=== PATIENT | female | born 1960 | race African-American/Black ===

== ENCOUNTER → 2016-09-20 | Outpatient (CLI) | payer MEDICARE, MEDICAID | LOC: RAD 08:56 | PROVIDERS: ATTEND Internal Medicine Gastroenterology | DX: Q44.6 Cystic disease of liver (principal); R94.5 Abnormal results of liver function studies | CPT/HCPCS: 76705 ==

== ENCOUNTER → 2016-09-29 | Outpatient (CLI) | payer MEDICARE, MEDICAID ==
[2016-09-29 09:15] LABS: ALANINE AMINOTRANSFERASE 23 U/L (9-52); ALBUMIN 4.1 g/dL (3.5-5.0); ALKALINE PHOSPHATASE 104 U/L (38-126); ANION GAP 11 (5-19); ASPARTATE AMINO TRANSFERASE 24 U/L (14-36); BLOOD UREA NITROGEN 15 mg/dL (7-20); CALCIUM 9.6 mg/dL (8.4-10.2); CARBON DIOXIDE 24 mmol/L (22-30); CHLORIDE 108 mmol/L (98-107); CREATININE RESULT 0.99 mg/dL (0.52-1.25); GLUCOSE 89 mg/dL (75-110); POTASSIUM 4.6 mmol/L (3.6-5.0); SODIUM 142.9 mmol/L (137-145); TOTAL PROTEIN 7.9 g/dL (6.3-8.2)
== END ==
LOC: OD 08:26
PROVIDERS: ATTEND Physician Assistant Surgical
DX: R94.5 Abnormal results of liver function studies (principal)
CPT/HCPCS: 36415; 80053

== ENCOUNTER → 2016-10-07 | Outpatient (CLI) | payer MEDICARE, MEDICAID ==
[2016-10-08 15:34] LABS: ABSOLUTE EOSINOPHILS # (AUTO) 0.2 10^3/uL (0.0-0.6); ABSOLUTE LYMPHOCYTES (AUTO) 1.2 10^3/uL (0.5-4.7); ABSOLUTE MONOCYTES (AUTO) 0.3 10^3/uL (0.1-1.4); ABSOLUTE NEUT (AUTO) 1.1 10^3/uL (1.7-8.2); BASOPHILS % (AUTO) 0.9 % (0-2); EOSINOPHILS % (AUTO) 5.4 % (0-6); HEMATOCRIT 32.9 % (36.0-47.0); HEMOGLOBIN 10.7 g/dL (12.0-15.5); HGB HCT DIFFERENCE -0.8; LYMPHOCYTES % (AUTO) 43.8 % (13-45); MEAN CORPUSCULAR HEMOGLOBIN 26.6 pg (27.0-33.4); MEAN CORPUSCULAR HGB CONC 32.5 g/dL (32.0-36.0); MEAN CORPUSCULAR VOLUME 82 fl (80-97); MONOCYTES % (AUTO) 9.9 % (3-13); RED BLOOD COUNT 4.01 10^6/uL (3.72-5.28); RED CELL DISTRIBUTION WIDTH 15.2 % (11.5-14.0); WHITE BLOOD COUNT 2.8 10^3/uL (4.0-10.5)
== END ==
LOC: OD 15:13
PROVIDERS: ATTEND Physician Assistant Surgical
DX: R94.5 Abnormal results of liver function studies (principal)
CPT/HCPCS: 36415; 85025

== ENCOUNTER 2016-10-16 00:16 | Emergency (ER) | payer MEDICARE, MEDICAID ==
[2016-10-16] MEDS ORDERED: ASPIRIN 81 MG TABLET, CHEWABLE PO ONE (00:29)
--- NOTE | 2016-10-16 01:26 | ER Document Report ---
ED General - General Chief Complaint: Shortness Of Breath Stated Complaint: SHORT OF BREATH,CHEST PAIN Notes: Patient is 56-year-old female presents with complaint of difficulty breathing and some chest tightness. She has been intermittent chest pain for last week and then today she had constant chest tightness. She does have a history of CHF. No history of cardiac stenting. She doesn't history of defibrillator. She's had no fevers. She has had some coughing but no more than usual. She's had increased edema in her lower extremities. No fevers. No vomiting. No diarrhea. She has felt weak over last 24 hours. No other complaints at this time. TRAVEL OUTSIDE OF THE [place] IN LAST 30 DAYS: No - Related Data Allergies/Adverse Reactions: Penicillins Allergy (Verified 06/24/16 18:01) headaches/dizziness Past Medical History - Social History Smoking Status: Never Smoker Frequency of alcohol use: None Drug Abuse: None Family History: Reviewed & Not Pertinent - Past Medical History Cardiac Medical History: Reports: Hx Congestive Heart Failure, Hx Heart Attack, Hx Hypercholesterolemia, Hx Hypertension Denies: Hx Atrial Fibrillation, Hx Coronary Artery Disease - cath 2011, Hx Peripheral Vascular Disease, Hx Pulmonary Embolism, Hx Heart Murmur Pulmonary Medical History: Reports: Hx Pneumonia Denies: Hx Asthma, Hx Bronchitis, Hx COPD, Hx Respiratory Failure, Hx Sleep Apnea, Hx Tuberculosis Neurological Medical History: Denies: Hx Cerebrovascular Accident, Hx Seizures Endocrine Medical History: Reports: Hx Hyperthyroidism. Denies: Hx Graves' Disease, Hx Hypothyroidism Renal/ Medical History: Denies: Hx End Stage Renal Disease, Hx Kidney Stones, Hx Ovarian Cysts, Hx Peritoneal Dialysis, Hx Pelvic Inflammatory Disease Malignancy Medical History: Denies: Hx Breast Cancer, Hx Cervical Cancer, Hx Leukemia, Hx Lung Cancer, Hx Ovarian Cancer GI Medical History: Reports: Hx Gastroesophageal Reflux Disease. Denies: Hx Crohn's Disease, Hx Hiatal Hernia, Hx Irritable Bowel, Hx Liver Failure, Hx Ulcer Musculoskeltal Medical History: Reports Hx Arthritis - osteoporosis ,RLS, Denies Hx Fibromyalgia, Denies Hx Multiple Sclerosis, Denies Hx Muscular Dystrophy Psychiatric Medical History: Denies: Hx Bipolar Disorder, Hx Dementia, Hx Depression, Hx Post Traumatic Stress Disorder, Hx Schizophrenia Traumatic Medical History: Denies: Hx Fractures Infectious Medical History: Denies: Hx HIV Past Surgical History: Reports: Hx Cardiac Surgery - defibrilator, Hx Cholecystectomy, Hx Pacemaker. Denies: Hx Appendectomy, Hx Bowel Surgery, Hx Section, Hx Colostomy, Hx Coronary Artery Bypass Graft, Hx Gastric Bypass Surgery, Hx Herniorrhaphy, Hx Hysterectomy, Hx Mastectomy, Hx Tonsillectomy, Hx Tubal Ligation - Immunizations Immunizations up to date: Yes Hx Diphtheria, Pertussis, Tetanus Vaccination: No Hx Pneumococcal Vaccination: 08/22/12 Review of Systems - Review of Systems Notes: My Normal Review Basic REVIEW OF SYSTEMS: CONSTITUTIONAL : Denies fever, chills, or sweats. Denies recent illness. EENT: Denies eye, ear, throat, or mouth pain or symptoms. Denies nasal or sinus congestion. CARDIOVASCULAR: Complains of chest tightness RESPIRATORY: Shortness of breath is worse when she lays flat GASTROINTESTINAL: Denies abdominal pain. Denies nausea, vomiting, or diarrhea. Denies constipation. Last BM: GENITOURINARY: Denies difficulty urinating, painful urination, burning, frequency, or blood in urine. MUSCULOSKELETAL: Lower extremity edema SKIN: Denies rash or skin lesions. NEUROLOGICAL: Denies altered mental status or loss of consciousness. Denies headache. Denies weakness or paralysis or loss of use of either side. Denies problems with gait or speech. Denies sensory or motor loss. ALL OTHER SYSTEMS REVIEWED AND NEGATIVE. Physical Exam - Vital signs Vitals: Temp Pulse Resp BP Pulse Ox 98.8 F 100 20 146/78 H 98 10/16/16 00:25 10/16/16 00:25 10/16/16 00:25 10/16/16 00:25 10/16/16 00:25 - Notes Notes: General Appearance: Well nourished, alert, cooperative, no acute distress, no obvious discomfort. Well-appearing Vitals: reviewed, See vital signs table. Head: no swelling or tenderness to the head Eyes: PERRL, EOMI, Conjuctiva clear Mouth: No decreasd moisture Neck: Supple, no neck tenderness, No thyromegaly Lungs: No wheezing, few basilar rales, No rhonci, No accessory muscle use, good air exchange bilaterally. Heart: Normal rate, Regular rythm, No murmur, no rub Chest wall: Mild pain to palpation of anterior chest; however, patient says his pain is different than the tightness type pain she's been having. Abdomen: Normal BS, soft, No rigidity, No abdominal tenderness, No guarding, no rebound, no abdominal masses, no organomegaly Extremities: strength 5/5 in all extremities, good pulses in all extremities, 2 + edema in bilateral lower extremities no edema. Skin: warm, dry, appropriate color, no rash Neuro: speech clear, oriented x 3, normal affect, responds appropriately to questions. Course - Re-evaluation Re-evalutation: 10/16/16 04:13 I did reevaluate the patient. She is feeling much better after Lasix. She refused the nitroglycerin as it makes her feel unwell in the past. She also refuses the aspirin because "nobody in my family can take aspirin". I did talk to her about the chest pain. Chest pain is atypical. I'm not convinced is cardiac in nature however she does have risk factors and therefore did talk to her about admission. Patient at this time does not really feel like she wants to be admitted. She says she at this time prefers to go home but I did convince her to at least let me call Dr. Arcos, her primary care physician to discuss the case with him. Unfortunately when I went to call Dr. Arcos the operating informed me that the hospitalist recovering him this weekend. I therefore cannot get in touch with Dr. Arcos. I will back and informed patient of this. She does agree to allow me to at least recheck her troponin to make sure that this is staying at 0. If this is staying at 0 then we will discharge her home as she requests on Lasix to help with little bit of extra edema that she has. If the troponin is not staying stable then we will of course admit. Patient is agreeable to this plan. 10/16/16 05:46 Patient's repeat cardiac enzyme is negative. I did talk to her at length again. Patient says that since receiving the Lasix she's been coughing more and feels like she is clear lung since feeling much better. Her chest pain is resolved. She thinks it is more cold. I suspect is more that she had little bit of fluid overload is causing her symptoms based on the extra fluid she had a lower extremities and the fact that she is more short of breath with lying flat. At this time patient wants to be discharged home. I strongly encouraged her to return to ER immediately if she has current chest pain, difficulty breathing, or feels unwell. I informed her that she must follow-up with Dr. Arcos on Tuesday for close reevaluation. She has an upcoming appointment with her gutter installer, Dr. Reyes, on October 20. She may need an outpatient stress test. She's currently on 40 mg of Lasix in the morning. I will add extra 20 mg at night for the next couple of days just to help rid of the extra fluid she has. Dictation of this chart was performed using voice recognition software; therefore, there may be some unintended grammatical errors. 10/16/16 05:52 - Vital Signs Vital signs: Temp Pulse Resp BP Pulse Ox 98.8 F 100 20 146/78 H 96 10/16/16 00:25 10/16/16 00:25 10/16/16 00:25 10/16/16 00:25 10/16/16 02:29 - Laboratory Result Diagrams: 10/16/16 03:17 10/16/16 02:34 Laboratory results interpreted by me: 10/16/16 10/16/16 10/16/16 02:34 02:34 03:17 Hgb 11.1 L Hct 34.1 L MCH 26.6 L RDW 15.2 H Plt Count 74 L Est GFR (Non-Af Amer) 59 L Total Bilirubin 2.0 H NT-Pro-B Natriuret Pep 1360 H - EKG Interpretation by Me Additional EKG results interpreted by me: 10/16/16 01:26 EKG is reviewed and interpreted by me. EKG shows fibrillation with a rate of [address] segment elevation or depression. Mild T-wave inversions in the lateral precordial leads. Also some T-wave inversions in inferior leads. Occasional PVC. QRS duration QTC intervals are within normal range. 2015 is old EKG for comparison. She has the same T-wave inversions and also was in A. fib at that time. 10/16/16 01:27 10/16/16 05:52 Discharge - Discharge Clinical Impression: Cough Chest pain Qualifiers: Chest pain type: unspecified Qualified Code(s): R07.9 - Chest pain, unspecified Condition: Good Disposition: HOME, SELF-CARE Additional Instructions: CHEST PAIN OF UNCLEAR CAUSE: The exact cause of your chest pain isn't clear. Fortunately, there is no evidence of a dangerous medical condition. Further testing may be required to find the source of the pain. Most often, we find that this pain is coming from the chest wall -- the muscles or rib joints in the chest. But chest pain can come from the lung and lung lining, the esophagus, the heart valves or heart lining, and even the stomach or gallbladder. Rest. Eat lightly until the pain is gone. We may prescribe medicine for pain and inflammation. You should call the physician immediately if the pain radiates to the shoulder, jaw or arms; if you start to run a fever or develop a cough; or if you develop shortness of breath, or other new or alarming symptoms. NORMAL EXAM AND WORKUP: At this time, your examination and workup show no significant abnormality. No significant abnormal physical findings were noted. All laboratory, EKG, and imaging (x-ray) studies that were ordered show no significant abnormality. Although your examination and all studies that were ordered showed no significant abnormal finding, there are no examinations and no studies that are 100% accurate. There is always the possibility that some abnormality could exist and not be detected with physical examination or within the limits and capabilities of laboratory and other studies. You should return or follow up as you were instructed on your visit today for further evaluation if your symptoms do not resolve. FOLLOW-UP CARE: If you have been referred to a physician for follow-up care, call the physician s office for an appointment as you were instructed or within the next two days. If you experience worsening or a significant change in your symptoms, notify the physician immediately or return to the Emergency Department at any time for re-evaluation. Please return to ER immediately if you have recurrent chest pain, any increasing difficulty breathing, fevers, or feel that your symptoms are worsening at all. Is called Dr. Arcos office on Tuesday for very close follow- up appointment. Please talked to him about the option of a possible outpatient stress test. Please inform him that we added a extra small dose of Lasix in the evening to regimen for the next couple of days. Please follow-up with Dr. Reyes, your gutter installer, closely. Dictation of this chart was performed using voice recognition software; therefore, there may be some unintended grammatical errors. Prescriptions: Furosemide [Lasix] 20 mg PO QPM #7 tablet Referrals: GLENYS ARCOS MD [Primary Care Provider] - Follow up as needed JOSE ENRIQUE PEREZ MD [ACTIVE STAFF] - 10/18/16
[2016-10-16] MEDS ORDERED: FUROSEMIDE INJ/PF 40 MG/4 ML SDV IV ONE (01:35)
[2016-10-16] MEDS ORDERED: NITROGLYCERIN 2% OINTMENT 1 GM PACKET TP ONE (03:08)
[2016-10-16 03:14] LABS: ALANINE AMINOTRANSFERASE 23 U/L (9-52); ALKALINE PHOSPHATASE 98 U/L (38-126); ANION GAP 11 (5-19); ASPARTATE AMINO TRANSFERASE 27 U/L (14-36); BLOOD UREA NITROGEN 18 mg/dL (7-20); CALCIUM 9.2 mg/dL (8.4-10.2); CARBON DIOXIDE 24 mmol/L (22-30); CHLORIDE 107 mmol/L (98-107); CREATINE KINASE 81 U/L (30-135); CREATININE RESULT 0.97 mg/dL (0.52-1.25); GLUCOSE 89 mg/dL (75-110); POTASSIUM 4.2 mmol/L (3.6-5.0); SODIUM 141.6 mmol/L (137-145); TOTAL PROTEIN 7.9 g/dL (6.3-8.2)
[2016-10-16 03:27] LABS: CREATINE KINASE MB < 0.22 ng/mL (<4.55); TROPONIN I < 0.012 ng/mL
[2016-10-16 03:29] LABS: ABSOLUTE EOSINOPHILS # (AUTO) 0.1 10^3/uL (0.0-0.6); ABSOLUTE LYMPHOCYTES (AUTO) 1.4 10^3/uL (0.5-4.7); ABSOLUTE MONOCYTES (AUTO) 0.4 10^3/uL (0.1-1.4); ABSOLUTE NEUT (AUTO) 2.3 10^3/uL (1.7-8.2); BASOPHILS % (AUTO) 0.6 % (0-2); EOSINOPHILS % (AUTO) 3.2 % (0-6); HEMATOCRIT 34.1 % (36.0-47.0); HEMOGLOBIN 11.1 g/dL (12.0-15.5); HGB HCT DIFFERENCE -0.8; LYMPHOCYTES % (AUTO) 33.2 % (13-45); MEAN CORPUSCULAR HEMOGLOBIN 26.6 pg (27.0-33.4); MEAN CORPUSCULAR HGB CONC 32.6 g/dL (32.0-36.0); MEAN CORPUSCULAR VOLUME 82 fl (80-97); MONOCYTES % (AUTO) 8.9 % (3-13); RED BLOOD COUNT 4.18 10^6/uL (3.72-5.28); RED CELL DISTRIBUTION WIDTH 15.2 % (11.5-14.0); SEGMENTED NEUTROPHILS % (AUTO) 54.1 % (42-78); WHITE BLOOD COUNT 4.2 10^3/uL (4.0-10.5)
[2016-10-16 05:55] VITALS: BP 130/57
== END 2016-10-16 06:51 | disposition home or self-care (01) ==
LOC: ER 00:16
DX: R05 Cough (principal); R07.9 Chest pain, unspecified; R06.02 Shortness of breath; I50.9 Heart failure, unspecified
CPT/HCPCS: 99285; 36415; 82553; 82550; 85025; 80053; 84484; 83880; 71010; J1940

== ENCOUNTER → 2016-12-22 | Outpatient (CLI) | payer MEDICARE, MEDICAID ==
[2016-12-22 08:58] LABS: ALANINE AMINOTRANSFERASE 17 U/L (9-52); ALKALINE PHOSPHATASE 106 U/L (38-126); ANION GAP 15 (5-19); ASPARTATE AMINO TRANSFERASE 22 U/L (14-36); BILIRUBIN,DIRECT 0.6 mg/dL (0.0-0.4); BILIRUBIN,TOTAL 1.9 mg/dL (0.2-1.3); BLOOD UREA NITROGEN 17 mg/dL (7-20); CALCIUM 9.3 mg/dL (8.4-10.2); CARBON DIOXIDE 24 mmol/L (22-30); CHLORIDE 107 mmol/L (98-107); CHOLESTEROL 129.25 mg/dL (0-200); Direct HDL 44 mg/dL (>40); GLUCOSE 91 mg/dL (75-110); POTASSIUM 4.3 mmol/L (3.6-5.0); SODIUM 145.6 mmol/L (137-145); TOTAL PROTEIN 7.9 g/dL (6.3-8.2); TRIGLYCERIDES 50 mg/dL (<150)
[2016-12-22 09:09] LABS: DIRECT LDL 56 mg/dL (<100)
== END ==
LOC: OD 07:26
PROVIDERS: ATTEND Internal Medicine
DX: E78.2 Mixed hyperlipidemia (principal); Z13.1 Encounter for screening for diabetes mellitus; E55.9 Vitamin D deficiency, unspecified; E66.9 Obesity, unspecified; Z79.899 Other long term (current) drug therapy
CPT/HCPCS: 36415; 80053; 80061; 82306; 84443

== ENCOUNTER → 2017-08-04 | Outpatient (CLI) | payer MEDICARE, MEDICAID ==
--- NOTE | 2017-08-04 10:09 | RADIOLOGY REPORT (SQ) ---
EXAM DESCRIPTION: CHEST PA/LATERAL COMPLETED DATE/TIME: 08/04/2017 8:36 am REASON FOR STUDY: ACUTE BRONCHITIS, UNSPECIFIED COMPARISON: Chest film 10/16/2016, 07/21/2016 EXAM PARAMETERS: NUMBER OF VIEWS: two views TECHNIQUE: Digital Frontal and Lateral radiographic views of the chest acquired. RADIATION DOSE: NA LIMITATIONS: none FINDINGS: LUNGS AND PLEURA: No opacities, masses or pneumothorax. No pleural effusion. MEDIASTINUM AND HILAR STRUCTURES: No masses or contour abnormalities. HEART AND VASCULAR STRUCTURES: Stable marked cardiomegaly BONES: No acute findings. HARDWARE: Left-sided dual lead pacemaker OTHER: No other significant finding. IMPRESSION: Stable marked cardiomegaly. No acute findings TECHNICAL DOCUMENTATION: JOB ID: [id number] [employer]- All Rights Reserved
== END ==
LOC: OD 08:20
PROVIDERS: ATTEND Internal Medicine
DX: J20.9 Acute bronchitis, unspecified (principal)
CPT/HCPCS: 71020

== ENCOUNTER → 2017-08-12 | Outpatient (CLI) | payer MEDICARE, MEDICAID ==
--- NOTE | 2017-08-12 10:48 | WOMENS IMAGING REPORT ---
EXAM DESCRIPTION: BILAT SCREENING MAMMO W/CAD COMPLETED DATE/TIME: 08/12/2017 10:29 am REASON FOR STUDY: ROUTINE SCREENING; Z12.31 Z12.31 ENCNTR SCREEN MAMMOGRAM FOR MALIGNANT NEOPLASM O F MATTIE COMPARISON: 2009 to 2015 TECHNIQUE: Standard craniocaudal and mediolateral oblique views of each breast recorded using [employer] l acquisition. LIMITATIONS: None. FINDINGS: No masses, calcifications or architectural distortion. No areas of suspicion. Read with the assistance of CAD. .[facility] - R2 Cenova Version 1.3 .[facility] - R2 Cenova Version 1.3 .[facility] - R2 Cenova Version 2.4 .[facility] - R2 Cenova Version 2.4 .[facility] - R2 Door To [employer] Selling Agent Version 9.2 IMPRESSION: NORMAL MAMMOGRAM. BIRADS 1. BREAST DENSITY: b. There are scattered areas of fibroglandular density. BIRAD: 1 NEGATIVE RECOMMENDATION: ROUTINE SCREENING COMMENT: The patient has been notified of the results by letter per SA requirements. Additional no tification policies are in place for contacting patient with suspicious or incomplete findings. Quality ID #[id number]: The [employer] recommends an annual screening mammogram for women aged 40 years or over. This facility utilizes a reminder system to ensure that all patients receive reminder letters, and/or direct phone calls for appointments. This includes reminders for routine scr eening mammograms, diagnostic mammograms, or other Breast Imaging Interventions when appropriate. Th is patient will be placed in the appropriate reminder system. The [employer] (ACR) has developed recommendations for screening MRI of the breast s in certain patient populations, to be used in conjunction with mammography. Breast MRI surveillanc e may be appropriate for women with more than 20% lifetime risk of developing breast cancer as deter mined by genetic testing, significant family history of the disease, or history of mantle radiation f or Hodgkins Disease. ACR Practice Guidelines 2008. TECHNICAL DOCUMENTATION: FINDING NUMBER: (1) ASSESSMENT: (1) JOB ID: [id number] [employer]- All Rights Reserved
== END ==
LOC: WI 10:11
PROVIDERS: ATTEND Internal Medicine
DX: Z12.31 Encounter for screening mammogram for malignant neoplasm of breast (principal)
CPT/HCPCS: 77067; G0202

== ENCOUNTER 2017-08-16 03:16 | Emergency (ER) | payer MEDICARE, MEDICAID ==
--- NOTE | 2017-08-16 03:45 | ER Document Report ---
ED Cardiac - General TRAVEL OUTSIDE OF THE [place] IN LAST 30 DAYS: No <CHRISTA VYAS - Last Filed: 08/16/17 07:25> <SHELBY WATSON - Last Filed: 08/16/17 15:27> - General Chief Complaint: Irregular Pulse Stated Complaint: SHORTNESS OF BREATH Time Seen by Provider: 08/16/17 03:30 Notes: Patient is a 56-year-old female with a history of atrial fibrillation and AICD that comes emergency department for chief complaint of her pacemaker firing multiple times today. She states it feels like it is firing weekly, it is painful but not nearly as strong as usual, far more than 10 times tonight. She states it has not fired since she came in by EMS. She denies any current symptoms. She has a [employer] A pacemaker placed in [place] in 2009. She follows with local cardiology Dr. Martino. She takes Xarelto, metoprolol, she states she is compliant with her medications. She also just recently finished prednisone and azithromycin for a upper respiratory infection. (CHRISTA VYAS) - Related Data Allergies/Adverse Reactions: Penicillins Allergy (Verified 06/26/17 07:10) headaches/dizziness Past Medical History - General Information source: Patient - Social History Smoking Status: Never Smoker Frequency of alcohol use: None Drug Abuse: None Lives with: Family Family History: Reviewed & Not Pertinent - Past Medical History Cardiac Medical History: Reports: Hx Congestive Heart Failure, Hx Heart Attack, Hx Hypercholesterolemia, Hx Hypertension Denies: Hx Atrial Fibrillation, Hx Coronary Artery Disease - cath 2011, Hx Peripheral Vascular Disease, Hx Pulmonary Embolism, Hx Heart Murmur Pulmonary Medical History: Reports: Hx Pneumonia Denies: Hx Asthma, Hx Bronchitis, Hx COPD, Hx Respiratory Failure, Hx Sleep Apnea, Hx Tuberculosis Neurological Medical History: Denies: Hx Cerebrovascular Accident, Hx Seizures Endocrine Medical History: Reports: Hx Hyperthyroidism. Denies: Hx Graves' Disease, Hx Hypothyroidism Renal/ Medical History: Denies: Hx End Stage Renal Disease, Hx Kidney Stones, Hx Ovarian Cysts, Hx Peritoneal Dialysis, Hx Pelvic Inflammatory Disease Malignancy Medical History: Denies: Hx Breast Cancer, Hx Cervical Cancer, Hx Leukemia, Hx Lung Cancer, Hx Ovarian Cancer GI Medical History: Reports: Hx Gastroesophageal Reflux Disease. Denies: Hx Crohn's Disease, Hx Hiatal Hernia, Hx Irritable Bowel, Hx Liver Failure, Hx Pancreatitis, Hx Ulcer Musculoskeltal Medical History: Reports Hx Arthritis - osteoporosis ,RLS, Denies Hx Fibromyalgia, Denies Hx Multiple Sclerosis, Denies Hx Muscular Dystrophy Psychiatric Medical History: Denies: Hx Bipolar Disorder, Hx Dementia, Hx Depression, Hx Post Traumatic Stress Disorder, Hx Schizophrenia Traumatic Medical History: Denies: Hx Fractures Infectious Medical History: Denies: Hx HIV Past Surgical History: Reports: Hx Cardiac Surgery - defibrilator 2009, Hx Cholecystectomy, Hx Pacemaker. Denies: Hx Appendectomy, Hx Bowel Surgery, Hx Section, Hx Colostomy, Hx Coronary Artery Bypass Graft, Hx Gastric Bypass Surgery, Hx Herniorrhaphy, Hx Hysterectomy, Hx Mastectomy, Hx Tonsillectomy, Hx Tubal Ligation - Immunizations Immunizations up to date: Yes Hx Diphtheria, Pertussis, Tetanus Vaccination: No Hx Pneumococcal Vaccination: 08/22/12 <CHRISTA VYAS - Last Filed: 08/16/17 07:25> Review of Systems - Review of Systems Constitutional: No symptoms reported EENT: No symptoms reported Cardiovascular: See HPI Respiratory: No symptoms reported Gastrointestinal: No symptoms reported Genitourinary: No symptoms reported Female Genitourinary: No symptoms reported Musculoskeletal: No symptoms reported Skin: No symptoms reported Hematologic/Lymphatic: No symptoms reported Neurological/Psychological: No symptoms reported <CHRISTA VYAS - Last Filed: 08/16/17 07:25> Physical Exam - Vital signs Interpretation: Normal - General General appearance: Appears well, Alert - HEENT Head: Normocephalic, Atraumatic Eyes: Normal Pupils: PERRL - Respiratory Respiratory status: No respiratory distress Chest status: Tender - Mild anterior chest wall tenderness, generally, nonspecific Breath sounds: Normal. No: Decreased air movement, Wheezing Chest palpation: Normal - Cardiovascular Rhythm: Irregularly irregular. No: Tachycardia Heart sounds: S1 appreciated, S2 appreciated Normal capillary refill: Yes - Abdominal Inspection: Normal Distension: No distension Bowel sounds: Normal Tenderness: Nontender Organomegaly: No organomegaly - Back Back: Normal, Nontender - Extremities General upper extremity: Normal inspection, Nontender, Normal color, Normal ROM , Normal temperature General lower extremity: Normal inspection, Nontender, Normal color, Normal ROM , Normal temperature, Normal weight bearing. No: Della's sign - Neurological Neuro grossly intact: Yes Cognition: Normal Orientation: AAOx4 [place] Coma Scale Eye Opening: Spontaneous [place] Coma Scale Verbal: Oriented [place] Coma Scale Motor: Obeys Commands [place] Coma Scale Total: 15 Speech: Normal Motor strength normal: LUE, RUE, LLE, RLE Sensory: Normal - Psychological Associated symptoms: Normal affect, Normal mood - Skin Skin Temperature: Warm Skin Moisture: Dry Skin Color: Normal <CHRISTA VYAS - Last Filed: 08/16/17 07:25> - Vital signs Vitals: Pulse Ox 99 08/16/17 03:25 Course - Laboratory Result Diagrams: 08/16/17 06:28 08/16/17 04:43 <CHRISTA VYAS - Last Filed: 08/16/17 07:25> - Laboratory Result Diagrams: 08/16/17 06:28 08/16/17 04:43 <SHELBY WATSON - Last Filed: 08/16/17 15:27> - Re-evaluation Re-evalutation: EKG shows atrial fibrillation at a rate of 83, right bundle branch block, inverted T waves anteriorly in leads V2, V3, V4, consistent with prior EKG, no significant changes compared to prior. Patient currently asymptomatic. Patient is telling me that her pacemaker has been "recalled", states that she was told that when her battery is dying that they will replace it. Interrogation and workup pending. CBC, chemistry, magnesium, troponin unremarkable. Chest x-ray stable. 08/16/17 07:24 Interrogation report is pending. Based on this patient will likely need transfer to [place] where she sees boiler control room operator Dr. Anderson in the event that she is having multiple AICD shocks/inappropriate shocks. Introduced to Shelby VALLE at bedside. (CHRISTA VYAS) 08/16/17 08:45 to make a long story short, I am now calling [facility] to speak wtih the boiler control room operator covering Dr Wu- the fellow. Mark figueroa the [employer] interrogator in [place] at [phone] says the original interrogator was 3 hours away and having car trouble and is waiting for AAA so were trying to work out the patient going to [place]. 08/16/17 14:27 pt is doing well, room assignment 607, pending [facility] to come and take her to [facility]. No defibs while I have been taking care of her. She has taken her mediations and eaten. (cardiac connection said no pacer replacement today,) 08/16/17 15:27 dr ward confirmed at bedside that pt was stable for transport to [facility]. ( SHELBY WATSON) - Vital Signs Vital signs: Temp Pulse Resp BP Pulse Ox 98.2 F 19 116/67 98 08/16/17 15:01 08/16/17 15:01 08/16/17 15:01 08/16/17 15:01 - Laboratory Laboratory results interpreted by me: 08/16/17 08/16/17 04:43 06:28 Hgb 8.5 L Hct 27.0 L MCV 72 L MCH 22.7 L MCHC 31.6 L RDW 17.2 H Plt Count 119 L BUN 24 H Est GFR (Non-Af Amer) 53 L Total Bilirubin 1.4 H Direct Bilirubin 0.6 H Discharge <CHRISTA VYAS - Last Filed: 08/16/17 07:25> <SHELBY WATSON - Last Filed: 08/16/17 15:27> - Discharge Referrals: GLENYS ARCOS MD [Primary Care Provider] - Follow up as needed
--- NOTE | 2017-08-16 05:41 | RADIOLOGY REPORT (SQ) ---
EXAM DESCRIPTION: CHEST SINGLE VIEW CLINICAL HISTORY: chest pain, pacemaker firing COMPARISON: 08/04/2017 FINDINGS: Single frontal view of the chest. Cardiomegaly. Left-sided dual-lead pacemaker. Leads overlie the chest. No consolidation, pneumothorax, or pleural effusion. No displaced rib fractures identified. Upper abdominal soft tissues are unremarkable. IMPRESSION: 1. No acute pulmonary process identified. Cardiomegaly.
[2017-08-16 05:42] LABS: ALANINE AMINOTRANSFERASE 21 U/L (9-52); ALBUMIN 4.1 g/dL (3.5-5.0); ALKALINE PHOSPHATASE 90 U/L (38-126); ANION GAP 11 (5-19); ASPARTATE AMINO TRANSFERASE 31 U/L (14-36); BILIRUBIN,DIRECT 0.6 mg/dL (0.0-0.4); BILIRUBIN,TOTAL 1.4 mg/dL (0.2-1.3); BLOOD UREA NITROGEN 24 mg/dL (7-20); CALCIUM 9.7 mg/dL (8.4-10.2); CARBON DIOXIDE 26 mmol/L (22-30); CHLORIDE 107 mmol/L (98-107); GLUCOSE 102 mg/dL (75-110); MAGNESIUM 2.1 mg/dL (1.6-2.3); POTASSIUM 4.1 mmol/L (3.6-5.0); SODIUM 144.1 mmol/L (137-145)
[2017-08-16 06:45] LABS: ABSOLUTE BASOPHILS # (AUTO) 0.1 10^3/uL (0.0-0.2); ABSOLUTE EOSINOPHILS # (AUTO) 0.2 10^3/uL (0.0-0.6); ABSOLUTE LYMPHOCYTES (AUTO) 1.5 10^3/uL (0.5-4.7); ABSOLUTE MONOCYTES (AUTO) 0.5 10^3/uL (0.1-1.4); ABSOLUTE NEUT (AUTO) 2.1 10^3/uL (1.7-8.2); BASOPHILS % (AUTO) 1.4 % (0-2); EOSINOPHILS % (AUTO) 3.9 % (0-6); HEMOGLOBIN 8.5 g/dL (12.0-15.5); MEAN CORPUSCULAR HEMOGLOBIN 22.7 pg (27.0-33.4); MEAN CORPUSCULAR HGB CONC 31.6 g/dL (32.0-36.0); MEAN CORPUSCULAR VOLUME 72 fl (80-97); MONOCYTES % (AUTO) 10.9 % (3-13); PLATELET COUNT 119 10^3/uL (150-450); RED BLOOD COUNT 3.76 10^6/uL (3.72-5.28); RED CELL DISTRIBUTION WIDTH 17.2 % (11.5-14.0); SEGMENTED NEUTROPHILS % (AUTO) 48.8 % (42-78); TOTAL CELLS COUNTED % (AUTO) 100 %; WHITE BLOOD COUNT 4.3 10^3/uL (4.0-10.5)
--- NOTE | 2017-08-16 10:59 | EKG REPORT ---
SEVERITY:- ABNORMAL ECG - ATRIAL FIBRILLATION INCOMPLETE RIGHT BUNDLE BRANCH BLOCK : Confirmed by: Kayla Martino MD 16-Aug-2017 10:57:51
--- NOTE | 2017-08-16 15:13 | ER Document Report ---
Doctor's Note Notes: 08/16/17 15:12 Pre-transfer evaluation: Transport team is here to transfer patient to [facility]. Patient is alert, conversant, and in no distress whatsoever. Vital signs are satisfactory. Patient is stable for transport.
[2017-08-16 15:23] VITALS: BP 116/67
== END 2017-08-16 15:25 | disposition short-term general hospital (02) ==
LOC: ER 03:16
DX: Z45.018 Encounter for adjustment and management of other part of cardiac pacemaker (principal); I48.91 Unspecified atrial fibrillation; I45.10 Unspecified right bundle-branch block; I10 Essential (primary) hypertension; I25.2 Old myocardial infarction; Z95.810 Presence of automatic (implantable) cardiac defibrillator; Z79.01 Long term (current) use of anticoagulants; Z79.899 Other long term (current) drug therapy; Z88.0 Allergy status to penicillin
CPT/HCPCS: 36415; 71010; 80053; 83735; 84484; 85025; 93005; 93010; 99285

== ENCOUNTER 2017-09-15 18:36 | Emergency (ER) | payer MEDICARE, MEDICAID ==
[2017-09-15] MEDS ORDERED: ASPIRIN 81 MG TABLET, CHEWABLE PO ONE (20:19)
--- NOTE | 2017-09-15 20:21 | ER Document Report ---
ED Medical Screen (RME) - General Chief Complaint: Shortness Of Breath Stated Complaint: SHORTNESS OF BREATHING Time Seen by Provider: 09/15/17 20:19 Mode of Arrival: Ambulatory Information source: Patient Notes: Patient presents complaining of 3 day history of chest pain, dyspnea, feeling weak and dizzy. Patient denies any nausea, vomiting or diarrhea. Patient states that cough has been nonproductive. Patient states that she has a known leaky heart valve and that her defibrillator has been recalled and only has about 1 year left on the battery. hx: CHF, A. fib, leaky heart valve, defibrillator I have greeted and performed a rapid initial assessment of this patient. A comprehensive ED assessment and evaluation of the patient, analysis of test results and completion of the medical decision making process will be conducted by additional ED providers. TRAVEL OUTSIDE OF THE [place] IN LAST 30 DAYS: No - Related Data Allergies/Adverse Reactions: Penicillins Allergy (Verified 06/26/17 07:10) headaches/dizziness Past Medical History - Social History Frequency of alcohol use: None Drug Abuse: None Family history: Reviewed & Not Pertinent - Past Medical History Cardiac Medical History: Reports: Hx Congestive Heart Failure, Hx Heart Attack, Hx Hypercholesterolemia, Hx Hypertension Denies: Hx Atrial Fibrillation, Hx Coronary Artery Disease - cath 2011, Hx Peripheral Vascular Disease, Hx Pulmonary Embolism, Hx Heart Murmur Pulmonary Medical History: Reports: Hx Pneumonia Denies: Hx Asthma, Hx Bronchitis, Hx COPD, Hx Respiratory Failure, Hx Sleep Apnea, Hx Tuberculosis Neurological Medical History: Denies: Hx Cerebrovascular Accident, Hx Seizures Endocrine Medical History: Reports: Hx Hyperthyroidism. Denies: Hx Graves' Disease, Hx Hypothyroidism Renal/ Medical History: Denies: Hx End Stage Renal Disease, Hx Kidney Stones, Hx Ovarian Cysts, Hx Peritoneal Dialysis, Hx Pelvic Inflammatory Disease Malignancy Medical History: Denies: Hx Breast Cancer, Hx Cervical Cancer, Hx Leukemia, Hx Lung Cancer, Hx Ovarian Cancer GI Medical History: Reports: Hx Gastroesophageal Reflux Disease. Denies: Hx Crohn's Disease, Hx Hiatal Hernia, Hx Irritable Bowel, Hx Liver Failure, Hx Pancreatitis, Hx Ulcer Musculoskeltal Medical History: Reports Hx Arthritis - osteoporosis ,RLS, Denies Hx Fibromyalgia, Denies Hx Multiple Sclerosis, Denies Hx Muscular Dystrophy Psychiatric Medical History: Denies: Hx Bipolar Disorder, Hx Dementia, Hx Depression, Hx Post Traumatic Stress Disorder, Hx Schizophrenia Traumatic Medical History: Denies: Hx Fractures Infectious Medical History: Denies: Hx HIV Past Surgical History: Reports: Hx Cardiac Surgery - defibrilator 2009, Hx Cholecystectomy, Hx Pacemaker. Denies: Hx Appendectomy, Hx Bowel Surgery, Hx Section, Hx Colostomy, Hx Coronary Artery Bypass Graft, Hx Gastric Bypass Surgery, Hx Herniorrhaphy, Hx Hysterectomy, Hx Mastectomy, Hx Tonsillectomy, Hx Tubal Ligation - Immunizations Immunizations up to date: Yes Hx Diphtheria, Pertussis, Tetanus Vaccination: No History of Influenza Vaccine for 05/2017 - 10/2017 Season: No Physical Exam - Vital signs Vitals: Temp Pulse BP Pulse Ox 98.5 F 79 130/69 H 90 L 09/15/17 19:51 09/15/17 19:51 09/15/17 19:51 09/15/17 19:51 - Cardiovascular Rhythm: Irregularly irregular Heart sounds: S1 appreciated, S2 appreciated Course - Vital Signs Vital signs: Temp Pulse Resp BP Pulse Ox 98.5 F 79 130/69 H 90 L 09/15/17 19:51 09/15/17 19:51 09/15/17 19:51 09/15/17 19:51
--- NOTE | 2017-09-15 21:42 | RADIOLOGY REPORT (SQ) ---
EXAM DESCRIPTION: CHEST PA/LAT COMPLETED DATE/TIME: 09/15/2017 8:55 pm REASON FOR STUDY: cp, sob COMPARISON: None. EXAM PARAMETERS: NUMBER OF VIEWS: two views TECHNIQUE: Digital Frontal and Lateral radiographic views of the chest acquired. RADIATION DOSE: NA LIMITATIONS: none FINDINGS: LUNGS AND PLEURA: No acute opacities, masses or pneumothorax. No pleural effusion. MEDIASTINUM AND HILAR STRUCTURES: Stable. HEART AND VASCULAR STRUCTURES: Stable cardiac enlargement. BONES: No acute findings. HARDWARE: Stable cardiac defibrillator. OTHER: No other significant finding. IMPRESSION: No acute findings. TECHNICAL DOCUMENTATION: JOB ID: [id number] [place]-72 2010 [employer]- All Rights Reserved
--- NOTE | 2017-09-16 00:56 | ER Document Report ---
ED Respiratory Problem - General Mode of Arrival: Ambulatory TRAVEL OUTSIDE OF THE [place] IN LAST 30 DAYS: No <CHRISTA VYAS - Last Filed: 09/16/17 08:05> <AJAY DYSON - Last Filed: 09/16/17 16:12> - General Chief Complaint: Shortness Of Breath Stated Complaint: SHORTNESS OF BREATHING Time Seen by Provider: 09/15/17 20:19 Notes: Patient is a 57-year-old female with a history of atrial fibrillation, AICD, congestive heart failure, and multiple valve regurgitation pending double valve replacement next month that comes emergency department for chief complaint of increased dyspnea on exertion over the past 3 days. She reports intermittent sharp pains in her chest which she states is normal for her. She denies fever or chills. Minimal cough. Denies any significant lower extremity swelling. She reports a normal bowel movement this morning. She is on Xarelto. She admits she cannot stop eating ice. She is not on iron. Normal colonoscopy in the past year. Follows with local cardiology Dr. Reyes and also in [place]. (CHRISTA VYAS) - Related Data Allergies/Adverse Reactions: Penicillins Allergy (Verified 06/26/17 07:10) headaches/dizziness Past Medical History - General Information source: Patient - Social History Smoking Status: Never Smoker Frequency of alcohol use: None Drug Abuse: None Lives with: Family Family History: Reviewed & Not Pertinent Patient has suicidal ideation: No Patient has homicidal ideation: No - Past Medical History Cardiac Medical History: Reports: Hx Congestive Heart Failure, Hx Heart Attack, Hx Hypercholesterolemia, Hx Hypertension Denies: Hx Atrial Fibrillation, Hx Coronary Artery Disease - cath 2011, Hx Peripheral Vascular Disease, Hx Pulmonary Embolism, Hx Heart Murmur Pulmonary Medical History: Reports: Hx Pneumonia Denies: Hx Asthma, Hx Bronchitis, Hx COPD, Hx Respiratory Failure, Hx Sleep Apnea, Hx Tuberculosis Neurological Medical History: Denies: Hx Cerebrovascular Accident, Hx Seizures Endocrine Medical History: Reports: Hx Hyperthyroidism. Denies: Hx Graves' Disease, Hx Hypothyroidism Renal/ Medical History: Denies: Hx End Stage Renal Disease, Hx Kidney Stones, Hx Ovarian Cysts, Hx Peritoneal Dialysis, Hx Pelvic Inflammatory Disease Malignancy Medical History: Denies: Hx Breast Cancer, Hx Cervical Cancer, Hx Leukemia, Hx Lung Cancer, Hx Ovarian Cancer GI Medical History: Reports: Hx Gastroesophageal Reflux Disease. Denies: Hx Crohn's Disease, Hx Hiatal Hernia, Hx Irritable Bowel, Hx Liver Failure, Hx Pancreatitis, Hx Ulcer Musculoskeltal Medical History: Reports Hx Arthritis - osteoporosis ,RLS, Denies Hx Fibromyalgia, Denies Hx Multiple Sclerosis, Denies Hx Muscular Dystrophy Psychiatric Medical History: Denies: Hx Bipolar Disorder, Hx Dementia, Hx Depression, Hx Post Traumatic Stress Disorder, Hx Schizophrenia Traumatic Medical History: Denies: Hx Fractures Infectious Medical History: Denies: Hx HIV Past Surgical History: Reports: Hx Cardiac Surgery - defibrilator 2009, Hx Cholecystectomy, Hx Pacemaker. Denies: Hx Appendectomy, Hx Bowel Surgery, Hx Section, Hx Colostomy, Hx Coronary Artery Bypass Graft, Hx Gastric Bypass Surgery, Hx Herniorrhaphy, Hx Hysterectomy, Hx Mastectomy, Hx Tonsillectomy, Hx Tubal Ligation - Immunizations Immunizations up to date: Yes Hx Diphtheria, Pertussis, Tetanus Vaccination: No Hx Pneumococcal Vaccination: 08/22/12 <CHRISTA VYAS - Last Filed: 09/16/17 08:05> Review of Systems - Review of Systems Constitutional: See HPI EENT: No symptoms reported Cardiovascular: See HPI Respiratory: No symptoms reported Gastrointestinal: No symptoms reported Genitourinary: No symptoms reported Female Genitourinary: No symptoms reported Musculoskeletal: No symptoms reported Skin: No symptoms reported Hematologic/Lymphatic: No symptoms reported Neurological/Psychological: No symptoms reported <CHRISTA VYAS Last Filed: 09/16/17 08:05> Physical Exam - Vital signs Interpretation: Normal - General General appearance: Appears well, Alert In distress: None - HEENT Head: Normocephalic, Atraumatic Eyes: Normal Conjunctiva: Normal Extraocular movements intact: Yes Eyelashes: Normal Pupils: PERRL Sinus: Normal Nasal: Normal Mucous membranes: Normal Pharynx: Normal Neck: Normal - Respiratory Respiratory status: No respiratory distress Chest status: Nontender Breath sounds: Normal Chest palpation: Normal - Cardiovascular Rhythm: Irregularly irregular. No: Tachycardia Heart sounds: S1 appreciated, S2 appreciated Murmur: Yes - Abdominal Inspection: Normal Distension: No distension Bowel sounds: Normal Tenderness: Nontender. No: Tender, Guarding - Rectal Stool: Heme positive, See lab result. No: Heme negative, Black, Bloody Hemorrhoids: None - Back Back: Normal, Nontender. No: Tender - Extremities General upper extremity: Normal inspection, Nontender, Normal ROM, Normal strength General lower extremity: Normal inspection, Nontender, Normal ROM, Normal strength - Neurological Neuro grossly intact: Yes Cognition: Normal Orientation: AAOx4 [place] Coma Scale Eye Opening: Spontaneous [place] Coma Scale Verbal: Oriented [place] Coma Scale Motor: Obeys Commands [place] Coma Scale Total: 15 Speech: Normal Motor strength normal: LUE, RUE, LLE, RLE Sensory: Normal - Psychological Associated symptoms: Normal affect, Normal mood - Skin Skin Temperature: Warm Skin Moisture: Dry Skin Color: Normal <CHRISTA VYAS - Last Filed: 09/16/17 08:05> - Vital signs Vitals: Temp Pulse BP Pulse Ox 98.5 F 79 130/69 H 90 L 09/15/17 19:51 09/15/17 19:51 09/15/17 19:51 09/15/17 19:51 Course - Laboratory Result Diagrams: 09/16/17 01:00 09/16/17 01:00 <CHRISTA VYAS - Last Filed: 09/16/17 08:05> - Laboratory Result Diagrams: 09/16/17 01:00 09/16/17 01:00 <AJAY DYSON - Last Filed: 09/16/17 16:12> - Re-evaluation Re-evalutation: EKG shows chronic atrial fibrillation at a rate of 80. Chest x-ray with no pulmonary vascular congestion. Patient has clear lungs on auscultation. No significant lower extremity edema. Troponin is not elevated. CBC demonstrates worsening microcytic anemia. Patient unsure if she is having bloody stools on reevaluation. I performed a digital rectal exam, no obvious or heavy bleeding, however Hemoccult is positive. I suspect patient's worsening dyspnea on exertion is from a gastrointestinal bleed. She is on anticoagulation with Xarelto. She has no upper or lower abdominal pain. Benign abdomen on exam. No hypotension or tachycardia. Type and screen performed. Called dedicated owner operator, we do not have gastroenterology for the rest of the month. Hospitals nearby on diversion. Patient will likely need serial CBCs, possible transfusion, possible endoscopy/colonoscopy. 09/16/[address] Stratton, surgery will be consulting on the patient (consult to be placed) to potentially perform endoscopy/colonoscopy. 09/16/17 07:[address] Arcos. (CHRISTA VYAS) 09/16/17 08:30 Dr. Arcos returned the phone call. I thoroughly reviewed the case with Dr. Arcos and reiterated that she will need admitted for serial CBC monitoring as she does have a down trend in her hemoglobin and hematocrit as well as being on Xarelto with a guaiac positive stool and appears to be symptomatic anemia. The surgeon has already agreed to perform the colonoscopy and endoscopy. Dr. Arcos states that she just needs 1 unit of blood and discharge for an outpatient endoscopy and colonoscopy to review be performed as he is not worried about the hemoglobin decreased from 8.5 to 8.0 over the last month even with a guaiac positive stool and patient being on Xarelto. I called the surgeon back who stated that if that is what Dr. Arcos wants to do then he is okay with it. Reviewed with patient who will call her PCM today to schedule an appointment for a recheck, but knows to return with any worsening symptoms. 09/16/17 10:06 Patient states that she is feeling good and would like a lunch tray. She has no new concerns or complaints. Pt appears well and is sitting comfortably watching tv and speaking clearly in complete sentences. 09/16/17 14:19 Pt states that she is starting to feel anxious. I will give her ativan 0.5mg IV. Pt was given lunch as well. 09/16/17 16:09 Pt reportedly dropped to 89% on RA with ambulation after walking care home around the ED, but came back to >95% on RA thereafter. Pt did show signs of sob, but resolved after taking a break. I called Dr. Arcos and again reiterated that she does have [facility] and her O2 results. Dr. Arcos states that she can f/u as an outpatient for outpatient scopes and recheck. Pt has otherwise done well within the ED during her stay aside from becoming anxious a couple hours ago which has since resolved with the ativan. No other concerns or complaints at this time. Patient to call Dr. Arcos's office today to schedule an appointment for further evaluation and management. Patient to return to the ED with any worsening/concerning symptoms otherwise as reviewed in discharge. Patient is in agreement. (AJAY DYSON) - Vital Signs Vital signs: Temp Pulse Resp BP Pulse Ox 97.5 F 85 16 110/77 99 09/16/17 15:29 09/16/17 15:30 09/16/17 15:30 09/16/17 15:29 09/16/17 15:30 - Laboratory Laboratory results interpreted by me: 09/16/17 09/16/17 09/16/17 01:00 01:00 01:00 WBC 3.3 L RBC 3.69 L Hgb 8.0 L Hct 25.6 L MCV 69 L MCH 21.6 L MCHC 31.2 L RDW 17.6 H Plt Count 106 L Seg Neutrophils % 37.9 L Lymphocytes % 45.8 H Absolute Neutrophils 1.3 L Chloride 109 H Est GFR (Non-Af Amer) 58 L Total Bilirubin 1.8 H Direct Bilirubin 0.5 H NT-Pro-B Natriuret Pep 985 H Crossmatch 09/16/17 04:30 WBC RBC Hgb Hct MCV MCH MCHC RDW Plt Count Seg Neutrophils % Lymphocytes % Absolute Neutrophils Chloride Est GFR (Non-Af Amer) Total Bilirubin Direct Bilirubin NT-Pro-B Natriuret Pep Crossmatch See Detail Discharge <CHRISTA VYAS - Last Filed: 09/16/17 08:05> <AJAY DYSON - Last Filed: 09/16/17 16:12> - Discharge Clinical Impression: Symptomatic anemia, Bloody stools, Dyspnea on exertion Condition: Stable Disposition: HOME, SELF-CARE Instructions: Anemia ([facility]), Positive Test for Blood in Stool ([facility]) Additional Instructions: Maintain adequate fluid and food intake tylenol if needed Take home medications Take iron daily with stool softener Monitor for any worsening symptoms Make sure you are staying hydrated enough to urinate and have normal BM's Recheck with your PCM in 2-3 days You will need an outpatient endoscopy/colonoscopy performed Return to the ED with any worsening symptoms and/or development of fever, headache, chest pain, palpitations, syncope, shortness of breath, trouble breathing, abdominal pain, n/v/d, worsening blood in stool or blood in urine, weakness, or other worsening symptoms that are concerning to you. Referrals: GLENYS ARCOS MD [Primary Care Provider] - 09/19/17 VISHNU VILLANUEVA MD [ACTIVE STAFF] - Follow up as needed ALANNAH CARL MD [ACTIVE STAFF] - Follow up as needed
[2017-09-16 01:11] LABS: ABSOLUTE BASOPHILS # (AUTO) 0.1 10^3/uL (0.0-0.2); ABSOLUTE EOSINOPHILS # (AUTO) 0.1 10^3/uL (0.0-0.6); ABSOLUTE LYMPHOCYTES (AUTO) 1.5 10^3/uL (0.5-4.7); ABSOLUTE MONOCYTES (AUTO) 0.4 10^3/uL (0.1-1.4); ABSOLUTE NEUT (AUTO) 1.3 10^3/uL (1.7-8.2); BASOPHILS % (AUTO) 1.6 % (0-2); EOSINOPHILS % (AUTO) 3.5 % (0-6); HEMATOCRIT 25.6 % (36.0-47.0); LYMPHOCYTES % (AUTO) 45.8 % (13-45); MEAN CORPUSCULAR HEMOGLOBIN 21.6 pg (27.0-33.4); MEAN CORPUSCULAR HGB CONC 31.2 g/dL (32.0-36.0); MEAN CORPUSCULAR VOLUME 69 fl (80-97); MONOCYTES % (AUTO) 11.2 % (3-13); PLATELET COUNT 106 10^3/uL (150-450); RED BLOOD COUNT 3.69 10^6/uL (3.72-5.28); RED CELL DISTRIBUTION WIDTH 17.6 % (11.5-14.0); SEGMENTED NEUTROPHILS % (AUTO) 37.9 % (42-78); TOTAL CELLS COUNTED % (AUTO) 100 %; WHITE BLOOD COUNT 3.3 10^3/uL (4.0-10.5)
[2017-09-16 02:06] LABS: GLUCOSE 87 mg/dL (75-110); POTASSIUM 4.1 mmol/L (3.6-5.0); TOTAL PROTEIN 7.6 g/dL (6.3-8.2)
[2017-09-16 02:08] LABS: ALANINE AMINOTRANSFERASE 23 U/L (9-52); ALKALINE PHOSPHATASE 89 U/L (38-126); ANION GAP 8 (5-19); ASPARTATE AMINO TRANSFERASE 24 U/L (14-36); BILIRUBIN,DIRECT 0.5 mg/dL (0.0-0.4); BILIRUBIN,TOTAL 1.8 mg/dL (0.2-1.3); BLOOD UREA NITROGEN 15 mg/dL (7-20); CALCIUM 9.6 mg/dL (8.4-10.2); CARBON DIOXIDE 25 mmol/L (22-30); CHLORIDE 109 mmol/L (98-107); CREATINE KINASE 66 U/L (30-135); SODIUM 142.4 mmol/L (137-145)
[2017-09-16 02:10] LABS: CREATINE KINASE MB < 0.22 ng/mL (<4.55); NT PRO BNP 985 pg/mL (5-900); TROPONIN I < 0.012 ng/mL
--- NOTE | 2017-09-16 07:40 | EKG REPORT ---
SEVERITY:- ABNORMAL ECG - ATRIAL FIBRILLATION INCOMPLETE RIGHT BUNDLE BRANCH BLOCK : Confirmed by: Kayla Martino MD 16-Sep-2017 07:40:16
[2017-09-16] MEDS ORDERED: NORMAL SALINE 250 ML IV PRN (08:33)
[2017-09-16] MEDS ORDERED: LORAZEPAM INJ 2 MG/1 ML VIAL IV ONE (14:19)
[2017-09-16 15:33] VITALS: BP 110/77
== END 2017-09-16 16:55 | disposition home or self-care (01) ==
LOC: ER 18:36
DX: R06.02 Shortness of breath (principal); K92.1 Melena; D64.9 Anemia, unspecified; I50.9 Heart failure, unspecified; I48.91 Unspecified atrial fibrillation; Z95.810 Presence of automatic (implantable) cardiac defibrillator; Z88.0 Allergy status to penicillin
CPT/HCPCS: 93005; 99285; 96374; 86900; 86901; 36415; 82553; 36430; 86850; 82550; 83735; 85025; 82272; 80053; 84484; 86920; 83880; 71046; 93010; P9016; J2060

== ENCOUNTER → 2017-09-19 | Outpatient (CLI) | payer MEDICARE, MEDICAID ==
[2017-09-19 17:54] LABS: IRON(TIBC) 21.8 ug/dL (37-170)
[2017-09-19 18:30] LABS: FERRITIN 9.22 ng/mL (11.1-264.0)
== END ==
LOC: OD 16:27
PROVIDERS: ATTEND Internal Medicine Gastroenterology
DX: D50.0 Iron deficiency anemia secondary to blood loss (chronic) (principal)
CPT/HCPCS: 36415; 82728; 83540; 83550

== ENCOUNTER 2017-10-11 07:24 | Emergency (ER) | payer MEDICARE, MEDICAID ==
--- NOTE | 2017-10-11 08:12 | ER Document Report ---
ED General - General Chief Complaint: General Weakness Stated Complaint: SHORTNESS OF BREATH Time Seen by Provider: 10/11/17 07:58 Mode of Arrival: Ambulatory Information source: Patient, Parent TRAVEL OUTSIDE OF THE [place] IN LAST 30 DAYS: No - HPI Notes: 49-year-old female with a history of stage IV CHF, hypertension, leaky valve, anemia within a cardiac arrest in 2011 presents today with complaints of lightheadedness, hemoptysis with some shortness of breath that started this morning. Does not take her medications this morning. Patient does take Xarelto. Patient had a recent colonoscopy and endoscopy that was negative by Dr. Baker. Patient sees Dr. Anderson in [place] putting her defibrillator and Dr. Klaudia live who is going to be repairing a leaky valve in 3-4 weeks. Patient reports she has been having a slight year her eye over the last week. Eating and drinking without issues. Denies any recent trauma. Patient did not take her Lasix this morning. Denies fevers, chills, chest pain, shortness of breath, nausea, vomiting, diarrhea, abdominal pain, hematuria,blurred vision, double vision, loss of vision, syncope, headaches, neck pain, weakness, bowel or bladder dysfunction, saddle anesthesia, numbness/tingling/muscle paralysis/ weakness or rash. - Related Data Allergies/Adverse Reactions: Penicillins Allergy (Verified 10/11/17 07:27) headaches/dizziness Past Medical History - General Information source: Patient, Relative - Social History Smoking Status: Never Smoker Family History: Reviewed & Not Pertinent - Past Medical History Cardiac Medical History: Reports: Hx Congestive Heart Failure, Hx Heart Attack, Hx Hypercholesterolemia, Hx Hypertension Denies: Hx Atrial Fibrillation, Hx Coronary Artery Disease - cath 2011, Hx Peripheral Vascular Disease, Hx Pulmonary Embolism, Hx Heart Murmur Pulmonary Medical History: Reports: Hx Pneumonia Denies: Hx Asthma, Hx Bronchitis, Hx COPD, Hx Respiratory Failure, Hx Sleep Apnea, Hx Tuberculosis Neurological Medical History: Denies: Hx Cerebrovascular Accident, Hx Seizures Endocrine Medical History: Reports: Hx Hyperthyroidism. Denies: Hx Graves' Disease, Hx Hypothyroidism Renal/ Medical History: Denies: Hx End Stage Renal Disease, Hx Kidney Stones, Hx Ovarian Cysts, Hx Peritoneal Dialysis, Hx Pelvic Inflammatory Disease Malignancy Medical History: Denies: Hx Breast Cancer, Hx Cervical Cancer, Hx Leukemia, Hx Lung Cancer, Hx Ovarian Cancer GI Medical History: Reports: Hx Gastroesophageal Reflux Disease. Denies: Hx Crohn's Disease, Hx Hiatal Hernia, Hx Irritable Bowel, Hx Liver Failure, Hx Pancreatitis, Hx Ulcer Musculoskeltal Medical History: Reports Hx Arthritis - osteoporosis ,RLS, Denies Hx Fibromyalgia, Denies Hx Multiple Sclerosis, Denies Hx Muscular Dystrophy Psychiatric Medical History: Denies: Hx Bipolar Disorder, Hx Dementia, Hx Depression, Hx Post Traumatic Stress Disorder, Hx Schizophrenia Traumatic Medical History: Denies: Hx Fractures Infectious Medical History: Denies: Hx HIV Past Surgical History: Reports: Hx Cardiac Surgery - defibrilator 2009, Hx Cholecystectomy, Hx Pacemaker. Denies: Hx Appendectomy, Hx Bowel Surgery, Hx Section, Hx Colostomy, Hx Coronary Artery Bypass Graft, Hx Gastric Bypass Surgery, Hx Herniorrhaphy, Hx Hysterectomy, Hx Mastectomy, Hx Tonsillectomy, Hx Tubal Ligation - Immunizations Immunizations up to date: Yes Hx Diphtheria, Pertussis, Tetanus Vaccination: No Hx Pneumococcal Vaccination: 08/22/12 Review of Systems - Review of Systems Constitutional: No symptoms reported EENT: No symptoms reported Cardiovascular: See HPI Respiratory: See HPI Gastrointestinal: No symptoms reported Genitourinary: No symptoms reported Female Genitourinary: No symptoms reported Musculoskeletal: No symptoms reported Skin: No symptoms reported Hematologic/Lymphatic: No symptoms reported Neurological/Psychological: No symptoms reported Physical Exam - Vital signs Vitals: Temp Pulse Resp BP Pulse Ox 98.0 F 53 L 16 130/80 H 100 10/11/17 07:32 10/11/17 07:32 10/11/17 07:32 10/11/17 07:32 10/11/17 07:32 - Notes Notes: PHYSICAL EXAMINATION: GENERAL: Well-appearing, well-nourished and in no acute distress. HEAD: Atraumatic, normocephalic. EYES: Pupils equal round and reactive to light, extraocular movements intact, conjunctiva are normal. ENT: Nares patent, oropharynx clear without exudates. Moist mucous membranes. NECK: Normal range of motion, supple without lymphadenopathy LUNGS: Breath sounds clear to auscultation bilaterally and equal. No wheezes rales or rhonchi. HEART: Regular rate and rhythm without murmurs ABDOMEN: Soft, nontender, nondistended abdomen. No guarding, no rebound. No masses appreciated. Female : deferred Musculoskeletal: Normal range of motion, no pitting or edema. No cyanosis. NEUROLOGICAL: Cranial nerves grossly intact. Normal speech, normal gait. Normal sensory, motor exams PSYCH: Normal mood, normal affect. SKIN: Warm, Dry, normal turgor, no rashes or lesions noted. Course - Re-evaluation Re-evalutation: Laboratory findings unremarkable, cardiac enzymes unremarkable. Patient has a white blood cell count of 3.1 which trends with majority of her visits to the ER. Chest x-ray negative for any acute findings. Renal and liver functions unremarkable. Electrolytes within normal limits. atient's BNP 825, unremarkable liver enzymes. Cardiac enzymes negative. White blood cell stable at 3.1. She is stable, vitals are stable CT abdomen pelvis and CTA show the patient had cardiomegaly with enlarged right heart and prominent azygous veins and inferior vena cava worrisome for right heart failure. Small amount of free fluid intra-abdominal pelvic right side, nonspecific. CT showed no evidence of bowel obstruction urinary outflow obstruction. No acute pulmonary infiltrates. Patient does show to have a UTI on her urinalysis. Discussed these findings with patient, daughter and patient stated that she has had issues with her liver in the past with some "fluid" but does not know exactly what exactly she had wrong with her, follows with her GI doctor. consulted case with Dr. Hima Tena, ER attending, at 1300 regarding pertinent radiological, laboratory and diagnostic findings. He felt that it be appropriate to discharge patient home. consulted case with Dr. Zheng, line crew supervisor, at 1330 regarding pertinent radiological, laboratory and diagnostic findings. Dr. Tena felt that it would be agreeable to have patient be seen outpatient at Dr. Reyes's office and be discharged home. An appointment made for [address] Langford. Patient informed of this appointment, agreed with plan of care. Patient advised to stay home and rest. Patient feels that she is ready to go home and does not want to stay in the ER. Patient is advised to take medications as prescribed. Patient daughter stated they would go to the appointments and agree with plan of care. Patient is discharged home. After performing a Medical Screening Examination, I estimate there is LOW risk for INTRACRANIAL HEMORRHAGE, ISCHEMIC CVA, MALIGNANT DYSRHYTHMIA, ACUTE CORONARY SYNDROME, MENINGITIS, PULMONARY EMBOLISM, or SEPSIS thus I consider the discharge disposition reasonable. I have reevaluated this patient multiple times and no significant life threatening changes are noted. The patient and I have discussed the diagnosis and risks, and we agree with discharging home with close follow-up with the understanding that symptoms and presentations can change. We also discussed returning to the Emergency Department immediately if new or worsening symptoms occur. We have discussed the symptoms which are most concerning (e.g., changing or worsening pain, weakness, vomiting, fever) that necessitate immediate return. After performing a Medical Screening Examination, I estimate there is LOW risk for RUPTURED ESOPHAGUS, PNEUMOTHORAX, PULMONARY EMBOLISM, ACUTE CORONARY SYNDROME, OR THORACIC AORTIC DISSECTION, thus I consider the discharge disposition reasonable. I have reevaluated this patient multiple times and no significant life threatening changes are noted. The patient and I have discussed the diagnosis and risks, and we agree with discharging home with close follow-up. We also discussed returning to the Emergency Department immediately if new or worsening symptoms occur. We have discussed the symptoms which are most concerning (e.g., bloody sputum, worsening pain or shortness of breath) that necessitate immediate return. - Vital Signs Vital signs: Temp Pulse Resp BP Pulse Ox 98.0 F 53 L 20 134/74 H 100 10/11/17 07:32 10/11/17 07:32 10/11/17 11:01 10/11/17 11:01 10/11/17 11:01 - Laboratory Result Diagrams: 10/11/17 09:32 10/11/17 08:14 Laboratory results interpreted by me: 10/11/17 10/11/17 10/11/17 08:14 08:14 09:32 WBC 3.1 L Hgb 9.5 L Hct 30.2 L MCV 75 L D MCH 23.6 L MCHC 31.7 L RDW 27.5 H Plt Count 129 L Abs Neuts (Manual) 1.4 L PT 30.3 H APTT 53.0 H Chloride 108 H Total Bilirubin 1.8 H ALT < 6 L Urine Protein Urine Urobilinogen Ur Leukocyte Esterase 10/11/17 09:41 WBC Hgb Hct MCV MCH MCHC RDW Plt Count Abs Neuts (Manual) PT APTT Chloride Total Bilirubin ALT Urine Protein 30 H Urine Urobilinogen 4.0 H Ur Leukocyte Esterase MODERATE H Discharge - Discharge Clinical Impression: UTI (urinary tract infection) Qualifiers: Urinary tract infection type: acute cystitis Hematuria presence: without hematuria Qualified Code(s): N30.00 - Acute cystitis without hematuria Instructions: Nitrofurantoin ([facility]), Urinary Tract Infection ([facility]) Additional Instructions: URINARY TRACT INFECTION: Your evaluation indicates that you have a urinary tract infection. This is due to germs growing in the bladder. This is a common problem. This infection usually responds quickly to antibiotics. Your antibiotic should be taken exactly as prescribed. Drink plenty of fluids -- three to four quarts a day. Occasionally, a bladder anesthetic will be prescribed to help stop the feeling of urgency until the antibiotic has a chance to clear the infection. This may cause your urine to be dark orange. Certain urine infections require a culture. If the doctor obtained a culture, the results will be back in two days. You should call to see if a change in treatment is needed. A repeat urinalysis after you finish treatment is often recommended. The physician will let you know if further testing is required. Call the doctor if you develop fever, chills, flank pain, inability to urinate, or blood in the urine. ANTIBIOTIC THERAPY: You have been given an antibiotic prescription. It's important that you take all the medication, unless instructed otherwise by your physician. Failure to complete the entire course can result in relapse of your condition. Common side effects of antibiotics include nausea, intestinal cramping, or diarrhea. Women may develop vaginal yeast infections, and babies can get yeast (thrush) in the mouth following the use of antibiotics. Contact your physician if you develop significant side effects from this medication. Allergy to this antibiotic can result in hives, wheezing, faintness, or itching. If symptoms of allergy occur, stop the medication and call the doctor. NITROFURANTOIN (MACRODANTIN, MACROBID): You have received a prescription for nitrofurantoin (Macrodantin). This antibiotic is used for urinary tract infections. Women who are or nursing should notify the physician before taking this medicine. If you have ever had a problem caused by this medication in the past, be sure the physician is aware of it. Common side effects of this medicine include nausea, vomiting, or decreased appetite. Notify your physician if these side effects become severe. Immediately stop this medicine and call the physician if you develop cough , shortness of breath, chest pain, weakness, jaundice (yellow color of the skin and whites of the eyes), or a skin rash. FOLLOW-UP CARE: If you have been referred to a physician for follow-up care, call the physician s office for an appointment as you were instructed or within the next two days. If you experience worsening or a significant change in your symptoms, notify the physician immediately or return to the Emergency Department at any time for re-evaluation. Follow-up with Dr. Langford tomorrow at 9:15 in the morning. This appointment was made for you for follow-up for the ER. Return to the emergency room or call 911 as soon as possible if symptoms become worse. Stay with your daughter nikko. Take antibiotic as directed, increase oral hydration. Take your prescribed medications as directed. Return immediately for any new or worsening symptoms. Follow up with primary care provider, call tomorrow to make followup appointment. Prescriptions: Nitrofurantoin Monohyd/M-Cryst [Macrobid 100 mg Capsule] 100 mg PO BID #14 capsule Referrals: GLENYS ARCOS MD [Primary Care Provider] - Follow up as needed ANDREW WETZEL MD [ACTIVE STAFF] - Follow up tomorrow (09:15 am appt made for you)
[2017-10-11 08:34] LABS: INTERNATIONAL RATION (INR) 2.73; PROTHROMBIN TIME 30.3 SEC (11.4-15.4)
[2017-10-11 08:46] LABS: ALANINE AMINOTRANSFERASE < 6 U/L (9-52); ALBUMIN 4.2 g/dL (3.5-5.0); ALKALINE PHOSPHATASE 83 U/L (38-126); ANION GAP 10 (5-19); ASPARTATE AMINO TRANSFERASE 30 U/L (14-36); BILIRUBIN,DIRECT 0.4 mg/dL (0.0-0.4); BILIRUBIN,TOTAL 1.8 mg/dL (0.2-1.3); BLOOD UREA NITROGEN 13 mg/dL (7-20); CALCIUM 9.4 mg/dL (8.4-10.2); CARBON DIOXIDE 24 mmol/L (22-30); CHLORIDE 108 mmol/L (98-107); CREATINE KINASE 67 U/L (30-135); GLUCOSE 89 mg/dL (75-110); POTASSIUM 4.4 mmol/L (3.6-5.0); SODIUM 141.9 mmol/L (137-145); TOTAL PROTEIN 7.4 g/dL (6.3-8.2)
--- NOTE | 2017-10-11 08:56 | RADIOLOGY REPORT (SQ) ---
EXAM DESCRIPTION: CHEST SINGLE VIEW COMPLETED DATE/TIME: 10/11/2017 8:46 am REASON FOR STUDY: SOB with hemoptysis COMPARISON: Chest films 07/21/2016, 08/04/2017, 08/16/2017, 09/15/2017 EXAM PARAMETERS: NUMBER OF VIEWS: One view. TECHNIQUE: Single frontal radiographic view of the chest acquired. RADIATION DOSE: NA LIMITATIONS: None. FINDINGS: LUNGS AND PLEURA: No opacities, masses or pneumothorax. No pleural effusion. MEDIASTINUM AND HILAR STRUCTURES: No masses. Contour normal. HEART AND VASCULAR STRUCTURES: Stable moderate cardiomegaly BONES: No acute findings. HARDWARE: Unchanged left-sided pacemaker OTHER: No other significant finding. IMPRESSION: NO ACUTE RADIOGRAPHIC FINDING IN THE CHEST. TECHNICAL DOCUMENTATION: JOB ID: [id number] [employer]- All Rights Reserved
[2017-10-11 08:58] LABS: TROPONIN I 0.018 ng/mL
[2017-10-11 10:00] LABS: APPEARANCE,URINE SLIGHTLY-CLOUDY; BILIRUBIN,URINE NEGATIVE (NEGATIVE); COLOR,URINE YELLOW; GLUCOSE, URINE NEGATIVE (NEGATIVE); KETONES,URINE NEGATIVE (NEGATIVE); LEUKOCYTE ESTERASE,URINE MODERATE (NEGATIVE); NITRITE,URINE NEGATIVE (NEGATIVE); PROTEIN,URINE 30 mg/dL (NEGATIVE)
[2017-10-11 10:09] LABS: HEMATOCRIT 30.2 % (36.0-47.0); HEMOGLOBIN 9.5 g/dL (12.0-15.5); MEAN CORPUSCULAR HEMOGLOBIN 23.6 pg (27.0-33.4); MEAN CORPUSCULAR HGB CONC 31.7 g/dL (32.0-36.0); RED BLOOD COUNT 4.05 10^6/uL (3.72-5.28); RED CELL DISTRIBUTION WIDTH 27.5 % (11.5-14.0); WHITE BLOOD COUNT 3.1 10^3/uL (4.0-10.5)
[2017-10-11 10:10] LABS: MEAN CORPUSCULAR VOLUME 75 fl (80-97); PLATELET COUNT 129 10^3/uL (150-450)
[2017-10-11 10:13] LABS: ABSOLUTE LYMPHOCYTES# (MANUAL) 1.3 10^3/uL (0.5-4.7); ABSOLUTE MONOCYTES # (MANUAL) 0.2 10^3/uL (0.1-1.4); ABSOLUTE NEUTROPHILS# (MANUAL) 1.4 10^3/uL (1.7-8.2); BASOPHILS % (MANUAL) 2 % (0-2); EOSINOPHILS % (MANUAL) 4 % (0-6); LYMPHOCYTES % (MANUAL) 42 % (13-45); MONOCYTES % (MANUAL) 7 % (3-13); SEGMENTED NEUTROPHILS % (MAN) 44 % (42-78); TOTAL CELLS COUNTED 100
[2017-10-11 10:14] LABS: ANISOCYTOSIS 3+; HYPOCHROMASIA 2+; POIKILOCYTOSIS 3+
[2017-10-11 10:15] LABS: ACANTHOCYTES SLIGHT; BURR CELLS SLIGHT; OVALOCYTES 2+; PLATELET CLUMPS PRESENT; PLATELET COMMENT DECREASED; PLATELET LARGE PRESENT; SCHISTOCYTES SLIGHT; TEAR DROP CELLS SLIGHT; TOXIC GRANULATION SLIGHT
--- NOTE | 2017-10-11 12:06 | RADIOLOGY REPORT (SQ) ---
EXAM DESCRIPTION: CT CHEST WITH; CT ABD/PELVIS WITH IV ORAL COMPLETED DATE/TIME: 10/11/2017 11:37 am REASON FOR STUDY: SOB with hemoptysis ; LUQ and RUQ abd pain, hemoptysis COMPARISON: CT angio chest 04/21/2015, 08/07/2011 CONTRAST TYPE AND DOSE: contrast/concentration: Isovue 370.00 mg/ml; Total Contrast Delivered: 100.0 ml; Total Saline Delivered: 55.6 ml RENAL FUNCTION: Creatinine 0.98 TECHNIQUE: CT scan of the chest performed using helical scanning technique with dynamic intravenous contrast injection. Images reviewed with lung, soft tissue and bone windows. Reconstructed coronal a nd sagittal MPR images reviewed. All images stored on PACS. CT scan of the abdomen and pelvis performed with intravenous and with oral contrastusing helical scan bharathi technique with dynamic intravenous contrast injection. Images reviewed with lung, soft tissue a nd bone windows. Reconstructed coronal and sagittal MPR images reviewed. Delayed images for evaluat ion of the urinary system also acquired and evaluated. All images stored on PACS. All CT scanners at this facility use dose modulation, iterative reconstruction, and/or weight based d osing when appropriate to reduce radiation dose to as low as reasonably achievable (ALARA). [facility]: Dose Right [facility]: CareDose [facility]: Dose Right [facility]: Teradose 4D [facility]: [employer] RADIATION DOSE: CT Rad equipment meets quality standard of care and radiation dose reduction techniq ues were employed. CTDIvol: 20.6 - 21.1 mGy. DLP: 2644 mGy-cm. . LIMITATIONS: None. FINDINGS: CHEST: LUNGS AND PLEURA: No opacities, nodules, masses. No pneumothorax. No effusions. HILAR AND MEDIASTINAL STRUCTURES: No identified masses or abnormal nodes. HEART AND VASCULAR STRUCTURES: No aneurysm or dissection. No central pulmonary emboli. No pericardi al effusion. There is moderate to marked cardiomegaly and dilatation of the right atrium and right v entricle. Dilated azygos vein and IVC worrisome for right heart failure. Pacemaker present. HARDWARE: None. THYROID AND OTHER SOFT TISSUES: 1 cm nodule left lower pole thyroid gland BONES: No significant finding. OTHER: No other significant finding. ABDOMEN AND PELVIS: LIVER: Normal size. Stable cyst along the falciform ligament as compared to 2010, 3 cm in greatest d iameter. SPLEEN: 13 cm in length. No focal lesions. PANCREAS: No masses. No significant calcifications. No adjacent inflammation or peripancreatic fluid collections. Pancreatic duct not dilated. GALLBLADDER: Surgically absent ADRENAL GLANDS: No significant masses or asymmetry. RIGHT KIDNEY AND URETER: No solid masses. No significant calcification. No hydronephrosis or hydroure ter. LEFT KIDNEY AND URETER: No solid masses. No significant calcification. No hydronephrosis or hydrouret er. AORTA AND VESSELS: No aneurysm. No dissection. Renal arteries, SMA, celiac without stenosis. RETROPERITONEUM: No retroperitoneal adenopathy, hemorrhage or masses. BOWEL AND PERITONEAL CAVITY: Oral contrast throughout the gastrointestinal tract without evidence of bowel obstruction. There is a small amount of free intraperitoneal fluid in the right subphrenic spa ce, right pericolic gutters, right lower quadrant, and pelvic cul-de-sac, nonspecific. APPENDIX: Normal. ABDOMINAL WALL: Tiny fat containing umbilical hernia PELVIS: Small amount of cul-de-sac free fluid. Bladder, rectum unremarkable. Normal size female pel sabiha organs. BONES: No significant or acute findings. OTHER: No other significant finding. IMPRESSION: Cardiomegaly with enlarged right heart and prominent azygous veins and inferior vena cav a worrisome for right heart failure. Small amount of free fluid intra-abdominal and pelvic right side. Nonspecific. No CT evidence of bowel obstruction or urinary outflow obstruction. No acute pulmonary infiltrates. NORMAL CT OF THE ABDOMEN AND PELVIS WITH ORAL AND INTRAVENOUS CONTRAST. TECHNICAL DOCUMENTATION: JOB ID: [id number] Quality ID # [id number]: Final reports with documentation of one or more dose reduction techniques (e.g., Au tomated exposure control, adjustment of the mA and/or kV according to patient size, use of iterative reconstruction technique) 2010 [employer]- All Rights Reserved
--- NOTE | 2017-10-11 12:29 | EKG REPORT ---
SEVERITY:- ABNORMAL ECG - BASELINE A FIB WITH VENTRICULAR-PACED COMPLEXES ON DEMAND INCOMPLETE RIGHT BUNDLE BRANCH BLOCK NONSPECIFIC ST-T CHANGES- INFERIOR LEADS : Confirmed by: Alexandro Qureshi MD 11-Oct-2017 12:28:50
[2017-10-11 21:07] VITALS: BP 137/69
== END 2017-10-11 14:03 | disposition home or self-care (01) ==
LOC: ER 07:24
DX: N30.00 Acute cystitis without hematuria (principal); R53.1 Weakness; R06.02 Shortness of breath; I50.9 Heart failure, unspecified; I10 Essential (primary) hypertension; R42 Dizziness and giddiness; R04.2 Hemoptysis; Z79.01 Long term (current) use of anticoagulants
CPT/HCPCS: 36415; 71045; 71260; 74177; 80053; 81001; 82272; 82550; 83880; 84484; 85025; 85610; 85730; 87086; 93005; 93010; 99285

== ENCOUNTER → 2017-11-07 | Outpatient (CLI) | payer MEDICARE, MEDICAID ==
[2017-11-07 17:02] LABS: HEMATOCRIT 32.6 % (36.0-47.0); HEMOGLOBIN 10.4 g/dL (12.0-15.5); MEAN CORPUSCULAR HEMOGLOBIN 25.4 pg (27.0-33.4); MEAN CORPUSCULAR HGB CONC 31.8 g/dL (32.0-36.0); PLATELET COUNT 116 10^3/uL (150-450); RED BLOOD COUNT 4.07 10^6/uL (3.72-5.28); WHITE BLOOD COUNT 2.9 10^3/uL (4.0-10.5)
[2017-11-07 17:06] LABS: MEAN CORPUSCULAR VOLUME 80 fl (80-97)
[2017-11-07 17:38] LABS: ABSOLUTE LYMPHOCYTES# (MANUAL) 1.3 10^3/uL (0.5-4.7); ABSOLUTE MONOCYTES # (MANUAL) 0.4 10^3/uL (0.1-1.4); ANISOCYTOSIS 3+; BASOPHILS % (MANUAL) 1 % (0-2); EOSINOPHILS % (MANUAL) 6 % (0-6); HYPOCHROMASIA SLIGHT; LYMPHOCYTES % (MANUAL) 43 % (13-45); MONOCYTES % (MANUAL) 13 % (3-13); OVALOCYTES 2+; PLATELET COMMENT DECREASED; PLATELET LARGE PRESENT; POIKILOCYTOSIS 2+; ROULEAUX SLIGHT; SCHISTOCYTES SLIGHT; SEGMENTED NEUTROPHILS % (MAN) 36 % (42-78); TOTAL CELLS COUNTED 100
== END ==
LOC: OD 08:29
PROVIDERS: ATTEND Internal Medicine
DX: R07.2 Precordial pain (principal); I48.1 Persistent atrial fibrillation; I47.2 Ventricular tachycardia; E78.4 Other hyperlipidemia; I10 Essential (primary) hypertension; I34.1 Nonrheumatic mitral (valve) prolapse; I36.1 Nonrheumatic tricuspid (valve) insufficiency; I42.8 Other cardiomyopathies; I50.22 Chronic systolic (congestive) heart failure; I49.01 Ventricular fibrillation; M94.0 Chondrocostal junction syndrome [Tietze]; Z95.810 Presence of automatic (implantable) cardiac defibrillator; Z79.899 Other long term (current) drug therapy
CPT/HCPCS: 36415; 85025

== ENCOUNTER → 2017-12-08 | Outpatient (CLI) | payer MEDICARE, MEDICAID ==
[2017-12-08 10:38] LABS: ABSOLUTE EOSINOPHILS # (AUTO) 0.1 10^3/uL (0.0-0.6); ABSOLUTE LYMPHOCYTES (AUTO) 1.2 10^3/uL (0.5-4.7); ABSOLUTE MONOCYTES (AUTO) 0.2 10^3/uL (0.1-1.4); BASOPHILS % (AUTO) 1.1 % (0-2); EOSINOPHILS % (AUTO) 3.8 % (0-6); HEMATOCRIT 33.1 % (36.0-47.0); HEMOGLOBIN 10.6 g/dL (12.0-15.5); MEAN CORPUSCULAR HEMOGLOBIN 26.9 pg (27.0-33.4); MEAN CORPUSCULAR HGB CONC 32.1 g/dL (32.0-36.0); MEAN CORPUSCULAR VOLUME 84 fl (80-97); MONOCYTES % (AUTO) 9.5 % (3-13); PLATELET COUNT 110 10^3/uL (150-450); RED BLOOD COUNT 3.94 10^6/uL (3.72-5.28); RED CELL DISTRIBUTION WIDTH 20.7 % (11.5-14.0); SEGMENTED NEUTROPHILS % (AUTO) 39.6 % (42-78); TOTAL CELLS COUNTED % (AUTO) 100 %; WHITE BLOOD COUNT 2.6 10^3/uL (4.0-10.5)
[2017-12-08 10:51] LABS: ALANINE AMINOTRANSFERASE 20 U/L (9-52); ALBUMIN 3.9 g/dL (3.5-5.0); ALKALINE PHOSPHATASE 97 U/L (38-126); ANION GAP 9 (5-19); ASPARTATE AMINO TRANSFERASE 22 U/L (14-36); BILIRUBIN,DIRECT 0.5 mg/dL (0.0-0.4); BILIRUBIN,TOTAL 1.6 mg/dL (0.2-1.3); BLOOD UREA NITROGEN 13 mg/dL (7-20); CALCIUM 9.7 mg/dL (8.4-10.2); CARBON DIOXIDE 28 mmol/L (22-30); CHLORIDE 109 mmol/L (98-107); GLUCOSE 87 mg/dL (75-110); POTASSIUM 4.5 mmol/L (3.6-5.0); SODIUM 145.8 mmol/L (137-145); TOTAL PROTEIN 7.4 g/dL (6.3-8.2)
[2017-12-08 11:18] LABS: ANISOCYTOSIS 2+; OVALOCYTES 2+; PLATELET COMMENT DECREASED; POIKILOCYTOSIS 2+; SCHISTOCYTES SLIGHT; TEAR DROP CELLS SLIGHT
== END ==
LOC: OD 09:45
PROVIDERS: ATTEND Internal Medicine
DX: I48.1 Persistent atrial fibrillation (principal); I27.20 Pulmonary hypertension, unspecified; E78.4 Other hyperlipidemia; I10 Essential (primary) hypertension; I34.1 Nonrheumatic mitral (valve) prolapse; I36.1 Nonrheumatic tricuspid (valve) insufficiency; I42.8 Other cardiomyopathies; I49.01 Ventricular fibrillation; I50.22 Chronic systolic (congestive) heart failure; M94.0 Chondrocostal junction syndrome [Tietze]; R00.0 Tachycardia, unspecified; Z95.810 Presence of automatic (implantable) cardiac defibrillator; Z79.899 Other long term (current) drug therapy
CPT/HCPCS: 36415; 80053; 85025

== ENCOUNTER 2017-12-31 22:41 | Emergency (ER) | payer MEDICARE, MEDICAID ==
--- NOTE | 2017-12-31 22:58 | ER Document Report ---
ED General - General Chief Complaint: Chest Pain Stated Complaint: CHEST PAIN Time Seen by Provider: 12/31/17 22:55 Notes: Patient is a 57-year-old female presents with complaint of chest pain. She says it is a very sharp intermittent pain that comes quickly and then goes away. This on the left side. It is worse with movement. She denies any fevers. She does have a history of valvular abnormality for which she is supposed to see a storage battery inspector and tester this coming week to schedule surgery. She says next week she is supposed to have a heart catheter just to clear her for surgery. Last heart cath was between 1-2 years ago and was normal. No history of stents. She denies any recent traumas or injuries. She denies any difficulty breathing. She has no vomiting. No recent fevers or infections. No other complaints at this time. She does have an AICD due to history of cardiomyopathy. TRAVEL OUTSIDE OF THE [place] IN LAST 30 DAYS: No - Related Data Allergies/Adverse Reactions: Penicillins Allergy (Verified 12/31/17 22:41) headaches/dizziness Past Medical History - Social History Smoking Status: Unknown if Ever Smoked Frequency of alcohol use: None Drug Abuse: None Family History: Reviewed & Not Pertinent - Past Medical History Cardiac Medical History: Reports: Hx Congestive Heart Failure, Hx Heart Attack, Hx Hypercholesterolemia, Hx Hypertension Denies: Hx Atrial Fibrillation, Hx Coronary Artery Disease - cath 2011, Hx Peripheral Vascular Disease, Hx Pulmonary Embolism, Hx Heart Murmur Pulmonary Medical History: Reports: Hx Pneumonia Denies: Hx Asthma, Hx Bronchitis, Hx COPD, Hx Respiratory Failure, Hx Sleep Apnea, Hx Tuberculosis Neurological Medical History: Denies: Hx Cerebrovascular Accident, Hx Seizures Endocrine Medical History: Reports: Hx Hyperthyroidism. Denies: Hx Graves' Disease, Hx Hypothyroidism Renal/ Medical History: Denies: Hx End Stage Renal Disease, Hx Kidney Stones, Hx Ovarian Cysts, Hx Peritoneal Dialysis, Hx Pelvic Inflammatory Disease Malignancy Medical History: Denies: Hx Breast Cancer, Hx Cervical Cancer, Hx Leukemia, Hx Lung Cancer, Hx Ovarian Cancer GI Medical History: Reports: Hx Gastroesophageal Reflux Disease. Denies: Hx Crohn's Disease, Hx Hiatal Hernia, Hx Irritable Bowel, Hx Liver Failure, Hx Pancreatitis, Hx Ulcer Musculoskeltal Medical History: Reports Hx Arthritis - osteoporosis ,RLS, Denies Hx Fibromyalgia, Denies Hx Multiple Sclerosis, Denies Hx Muscular Dystrophy Psychiatric Medical History: Denies: Hx Bipolar Disorder, Hx Dementia, Hx Depression, Hx Post Traumatic Stress Disorder, Hx Schizophrenia Traumatic Medical History: Denies: Hx Fractures Infectious Medical History: Denies: Hx HIV Past Surgical History: Reports: Hx Cardiac Surgery - defibrilator 2009, Hx Cholecystectomy, Hx Pacemaker. Denies: Hx Appendectomy, Hx Bowel Surgery, Hx Section, Hx Colostomy, Hx Coronary Artery Bypass Graft, Hx Gastric Bypass Surgery, Hx Herniorrhaphy, Hx Hysterectomy, Hx Mastectomy, Hx Tonsillectomy, Hx Tubal Ligation - Immunizations Immunizations up to date: Yes Hx Diphtheria, Pertussis, Tetanus Vaccination: No Hx Pneumococcal Vaccination: 08/22/12 Review of Systems - Review of Systems Notes: My Normal Review Basic REVIEW OF SYSTEMS: CONSTITUTIONAL : Denies fever, chills, or sweats. Denies recent illness. EENT: Denies eye, ear, throat, or mouth pain or symptoms. Denies nasal or sinus congestion. CARDIOVASCULAR: Intermittent sharp chest pain RESPIRATORY: Denies cough, cold, or chest congestion. Denies shortness of breath, difficulty breathing, or wheezing. GASTROINTESTINAL: Denies abdominal pain. Denies nausea, vomiting, or diarrhea MUSCULOSKELETAL: Denies neck or back pain or joint pain or swelling. SKIN: Denies rash or skin lesions. NEUROLOGICAL: Denies altered mental status or loss of consciousness. Denies headache. Denies weakness or paralysis or loss of use of either side. Denies problems with gait or speech. Denies sensory or motor loss. ALL OTHER SYSTEMS REVIEWED AND NEGATIVE. Physical Exam - Vital signs Vitals: Resp BP Pulse Ox 21 H 129/84 H 100 12/31/17 23:02 12/31/17 23:02 12/31/17 23:02 - Notes Notes: General Appearance: Well nourished, alert, cooperative, no acute distress, mild obvious discomfort. Vitals: reviewed, See vital signs table. Head: no swelling or tenderness to the head Eyes: PERRL, EOMI, Conjuctiva clear Mouth: No decreasd moisture Swallow: Patient's left anterior chest wall is very tender to palpation. She has pinpoint tenderness just left of the sternal border that with any pushing or pressure over this area causes severe sharp pain that she says is the same pain that she has been having. Neck: Supple, no neck tenderness, No thyromegaly Lungs: No wheezing, No rales, No rhonci, No accessory muscle use, good air exchange bilaterally. Heart: Normal rate, Regular rythm, No murmur, no rub Abdomen: Normal BS, soft, No rigidity, No abdominal tenderness, No guarding, no rebound, no abdominal masses, no organomegaly Extremities: strength 5/5 in all extremities, good pulses in all extremities, no swelling or tenderness in the extremities, 1+ bilateral lower extremity edema. Skin: warm, dry, appropriate color, no rash Neuro: speech clear, oriented x 3, normal affect, responds appropriately to questions. Course - Re-evaluation Re-evalutation: 01/01/18 05:55 Patient is feeling much improved and looks well. I feel the patient is safe to be discharged home. His have risk factors for coronary disease. She is next scheduled for heart cath next week. She had a previous heart cath 1-2 years ago which was normal. Her troponin delta troponin negative. EKG is unchanged comparison to her previous EKG. I do not suspect her chest pain today is related to coronary disease and that it is quick and sharp and intermittent and is reproducible with palpation and movement. I informed her that even though her testing today is negative that she should still have a low threshold to return to the ER if she has recurrent worsening pain, change in location of pain , difficulty breathing, or if she feels that she is worsening in any way. Patient agrees with plan and will be discharged home. Dictation of this chart was performed using voice recognition software; therefore, there may be some unintended grammatical errors. - Vital Signs Vital signs: Temp Pulse Resp BP Pulse Ox 28 H 117/84 97 01/01/18 02:01 01/01/18 02:01 01/01/18 02:01 - Laboratory Result Diagrams: 12/31/17 23:00 12/31/17 23:00 Laboratory results interpreted by me: 12/31/17 12/31/17 23:00 23:00 WBC 3.5 L Hgb 11.8 L RDW 14.7 H Plt Count 102 L Seg Neutrophils % 38.7 L Lymphocytes % 45.4 H Absolute Neutrophils 1.3 L Est GFR (Non-Af Amer) 49 L Total Bilirubin 1.6 H Direct Bilirubin 0.7 H Total Protein 8.3 H - EKG Interpretation by Me Additional EKG results interpreted by me: 12/31/17 22:56 EKG is reviewed and interpreted by me. The hand after holding an older EKG shows atrial fibrillation with a rate of [address] segment elevation. Patient has chronic mild ST segment depression in anterior septal leads with T- wave inversions which are unchanged comparison to October 11, 2017. Patient does have small T-wave inversions in leads V4 and V5. Patient has T-wave inversions in leads V4 and V5 on her EKG today. It appears that she has a same changes on her old EKG from September however there is a QRS change causing the T waves to go up right in these leads as well. I therefore looked for another previous EKG and found that the T-wave inversions are indeed old and unchanged in comparison to her previous EKG from August 16, 2017. 12/31/17 22:59 Discharge - Discharge Clinical Impression: Chest pain Qualifiers: Chest pain type: unspecified Qualified Code(s): R07.9 - Chest pain, unspecified Condition: Good Disposition: HOME, SELF-CARE Additional Instructions: The blood tests and EKG looking at your heart did not show any signs of an impending heart attack. Despite this you should still have a low threshold to return to ER if you have worsening chest pain, change in location of your chest pain, difficulty breathing, or if you feel that you are worsening in any way. Please call your heart doctor on Tuesday morning informed them that you were having some chest pain and had to come to the ER. Please follow-up closely with them this coming week. Referrals: RADHA CUEVAS MD [Primary Care Provider] - 01/02/18
[2017-12-31] MEDS ORDERED: MORPHINE SULFATE 10 MG/ML INJ IV ONE (23:12)
[2017-12-31] MEDS ORDERED: ASPIRIN 325 MG TABLET PO ONE (23:12)
[2017-12-31 23:20] LABS: ABSOLUTE EOSINOPHILS # (AUTO) 0.2 10^3/uL (0.0-0.6); ABSOLUTE LYMPHOCYTES (AUTO) 1.6 10^3/uL (0.5-4.7); ABSOLUTE MONOCYTES (AUTO) 0.3 10^3/uL (0.1-1.4); ABSOLUTE NEUT (AUTO) 1.3 10^3/uL (1.7-8.2); BASOPHILS % (AUTO) 1.1 % (0-2); HEMATOCRIT 36.6 % (36.0-47.0); HEMOGLOBIN 11.8 g/dL (12.0-15.5); LYMPHOCYTES % (AUTO) 45.4 % (13-45); MEAN CORPUSCULAR HEMOGLOBIN 27.6 pg (27.0-33.4); MEAN CORPUSCULAR HGB CONC 32.4 g/dL (32.0-36.0); MEAN CORPUSCULAR VOLUME 85 fl (80-97); MONOCYTES % (AUTO) 9.8 % (3-13); PLATELET COUNT 102 10^3/uL (150-450); RED BLOOD COUNT 4.29 10^6/uL (3.72-5.28); RED CELL DISTRIBUTION WIDTH 14.7 % (11.5-14.0); SEGMENTED NEUTROPHILS % (AUTO) 38.7 % (42-78); TOTAL CELLS COUNTED % (AUTO) 100 %; WHITE BLOOD COUNT 3.5 10^3/uL (4.0-10.5)
[2017-12-31 23:38] LABS: ALANINE AMINOTRANSFERASE 21 U/L (9-52); ALBUMIN 4.3 g/dL (3.5-5.0); ALKALINE PHOSPHATASE 93 U/L (38-126); ANION GAP 12 (5-19); ASPARTATE AMINO TRANSFERASE 24 U/L (14-36); BILIRUBIN,DIRECT 0.7 mg/dL (0.0-0.4); BILIRUBIN,TOTAL 1.6 mg/dL (0.2-1.3); BLOOD UREA NITROGEN 15 mg/dL (7-20); CALCIUM 9.6 mg/dL (8.4-10.2); CARBON DIOXIDE 26 mmol/L (22-30); CHLORIDE 106 mmol/L (98-107); GLUCOSE 92 mg/dL (75-110); SODIUM 144.3 mmol/L (137-145); TOTAL PROTEIN 8.3 g/dL (6.3-8.2)
[2017-12-31 23:43] LABS: ANISOCYTOSIS SLIGHT; OVALOCYTES 1+; PLATELET COMMENT DECREASED; POIKILOCYTOSIS 1+; SCHISTOCYTES SLIGHT; TEAR DROP CELLS SLIGHT
--- NOTE | 2018-01-01 00:05 | RADIOLOGY REPORT (SQ) ---
EXAM DESCRIPTION: XR CHEST 1 VIEW CLINICAL HISTORY: 57 years Female, chest pain COMPARISON: 2.20.18. NUMBER OF VIEWS/TECHNIQUE: 1/AP FINDINGS: Adequate lung volume, clear parenchyma, moderately enlarged cardiac silhouette, left cardiac stimulator with leads, and intact bony thorax. IMPRESSION: No acute cardiopulmonary findings.
[2018-01-01] MEDS ORDERED: ONDANSETRON HCL INJ/PF 4 MG/2 ML SDV IV ONE (01:42)
[2018-01-01 03:15] VITALS: BP 117/84
--- NOTE | 2018-01-01 07:45 | EKG REPORT ---
SEVERITY:- ABNORMAL ECG - ATRIAL FIBRILLATION AND VENTRICULAR PACING INCOMPLETE RIGHT BUNDLE BRANCH BLOCK : Confirmed by: Alexandro Qureshi MD 01-Jan-2018 07:44:37
== END 2018-01-01 02:15 | disposition home or self-care (01) ==
LOC: ER 22:41
DX: R07.9 Chest pain, unspecified (principal); I42.9 Cardiomyopathy, unspecified; I10 Essential (primary) hypertension; I25.2 Old myocardial infarction; Z87.01 Personal history of pneumonia (recurrent); Z95.810 Presence of automatic (implantable) cardiac defibrillator; Z88.0 Allergy status to penicillin
CPT/HCPCS: 93005; 99285; 96374; 96375; 36415; 83540; 85025; 80053; 84484; 71045; 93010; A9270; J2270; J2405

== ENCOUNTER 2018-05-15 22:39 | Emergency (ER) | payer MEDICARE, MEDICAID ==
--- NOTE | 2018-05-15 23:15 | ER Document Report ---
ED General - General Chief Complaint: General Weakness Stated Complaint: DEFIBRILATOR ISSUES Time Seen by Provider: 05/15/18 23:00 TRAVEL OUTSIDE OF THE [place] IN LAST 30 DAYS: No - HPI Notes: Patient is a 57-year-old female with a history of CHF, status post AICD placement, A. ananda (on Xarelto), recent catheterization and battery replacement last week who presents to the ED complaining of feeling generally weak, occasional "short windedness," and occasional left-sided chest pain. Patient states that it is primarily pain described as a vibration that has been draining on and off since last evening. Patient is not aware of anything that worsens or improves her symptoms. Patient states that it is primarily to the left lower chest area. Pain does not radiate. She is otherwise eating and drinking without any difficulties. Patient states that she is still able to ambulate with the aid of her walker without any difficulties. Patient's raise drill operator is in [facility]. She was evaluated about 2 weeks ago due to her AICD shocking her 15 times. She was admitted at that time and then transferred. Denies any headache, fever, URI, sore throat, palpitations, syncope, cough, wheeze, abdominal pain, nausea/vomiting/diarrhea, urinary retention, dysuria, hematuria, back pain, loss of control of bowel or bladder, numbness/tingling, muscle paralysis/weakness, or rash. - Related Data Allergies/Adverse Reactions: Penicillins Allergy (Verified 12/31/17 22:41) headaches/dizziness Past Medical History - Social History Smoking Status: Unknown if Ever Smoked Family History: Hypertension Patient has suicidal ideation: No Patient has homicidal ideation: No - Past Medical History Cardiac Medical History: Reports: Hx Congestive Heart Failure, Hx Heart Attack, Hx Hypercholesterolemia, Hx Hypertension Denies: Hx Atrial Fibrillation, Hx Coronary Artery Disease - cath 2011, Hx Peripheral Vascular Disease, Hx Pulmonary Embolism, Hx Heart Murmur Pulmonary Medical History: Reports: Hx Pneumonia Denies: Hx Asthma, Hx Bronchitis, Hx COPD, Hx Respiratory Failure, Hx Sleep Apnea, Hx Tuberculosis Neurological Medical History: Denies: Hx Cerebrovascular Accident, Hx Seizures Endocrine Medical History: Reports: Hx Hyperthyroidism. Denies: Hx Graves' Disease, Hx Hypothyroidism Renal/ Medical History: Denies: Hx End Stage Renal Disease, Hx Kidney Stones, Hx Ovarian Cysts, Hx Peritoneal Dialysis, Hx Pelvic Inflammatory Disease Malignancy Medical History: Denies: Hx Breast Cancer, Hx Cervical Cancer, Hx Leukemia, Hx Lung Cancer, Hx Ovarian Cancer GI Medical History: Reports: Hx Gastroesophageal Reflux Disease. Denies: Hx Crohn's Disease, Hx Hiatal Hernia, Hx Irritable Bowel, Hx Liver Failure, Hx Pancreatitis, Hx Ulcer Musculoskeletal Medical History: Reports Hx Arthritis - osteoporosis ,RLS, Denies Hx Fibromyalgia, Denies Hx Multiple Sclerosis, Denies Hx Muscular Dystrophy Psychiatric Medical History: Denies: Hx Bipolar Disorder, Hx Dementia, Hx Depression, Hx Post Traumatic Stress Disorder, Hx Schizophrenia Traumatic Medical History: Denies: Hx Fractures Infectious Medical History: Denies: Hx HIV Past Surgical History: Reports: Hx Cardiac Surgery - defibrilator 2009, Hx Cholecystectomy, Hx Internal Defibrillator, Hx Pacemaker. Denies: Hx Appendectomy, Hx Bowel Surgery, Hx Section, Hx Colostomy, Hx Coronary Artery Bypass Graft, Hx Gastric Bypass Surgery, Hx Herniorrhaphy, Hx Hysterectomy, Hx Mastectomy, Hx Tonsillectomy, Hx Tubal Ligation - Immunizations Immunizations up to date: Yes Hx Diphtheria, Pertussis, Tetanus Vaccination: No Hx Pneumococcal Vaccination: 08/22/12 Review of Systems - Review of Systems -: Yes All other systems reviewed and negative Physical Exam - Vital signs Vitals: Resp 17 05/15/18 22:58 - Notes Notes: PHYSICAL EXAMINATION: GENERAL: Well-appearing, well-nourished and in no acute distress. HEAD: Atraumatic, normocephalic. EYES: Pupils equal round and reactive to light, extraocular movements intact, sclera anicteric, conjunctiva are normal. ENT: Nares patent and without discharge. oropharynx clear without exudates. No tonsilar hypertrophy or erythema. Moist mucous membranes. NECK: Normal range of motion, supple without lymphadenopathy Chest: + tenderness to palpation of the lt pectoral area. LUNGS: Breath sounds clear to auscultation bilaterally and equal. No wheezes rales or rhonchi. HEART: Regular rate and rhythm without murmurs, rubs, gallops. ABDOMEN: Soft, nontender, nondistended abdomen. No guarding, no rebound. No masses appreciated. Normal bowel sounds present. No CVA tenderness bilaterally. Musculoskeletal: FROM to passive/active. Strength 5+/5. Della neg. No asymmetry to LE's. Extremities: No cyanosis, clubbing, or edema b/l. Peripheral pulses 2+. Capillary refill less than 3 seconds. NEUROLOGICAL: Normal speech. PSYCH: Normal mood, normal affect. SKIN: Warm, Dry, normal turgor, no rashes or lesions noted. Course - Re-evaluation Re-evalutation: 05/15/18 23:17 Patient had a recent battery exchange and catheterization performed about a week ago at [facility] per patient. Patient states that she currently does not feel the vibration in the left side of her chest, but does continue to have mild weakness per patient. We will obtain labs and request interrogation by [facility]. 05/15/18 23:43 Spoke with the life assurance representative: he states that their machines will only vibrate once then wait for 12 hours and do it again to signal something going on. He believe that what she is describing, their machines do not do. Pt may be having fluttering or muscle spasming. He recommends f/u with her raise drill operator as well. We will continue with labs and imaging and re-evaluate. 05/16/18 03:17 Patient is an afebrile, well-hydrated 57-year-old female who presents to the ED with chest wall pain/atypical chest pain. Vitals are acceptable without any significant tachycardia, tachypnea, or hypoxia. PE is otherwise unremarkable aside from the reproducible chest wall tenderness. Patient is nontoxic- appearing and is tolerating p.o. without any difficulties. Pt is currently asymptomatic. CBC, CMP, EKG/cardiac enzymes 2, chest x-ray are all unremarkable for any acute pathology. BNP acceptable and near baseline. Pt does not want to stay for chest pain obs. Risk/benefit reviewed. Patient does not have any chest pain, dyspnea, or shortness of breath currently. Patient's presentation and symptomatology creates low suspicion for ACS, PE, pneumothorax , pericarditis, dissection, respiratory compromise, severe dehydration, sepsis, meningitis, or other systemic emergent condition at this time. Patient is aware that this condition can change from initial presentation and she needs to monitor symptoms closely and seek medical attention for any acute changes. Pt is feeling better and would like to go home. Recommend conservative measures for symptoms. Recheck with your PCM in 1-2 days. Consider consult with Cardiology. Return to the ED with any worsening/concerning symptoms otherwise as reviewed in discharge. Patient is in agreement. - Vital Signs Vital signs: Temp Pulse Resp BP Pulse Ox 20 101/61 100 05/16/18 01:31 05/16/18 01:31 05/16/18 01:31 - Laboratory Result Diagrams: 05/15/18 23:50 05/15/18 23:50 Laboratory results interpreted by me: 05/15/18 05/15/18 05/15/18 23:50 23:50 23:50 WBC 3.5 L Hgb 10.5 L Hct 32.5 L RDW 15.7 H PT 27.6 H NT-Pro-B Natriuret Pep 1310 H Discharge - Discharge Clinical Impression: Chest wall pain Chest pain Qualifiers: Chest pain type: unspecified Qualified Code(s): R07.9 - Chest pain, unspecified Condition: Stable Disposition: HOME, SELF-CARE Instructions: Chest Wall Pain ([facility]), Chest Pain of Unclear Cause ([facility]) Additional Instructions: Maintain adequate fluid and food intake Take home medications as directed Low sodium/fat diet Exercise as tolerated Monitor blood pressure daily and keep a log Monitor symptoms for any acute changes Recheck with your PCM in 1-2 days Consider a follow-up with cardiology Return to the ED with any worsening symptoms and/or development of fever, headache, chest pain, palpitations, syncope, shortness of breath, trouble breathing, abdominal pain, n/v/d, blood in stool/urine, loss of control of bowel /bladder, urinary retention, muscle weakness/paralysis, numbness/tingling, or other worsening symptoms that are concerning to you. Referrals: RADHA CUEVAS MD [Primary Care Provider] - 05/16/18
--- NOTE | 2018-05-15 23:38 | RADIOLOGY REPORT (SQ) ---
EXAM DESCRIPTION: XR CHEST 1 VIEW COMPLETED DATE/TME: 05/15/2018 23:12 CLINICAL HISTORY: 57 years Female, CP COMPARISON: 9.9.18 NUMBER OF VIEWS/TECHNIQUE: 1/AP FINDINGS: Adequate lung volume, clear parenchyma, mildly enlarged cardiac silhouette, left cardiac stimulator with leads, and sternotomy. IMPRESSION: No acute cardiopulmonary findings.
[2018-05-16 00:12] LABS: INTERNATIONAL RATION (INR) 2.43; PROTHROMBIN TIME 27.6 SEC (11.4-15.4)
[2018-05-16 00:15] LABS: ABSOLUTE EOSINOPHILS # (AUTO) 0.1 10^3/uL (0.0-0.6); ABSOLUTE LYMPHOCYTES (AUTO) 1.2 10^3/uL (0.5-4.7); ABSOLUTE MONOCYTES (AUTO) 0.4 10^3/uL (0.1-1.4); ABSOLUTE NEUT (AUTO) 1.8 10^3/uL (1.7-8.2); BASOPHILS % (AUTO) 0.8 % (0-2); EOSINOPHILS % (AUTO) 2.7 % (0-6); HEMATOCRIT 32.5 % (36.0-47.0); HEMOGLOBIN 10.5 g/dL (12.0-15.5); MEAN CORPUSCULAR HEMOGLOBIN 28.1 pg (27.0-33.4); MEAN CORPUSCULAR HGB CONC 32.5 g/dL (32.0-36.0); MEAN CORPUSCULAR VOLUME 87 fl (80-97); MONOCYTES % (AUTO) 10.9 % (3-13); PLATELET COUNT 186 10^3/uL (150-450); RED BLOOD COUNT 3.75 10^6/uL (3.72-5.28); RED CELL DISTRIBUTION WIDTH 15.7 % (11.5-14.0); SEGMENTED NEUTROPHILS % (AUTO) 52.6 % (42-78); TOTAL CELLS COUNTED % (AUTO) 100 %; WHITE BLOOD COUNT 3.5 10^3/uL (4.0-10.5)
[2018-05-16 01:26] LABS: CALCIUM 9.2 mg/dL (8.4-10.2); GLUCOSE 101 mg/dL (75-110)
[2018-05-16 01:28] LABS: BLOOD UREA NITROGEN 11 mg/dL (7-20); POTASSIUM 3.7 mmol/L (3.6-5.0)
[2018-05-16 01:29] LABS: ANION GAP 10 (5-19); CARBON DIOXIDE 24 mmol/L (22-30); CHLORIDE 106 mmol/L (98-107); SODIUM 139.8 mmol/L (137-145)
[2018-05-16 01:30] LABS: ALANINE AMINOTRANSFERASE 14 U/L (9-52); ALBUMIN 3.7 g/dL (3.5-5.0); ALKALINE PHOSPHATASE 79 U/L (38-126); ASPARTATE AMINO TRANSFERASE 32 U/L (14-36); BILIRUBIN,DIRECT 0.4 mg/dL (0.0-0.4); BILIRUBIN,TOTAL 0.8 mg/dL (0.2-1.3)
[2018-05-16 01:31] LABS: CREATINE KINASE 44 U/L (30-135); NT PRO BNP 1310 pg/mL (5-900); TOTAL PROTEIN 7.6 g/dL (6.3-8.2)
[2018-05-16 01:34] LABS: CREATINE KINASE MB < 0.22 ng/mL (<4.55); TROPONIN I < 0.012 ng/mL
[2018-05-16 03:54] VITALS: BP 111/53
--- NOTE | 2018-05-16 17:02 | EKG REPORT ---
SEVERITY:- ABNORMAL ECG - VENTRICULAR-PACED COMPLEXES NONSPECIFIC IVCD WITH LAD LEFT VENTRICULAR HYPERTROPHY : Confirmed by: Kayla Martino MD 16-May-2018 17:01:45
== END 2018-05-16 03:52 | disposition home or self-care (01) ==
LOC: ER 22:39
DX: R53.1 Weakness (principal); R07.9 Chest pain, unspecified; I50.9 Heart failure, unspecified; I48.91 Unspecified atrial fibrillation; Z95.810 Presence of automatic (implantable) cardiac defibrillator; Z79.02 Long term (current) use of antithrombotics/antiplatelets; Z88.0 Allergy status to penicillin; I25.2 Old myocardial infarction
CPT/HCPCS: 36415; 71045; 80053; 82550; 82553; 83880; 84484; 85025; 85610; 93005; 93010; 99284

== ENCOUNTER 2018-07-19 00:59 | Emergency (ER) | payer MEDICARE, MEDICAID ==
[2018-07-19 01:39] LABS: ABSOLUTE EOSINOPHILS # (AUTO) 0.1 10^3/uL (0.0-0.6); ABSOLUTE LYMPHOCYTES (AUTO) 0.9 10^3/uL (0.5-4.7); ABSOLUTE MONOCYTES (AUTO) 0.4 10^3/uL (0.1-1.4); ABSOLUTE NEUT (AUTO) 1.8 10^3/uL (1.7-8.2); BASOPHILS % (AUTO) 1.3 % (0-2); EOSINOPHILS % (AUTO) 1.9 % (0-6); HEMATOCRIT 32.9 % (36.0-47.0); HEMOGLOBIN 10.8 g/dL (12.0-15.5); LYMPHOCYTES % (AUTO) 27.3 % (13-45); MEAN CORPUSCULAR HEMOGLOBIN 28.6 pg (27.0-33.4); MEAN CORPUSCULAR HGB CONC 32.9 g/dL (32.0-36.0); MEAN CORPUSCULAR VOLUME 87 fl (80-97); MONOCYTES % (AUTO) 11.9 % (3-13); PLATELET COUNT 150 10^3/uL (150-450); RED BLOOD COUNT 3.78 10^6/uL (3.72-5.28); RED CELL DISTRIBUTION WIDTH 14.4 % (11.5-14.0); SEGMENTED NEUTROPHILS % (AUTO) 57.6 % (42-78); TOTAL CELLS COUNTED % (AUTO) 100 %; WHITE BLOOD COUNT 3.2 10^3/uL (4.0-10.5)
[2018-07-19 01:45] LABS: PROTHROMBIN TIME 27.3 SEC (11.4-15.4)
[2018-07-19 01:58] LABS: ALANINE AMINOTRANSFERASE 16 U/L (9-52); ALBUMIN 3.9 g/dL (3.5-5.0); ALKALINE PHOSPHATASE 102 U/L (38-126); ANION GAP 10 (5-19); ASPARTATE AMINO TRANSFERASE 33 U/L (14-36); BILIRUBIN,DIRECT 0.4 mg/dL (0.0-0.4); BILIRUBIN,TOTAL 0.7 mg/dL (0.2-1.3); BLOOD UREA NITROGEN 21 mg/dL (7-20); CALCIUM 9.3 mg/dL (8.4-10.2); CARBON DIOXIDE 29 mmol/L (22-30); CHLORIDE 105 mmol/L (98-107); CREATINE KINASE 55 U/L (30-135); GLUCOSE 111 mg/dL (75-110); POTASSIUM 4.2 mmol/L (3.6-5.0); SODIUM 143.5 mmol/L (137-145); TOTAL PROTEIN 7.8 g/dL (6.3-8.2)
--- NOTE | 2018-07-19 02:12 | RADIOLOGY REPORT (SQ) ---
EXAM DESCRIPTION: XR CHEST 1 VIEW COMPLETED DATE/TME: 07/19/2018 01:33 CLINICAL HISTORY: cp COMPARISON: 05/15/2018 FINDINGS: Single frontal view of the chest. Prior median sternotomy. Left-sided pacemaker. Cardiomegaly. No consolidation, pneumothorax, or pleural effusion. No displaced rib fractures identified. Upper abdominal soft tissues are unremarkable. IMPRESSION: 1. No acute pulmonary process identified. Cardiomegaly.
--- NOTE | 2018-07-19 02:21 | ER Document Report ---
ED General - General Chief Complaint: Chest Pain Stated Complaint: CARDIAC PROBLEMS Time Seen by Provider: 07/19/18 01:32 TRAVEL OUTSIDE OF THE [place] IN LAST 30 DAYS: No - HPI Patient complains to provider of: shaking and chest wall pain Notes: This is a pleasant 57-year-old female with past medical history of A. fib on Xarelto, HFrEF, AICD placement, recent coronary catheterization presents to the emergency department for shaking in the suspicion that her AICD shocked her twice in the last 2 days. Her methods time analyst is out of I did not. She states tonight that she was sitting on the toilet and she felt "real funny", and could not move or get up from the toilet. She denied a syncopal episode. She called for her daughter who helped her and found that she had soiled herself. She denies falling or hitting her head. She endorses dyspnea, orthopnea, and chest wall pain over her pacemaker site. She denies fever, dizziness, lightheadedness , weakness, confusion, loss of consciousness, cough, palpitations, nausea, vomiting, urinary symptoms, extremity edema. - Related Data Allergies/Adverse Reactions: Penicillins Allergy (Verified 12/31/17 22:41) headaches/dizziness Past Medical History - General Information source: Patient, Relative - Social History Smoking Status: Unknown if Ever Smoked Frequency of alcohol use: None Drug Abuse: None Family History: CAD, Hypertension Patient has suicidal ideation: No Patient has homicidal ideation: No - Past Medical History Cardiac Medical History: Reports: Hx Congestive Heart Failure, Hx Heart Attack, Hx Hypercholesterolemia, Hx Hypertension Denies: Hx Atrial Fibrillation, Hx Coronary Artery Disease - cath 2011, Hx Peripheral Vascular Disease, Hx Pulmonary Embolism, Hx Heart Murmur Pulmonary Medical History: Reports: Hx Pneumonia Denies: Hx Asthma, Hx Bronchitis, Hx COPD, Hx Respiratory Failure, Hx Sleep Apnea, Hx Tuberculosis Neurological Medical History: Denies: Hx Cerebrovascular Accident, Hx Seizures Endocrine Medical History: Reports: Hx Hyperthyroidism. Denies: Hx Graves' Disease, Hx Hypothyroidism Renal/ Medical History: Denies: Hx End Stage Renal Disease, Hx Kidney Stones, Hx Ovarian Cysts, Hx Peritoneal Dialysis, Hx Pelvic Inflammatory Disease Malignancy Medical History: Denies: Hx Breast Cancer, Hx Cervical Cancer, Hx Leukemia, Hx Lung Cancer, Hx Ovarian Cancer GI Medical History: Reports: Hx Gastroesophageal Reflux Disease. Denies: Hx Crohn's Disease, Hx Hiatal Hernia, Hx Irritable Bowel, Hx Liver Failure, Hx Pancreatitis, Hx Ulcer Musculoskeletal Medical History: Reports Hx Arthritis - osteoporosis ,RLS, Denies Hx Fibromyalgia, Denies Hx Multiple Sclerosis, Denies Hx Muscular Dystrophy Psychiatric Medical History: Denies: Hx Bipolar Disorder, Hx Dementia, Hx Depression, Hx Post Traumatic Stress Disorder, Hx Schizophrenia Traumatic Medical History: Denies: Hx Fractures Infectious Medical History: Denies: Hx HIV Past Surgical History: Reports: Hx Cardiac Surgery - defibrilator 2009, Hx Cholecystectomy, Hx Internal Defibrillator, Hx Pacemaker. Denies: Hx Appendectomy, Hx Bowel Surgery, Hx Section, Hx Colostomy, Hx Coronary Artery Bypass Graft, Hx Gastric Bypass Surgery, Hx Herniorrhaphy, Hx Hysterectomy, Hx Mastectomy, Hx Tonsillectomy, Hx Tubal Ligation - Immunizations Immunizations up to date: Yes Hx Diphtheria, Pertussis, Tetanus Vaccination: No Hx Pneumococcal Vaccination: 08/22/12 Review of Systems - Review of Systems Constitutional: See HPI EENT: See HPI Cardiovascular: See HPI Respiratory: See HPI Gastrointestinal: See HPI Genitourinary: No symptoms reported Female Genitourinary: No symptoms reported Musculoskeletal: No symptoms reported Skin: No symptoms reported Hematologic/Lymphatic: No symptoms reported Neurological/Psychological: See HPI Physical Exam - Vital signs Vitals: Resp 12 07/19/18 01:08 - Notes Notes: Reviewed vital signs and nursing note as charted by RN. CONSTITUTIONAL: Well-appearing, well-nourished; acting appropriately for age HEAD: Normocephalic; atraumatic; No swelling EYES: PERRL; Conjunctivae clear, no drainage; EOMI ENT: External ears without lesions; External auditory canal is patent; TMs without erythema, landmarks clear and well visualized; no rhinorrhea; Pharynx without erythema or lesions, no tonsillar hypertrophy, airway patent, mucous membranes pink and moist, trace thrush NECK: Supple, no cervical lymphadenopathy, no masses CHEST: Palpation of the chest wall shows no significant chest wall tenderness. Sternal split incision noted. Tenderness noted at pacemaker defibrillator site. HEART: Regular rate and rhythm, 1/6 CHRIS aortic area, 1/6 kohli systolic murmur mitral area, no rubs, no gallops. RESP: Respiratory rate and effort are normal. There is normal chest excursion. No respiratory distress, no retractions, no stridor, no nasal flaring, no accessory muscle use. The lungs are clear to auscultation bilaterally, no wheezing, no rales, no rhonchi. ABD/GI: Normal bowel sounds; non-distended; soft, non-tender, no rebound, no guarding, no palpable organomegaly EXT: Normal ROM in all joints; non-tender to palpation; no effusions, no edema SKIN: Normal color for age and race; warm; dry; good turgor; no acute lesions noted NEURO: No facial asymmetry; Moves all extremities; Motor and sensory function intact, L side 4/5 strength preexisting Course - Re-evaluation Re-evalutation: 07/19/18 03:06 Initial troponin was negative. Spoke with the [facility] A rep who is going to come in and interrogate the pacemaker. 07/19/18 04:03 Rep from [facility] interrogated pacemaker. No shocks have been delivered. Patient has been in persistent A. fib. No rapid rates recorded. Second troponin ordered and awaiting results. Will obtain 1 more EKG. If second troponin is negative and no acute changes on EKG patient's discomfort and chest pain most likely secondary to chest wall pain. 07/19/18 04:06 07/19/18 05:06 Second troponin also negative. Magnesium 2.2. At this point there is no life- threatening cardiac etiology in the setting of the pacemaker interrogation and her symptoms of chest wall pain. She inquired about the shaking in her right h. I told her it is not temporally related to this incident as she has been having it for a long time. I encouraged her to all her primary doctor this morning to make an appointment and potentially get set up with neurology. - Vital Signs Vital signs: Temp Pulse Resp BP Pulse Ox 98.1 F 13 104/50 L 100 07/19/18 01:32 07/19/18 03:01 07/19/18 03:01 07/19/18 03:01 - Laboratory Result Diagrams: 07/19/18 01:27 07/19/18 01:27 Laboratory results interpreted by me: 07/19/18 07/19/18 07/19/18 01:27 01:27 01:27 WBC 3.2 L Hgb 10.8 L Hct 32.9 L RDW 14.4 H PT 27.3 H BUN 21 H Est GFR (Non-Af Amer) 50 L Glucose 111 H Discharge - Discharge Clinical Impression: Chest wall pain, Automatic implantable cardiac defibrillator in situ, Speech difficult to understand Condition: Stable Disposition: HOME, SELF-CARE Instructions: Chest Wall Pain ([facility]), Chest Pain of Unclear Cause ([facility]) Additional Instructions: You were seen in the emergency department this morning for chest wall pain. Your EKGs were all normal, your labs were all normal, and there is no evidence that you had a heart attack or your heart was deprived of oxygen Your pacemaker was checked and there was no signs of any shocks. Please follow-up with your methods time analyst. Also, please continue to take all your medications. It is unclear why you were having the shaking but please get a consult to neurology from your primary care doctor. If you develop a fever or cough, the pain is different, or if you become short of breath and cannot breathe please return to the emergency department. Please follow-up with your primary doctor in the next 24-48 hours. If you have severe chest pain, you pass out, you are unable to move your arms or legs, or have any concerns at all please immediately return to the emergency department. Referrals: RADHA CUEVSA MD [Primary Care Provider] - Follow up as needed
[2018-07-19 02:25] LABS: CREATINE KINASE MB < 0.22 ng/mL (<4.55); TROPONIN I < 0.012 ng/mL
[2018-07-19 05:05] VITALS: BP 132/57
--- NOTE | 2018-07-19 07:42 | EKG REPORT ---
SEVERITY:- ABNORMAL ECG - VENTRICULAR-PACED COMPLEXES FIRST DEGREE AV BLOCK : Confirmed by: Alexandro Qureshi MD 19-Jul-2018 07:42:18
--- NOTE | 2018-07-19 07:44 | EKG REPORT ---
SEVERITY:- ABNORMAL ECG - VENTRICULAR-PACED COMPLEXES BASELINE RHYTHM IS ATRIAL FIB. : Confirmed by: Alexandro Qureshi MD 19-Jul-2018 07:43:54
== END 2018-07-19 05:18 | disposition home or self-care (01) ==
LOC: ER 00:59
DX: R07.89 Other chest pain (principal); I48.91 Unspecified atrial fibrillation; Z79.01 Long term (current) use of anticoagulants; R06.01 Orthopnea; I10 Essential (primary) hypertension; I25.2 Old myocardial infarction; Z95.810 Presence of automatic (implantable) cardiac defibrillator; Z98.890 Other specified postprocedural states; Z82.49 Family history of ischemic heart disease and other diseases of the circulatory system; Z88.0 Allergy status to penicillin
CPT/HCPCS: 36415; 71045; 80053; 82550; 82553; 83735; 84484; 85025; 85610; 93005; 93010; 99285

== ENCOUNTER → 2018-08-24 | Outpatient (CLI) | payer MEDICARE, MEDICAID ==
--- NOTE | 2018-08-25 08:53 | EEG PRO FEE REPORT ---
EEG INTERPRETATION PATIENT NAME: MADISYN ANDRE ROOM#: ORDER#: [id number] DATE OF STUDY: 08/24/2018 : 1960 REFERRING MD: JEY MC M.D. MEDICATIONS: Potassium, Furosemide, Xarelto, FeroSul, Nexium, aspirin, Metoprolol, Clonazepam History This is a 57 year old right handed woman with a history of stroke, hypertension, atrial fibrillation, heart surgery, bowel surgery, pacemaker, gallbladder surgery, with trouble speaking, left leg weakness and tremor in the right hand. This EEG was requested for tremor. EEG Interpretation This EEG was recorded in the awake, drowsy, and sleep states. The awake EEG is characterized by a well organized background with a well developed and reactive posterior dominant rhythm of 10 Hz. There was excessive beta activity. Frontal intermittent rhythmic delta activity {FIRDA} was present. Drowsiness is characterized by slowing of the background rhythms. Vertex waves and sleep spindles were seen in the midline head regions. Photic stimulation resulted in a good driving response. There were no epileptiform abnormalities noted. The EKG showed a regular rhythm. EEG Classification 1. FIRDA 2. Excessive beta EEG Impression This EEG is abnormal. FIRDA is consistent with diffuse cerebral dysfunction. Excessive beta activity can be seen with certain medications {e.g. benzodiazepines}. INTERPRETING PHYSICIAN: AQUILINO CASAS M.D. /: MTEFFT TT: [id number] ID: [id number] /: [id number] TD: [id number] JOB: [id number] cc:Harlan ORELLANA M.D. > MTDD
== END ==
LOC: NEURO 12:42
PROVIDERS: ATTEND Pediatrics
DX: R25.1 Tremor, unspecified (principal); R56.9 Unspecified convulsions; R27.0 Ataxia, unspecified
CPT/HCPCS: 95819

== ENCOUNTER 2018-09-15 15:12 | Emergency (ER) | payer MEDICARE, MEDICAID ==
--- NOTE | 2018-09-15 15:57 | RADIOLOGY REPORT (SQ) ---
EXAM DESCRIPTION: CHEST SINGLE VIEW COMPLETED DATE/TIME: 09/15/2018 3:48 pm REASON FOR STUDY: cp COMPARISON: CT chest 10/11/2017 AP chest 12/31/2017, 05/15/2018, 07/19/2018 EXAM PARAMETERS: NUMBER OF VIEWS: One view. TECHNIQUE: Single frontal radiographic view of the chest acquired. RADIATION DOSE: NA LIMITATIONS: None. FINDINGS: LUNGS AND PLEURA: No opacities, masses or pneumothorax. No pleural effusion. MEDIASTINUM AND HILAR STRUCTURES: No masses. Contour normal. HEART AND VASCULAR STRUCTURES: Stable marked cardiomegaly. Old sternotomy and CABG. Left-sided dual lead pacemaker BONES: No acute findings. HARDWARE: None in the chest. OTHER: No other significant finding. IMPRESSION: Stable cardiomegaly, old CABG and pacemaker. No acute changes TECHNICAL DOCUMENTATION: JOB ID: [id number] [employer]- All Rights Reserved Reading location - IP/workstation name: [email or web address]
[2018-09-15 16:03] LABS: HEMATOCRIT 32.6 % (36.0-47.0); HEMOGLOBIN 10.8 g/dL (12.0-15.5); MEAN CORPUSCULAR HGB CONC 33.1 g/dL (32.0-36.0); MEAN CORPUSCULAR VOLUME 85 fl (80-97); RED BLOOD COUNT 3.85 10^6/uL (3.72-5.28); RED CELL DISTRIBUTION WIDTH 14.2 % (11.5-14.0)
[2018-09-15 16:18] LABS: ALANINE AMINOTRANSFERASE 39 U/L (9-52); ALBUMIN 3.9 g/dL (3.5-5.0); ALKALINE PHOSPHATASE 94 U/L (38-126); ANION GAP 7 (5-19); ASPARTATE AMINO TRANSFERASE 55 U/L (14-36); BILIRUBIN,DIRECT 0.4 mg/dL (0.0-0.4); BILIRUBIN,TOTAL 0.9 mg/dL (0.2-1.3); BLOOD UREA NITROGEN 15 mg/dL (7-20); CALCIUM 8.6 mg/dL (8.4-10.2); CARBON DIOXIDE 27 mmol/L (22-30); CHLORIDE 106 mmol/L (98-107); CREATINE KINASE 790 U/L (30-135); GLUCOSE 95 mg/dL (75-110); POTASSIUM 4.1 mmol/L (3.6-5.0); SODIUM 139.5 mmol/L (137-145); TOTAL PROTEIN 7.3 g/dL (6.3-8.2)
[2018-09-15 16:19] LABS: PLATELET COUNT 90 10^3/uL (150-450)
[2018-09-15 16:26] LABS: ABSOLUTE LYMPHOCYTES# (MANUAL) 0.8 10^3/uL (0.5-4.7); ABSOLUTE MONOCYTES # (MANUAL) 0.2 10^3/uL (0.1-1.4); BAND NEUTROPHILS % (MANUAL) 2 % (3-5); BASOPHILS % (MANUAL) 0 % (0-2); EOSINOPHILS % (MANUAL) 4 % (0-6); LYMPHOCYTES % (MANUAL) 38 % (13-45); MONOCYTES % (MANUAL) 8 % (3-13); SEGMENTED NEUTROPHILS % (MAN) 48 % (42-78); TOTAL CELLS COUNTED 50
[2018-09-15 16:30] LABS: CREATINE KINASE MB 0.26 ng/mL (<4.55)
[2018-09-15 16:31] LABS: ANISOCYTOSIS SLIGHT; POIKILOCYTOSIS SLIGHT; SCHISTOCYTES SLIGHT; TEAR DROP CELLS SLIGHT
[2018-09-15 16:32] LABS: PLATELET COMMENT DECREASED; PLATELET LARGE PRESENT; TROPONIN I < 0.012 ng/mL
[2018-09-15 16:35] LABS: OVALOCYTES 1+
--- NOTE | 2018-09-15 18:17 | ER Document Report ---
ED General - General Chief Complaint: Chest Pain Stated Complaint: DIZZINESS Time Seen by Provider: 09/15/18 15:43 Primary Care Provider: RADHA CUEVAS MD [Primary Care Provider] - Follow up as needed Notes: Patient is concerned that her defibrillator fired off 4 times this morning. She has had this defibrillator in place since it was replaced with a new one on May 02, 2018. Patient has had a recent URI and was diagnosed with pneumonia 2 days ago and started on Levaquin day before yesterday. She has had a significant cough as well as fever and shortness of breath. She says she has had sweats and felt hot and cold last night but not sure she is actually had a fever. Patient does not have a history of lung disease. Is not a smoker. Patient has a history of valvular surgery in 2018. She is currently on blood thinners. Hx CHF and hypertension. Sees Dr. Cuevas. TRAVEL OUTSIDE OF THE [place] IN LAST 30 DAYS: No - Related Data Allergies/Adverse Reactions: Penicillins Allergy (Verified 09/15/18 15:15) headaches/dizziness levofloxacin [From Levaquin] Adverse Reaction (Verified 09/15/18 16:19) Vomiting Past Medical History - Social History Smoking Status: Unknown if Ever Smoked Family History: Reviewed & Not Pertinent, CAD, Hypertension Patient has suicidal ideation: No Patient has homicidal ideation: No - Past Medical History Cardiac Medical History: Reports: Hx Congestive Heart Failure, Hx Heart Attack, Hx Hypercholesterolemia, Hx Hypertension, Other - Cardiac valvular surgery 2018 Defibrillator replaced May 02, 2018. Pulmonary Medical History: Reports: Hx Pneumonia Endocrine Medical History: Reports: Hx Hyperthyroidism GI Medical History: Reports: Hx Gastroesophageal Reflux Disease Musculoskeletal Medical History: Reports Hx Arthritis - osteoporosis ,RLS Past Surgical History: Reports: Hx Cardiac Surgery - defibrilator 2009 replaced April,., Hx Cholecystectomy, Hx Internal Defibrillator, Hx Pacemaker - Immunizations Immunizations up to date: Yes Hx Diphtheria, Pertussis, Tetanus Vaccination: No Hx Pneumococcal Vaccination: 08/22/12 Review of Systems - Review of Systems Notes: REVIEW OF SYSTEMS: CONSTITUTIONAL : Denies fever. EENT: Denies eye, ear, nose or mouth or throat pain or other symptoms. CARDIOVASCULAR: See HPI. No peripheral pitting edema. RESPIRATORY: Has a lot of cough, but not a lot of chest congestion, mild shortness of breath. GASTROINTESTINAL: Denies abdominal pain or nausea, vomiting, or diarrhea. GENITOURINARY: Denies difficulty or painful urinating, urinary frequency, blood in urine. MUSCULOSKELETAL: Denies back or neck pain. Denies joint pain or swelling. SKIN: Denies rash or skin lesions. NEUROLOGICAL: Denies LOC or altered mental status. Denies headache. Denies sensory loss or motor deficits. ALL OTHER SYSTEMS REVIEWED AND NEGATIVE. Physical Exam - Vital signs Vitals: Pulse Ox 98 09/15/18 15:32 Interpretation: Normal. No: Hypoxic Notes: PHYSICAL EXAMINATION: GENERAL: Well-appearing, in no acute distress. Coughing frequently. HEAD: Atraumatic, normocephalic. EYES: Pupils equal round and reactive to light, extraocular movements intact. ENT: oropharynx clear without exudates. Moist mucous membranes. NECK: Normal range of motion, supple. LUNGS: Breath sounds clear and equal bilaterally. A few rhonchi may be present, but no wheezes heard. HEART: Regular rate and rhythm without murmurs. ABDOMEN: Soft, nontender. No guarding or rebound. No masses. BACK: No tenderness throughout entire back. EXTREMITIES: Normal range of motion without pain. No edema present. Negative Homans bilaterally. NEUROLOGICAL: Normal speech. Normal sensory, motor, and reflex exams. Awake, alert, and oriented x3. Cranial nerves normal. PSYCH: Normal mood, normal affect. SKIN: Warm, dry, no rashes. Course - Re-evaluation Re-evalutation: 09/15/18 19:29 Patient's CPK is elevated at 790. I questioned daughter and patient as to whether she is on any statin medications for cholesterol and they said she is not. Patient's WBC is also low at 2000 with predominantly lymphocytes. Her white cell count in June was 3200. I made the patient and her daughter aware of these findings, as well. I advised her that I will try to contact Dr. Cuevas when he is available Tuesday to make him aware of these findings. 09/15/18 19:31 Defibrillator care support representative came to the ER and interrogated the patient's defibrillator. He found no evidence of it having fired at all. No firing of the defibrillator found at all. Uncertain what caused the patient's symptoms. - Vital Signs Vital signs: Temp Pulse Resp BP Pulse Ox 98.8 F 20 118/74 99 09/15/18 19:07 09/15/18 18:56 09/15/18 18:57 09/15/18 18:56 - Laboratory Result Diagrams: 09/15/18 15:37 09/15/18 15:37 Laboratory results interpreted by me: 09/15/18 09/15/18 15:37 15:37 WBC 2.0 L Hgb 10.8 L Hct 32.6 L RDW 14.2 H Plt Count 90 L Band Neutrophils % 2 L Abs Neuts (Manual) 1.0 L Est GFR (Non-Af Amer) 51 L AST 55 H Creatine Kinase 790 H Discharge - Discharge Clinical Impression: Upper respiratory infection, Chest wall pain, AICD (automatic cardioverter/defibrillator) present Condition: Stable Disposition: HOME, SELF-CARE Additional Instructions: UPPER RESPIRATORY ILLNESS: You have a viral infection of the respiratory passages -- a "cold." This common infection causes nasal congestion, drainage, and often sore throat and cough. It is highly contagious. The disease usually lasts about 10 to 14 days. There is no "cure" for the viral infection -- it must run its course. If there is a complication, such as bacterial infection in the nose, sinuses, middle ear, or bronchial tubes, antibiotics may be required. The antibiotics won't affect the virus. Drink plenty of fluids. A humidifier may help. An expectorant medication or decongestant may make you more comfortable. Use acetaminophen or ibuprofen for fever or aches. See the doctor if fever persists over two days, if there is any significant worsening of your symptoms, or if you simply fail to improve as expected. USE OF ACETAMINOPHEN (Tylenol): Acetaminophen may be taken for pain relief or fever control. It's much safer than aspirin, offering a wider range of "safe" dosages. It is safe during . Some brand names are Tylenol, Panadol, Datril, Anacin 3, Tempra, and Liquiprin. Acetaminophen can be repeated every four hours. The following are maximum recommended dosages: >89 pounds or adults 650 mg to 900 mg Acetaminophen can be repeated every four hours. Maximum dose not to exceed 4000 mg a day. CHEST PAIN OF UNCLEAR CAUSE: The exact cause of your chest pain isn't clear. Fortunately, there is no evidence of a dangerous medical condition. Further testing may be required to find the source of the pain. Most often, we find that this pain is coming from the chest wall -- the muscles or rib joints in the chest. But chest pain can come from the lung and lung lining, the esophagus, the heart valves or heart lining, and even the stomach or gallbladder. Rest. Eat lightly until the pain is gone. We may prescribe medicine for pain and inflammation. You should call the physician immediately if the pain radiates to the shoulder, jaw or arms; if you start to run a fever or develop a cough; or if you develop shortness of breath, or other new or alarming symptoms. Your defibrillator analysis did not show any evidence of having misfired. CHEST WALL PAIN: Your chest pain may be coming from the chest wall. This is often caused by straining the muscles or joints in the chest during physical activity, direct trauma, coughing, or vigorous vomiting. Persons with arthritis are especially prone to this type of pain, due to inflammation of the cartilage joints near the breast bone. Occasionally, no cause can be found. Rest from strenuous physical activity. This kind of chest pain is usually made worse by movement of the chest. Depending on the symptoms, we may prescribe medicine for pain, muscle relaxation, and antiinflammatory effects. If the pain is new, and seems to be due to muscle strain, cold packs can help. Otherwise, apply gentle warmth to the painful area for 15 minutes every hour or two. You should call contact the doctor immediately if things change. Further evaluation is needed if you develop a fever or cough, if the nature of the pain changes, or if you become short of breath. FOLLOW-UP CARE: If you have been referred to a physician for follow-up care, call the physicians office for an appointment as you were instructed or within the next two days. If you experience worsening or a significant change in your symptoms, notify the physician immediately or return to the Emergency Department at any time for re-evaluation. Your white cell counts are low and your CPK level is high. I will try to make Dr. Cuevas aware of these findings Tuesday. He is not contract associate at this time. Drink plenty of fluids. Continue to take your antibiotic as before. Return for reevaluation if you have new or worsening symptoms such as high fevers, etc. Referrals: RADHA CUEVAS MD [Primary Care Provider] - Follow up as needed
[2018-09-15 18:59] VITALS: BP 118/74
--- NOTE | 2018-09-15 23:00 | EKG REPORT ---
SEVERITY:- ABNORMAL ECG - AFIB/FLUTTER AND VENTRICULAR-PACED RHYTHM : Confirmed by: Kayla Martino MD 15-Sep-2018 22:59:13
[2018-09-18 11:04] LABS: PATH REVIEW PATHOLOGIST REVIEWED
== END 2018-09-15 19:07 | disposition home or self-care (01) ==
LOC: ER 15:12
DX: Z45.02 Encounter for adjustment and management of automatic implantable cardiac defibrillator (principal); J18.9 Pneumonia, unspecified organism; J06.9 Acute upper respiratory infection, unspecified; R07.89 Other chest pain; I10 Essential (primary) hypertension; I25.2 Old myocardial infarction; Z98.890 Other specified postprocedural states; Z79.01 Long term (current) use of anticoagulants; Z88.0 Allergy status to penicillin
CPT/HCPCS: 36415; 71045; 80053; 82550; 82553; 84484; 85025; 93005; 93010; 99284

== ENCOUNTER 2019-01-21 08:03 | Emergency (ER) | payer MEDICARE, MEDICAID ==
[2019-01-21] MEDS ORDERED: ACETAMINOPHEN 325 MG TABLET PO ONE (09:14)
--- NOTE | 2019-01-21 09:19 | RADIOLOGY REPORT (SQ) ---
EXAM DESCRIPTION: KNEE LEFT 4 VIEW COMPLETED DATE/TIME: 01/21/2019 8:59 am REASON FOR STUDY: knee pain COMPARISON: None. NUMBER OF VIEWS: Four views left knee LIMITATIONS: None. FINDINGS: Mild osteopenia. Moderate degenerative joint space loss medially with spurring and mild v arus alignment. Spurring in the other compartments as well. Small joint effusion. OTHER: No other significant finding. IMPRESSION: Small joint effusion. DJD. Osteopenic. TECHNICAL DOCUMENTATION: JOB ID: [id number] Reading location - IP/workstation name: [email or web address]
--- NOTE | 2019-01-21 09:40 | ER Document Report ---
HPI - HPI Patient complains to provider of: Left knee pain Time Seen by Provider: 01/21/19 09:14 Onset: Other - 2 to 3 months Onset/Duration: Persistent Quality of pain: Achy Severity: Severe Pain Level: 4 Context: Patient presents emergency department with complaints of left knee pain for the past 2 to 3 months. Reports increased pain with walking movement but it always hurts. Denies trauma. Reports history of arthritis. She reports she was told she needed a knee replacement years ago. She has been evaluated by Dr. Weaver 3 weeks ago he told her that she may need a Doppler. Patient is a cardiac patient with cardiac surgery. Is currently taking a "blood thinner." She reports increased pain last night she could not get comfortable. Denies other symptoms such as fever vomiting diarrhea. Associated Symptoms: None Exacerbated by: Movement, Walking Relieved by: Denies Similar symptoms previously: Yes Recently seen / treated by doctor: Yes - CONSTITUTIONAL Constitutional: DENIES: Fever, Chills - REPRODUCTIVE Reproductive: DENIES: : - MUSCULOSKELETAL Musculoskeletal: REPORTS: Extremity pain - left knee Past Medical History - General Information source: Patient - Social History Smoking Status: Unknown if Ever Smoked Cigarette use (# per day): No Frequency of alcohol use: None Drug Abuse: None Lives with: Family Family History: Reviewed & Not Pertinent, CAD, Hypertension Patient has suicidal ideation: No Patient has homicidal ideation: No - Past Medical History Cardiac Medical History: Reports: Hx Congestive Heart Failure, Hx Heart Attack, Hx Hypercholesterolemia, Hx Hypertension Denies: Hx Atrial Fibrillation, Hx Coronary Artery Disease - cath 2011, Hx Peripheral Vascular Disease, Hx Pulmonary Embolism, Hx Heart Murmur Pulmonary Medical History: Reports: Hx Pneumonia Denies: Hx Asthma, Hx Bronchitis, Hx COPD, Hx Respiratory Failure, Hx Sleep Apnea, Hx Tuberculosis Neurological Medical History: Denies: Hx Cerebrovascular Accident, Hx Seizures Endocrine Medical History: Reports: Hx Hyperthyroidism. Denies: Hx Graves' Disease, Hx Hypothyroidism Renal/ Medical History: Denies: Hx End Stage Renal Disease, Hx Kidney Stones, Hx Ovarian Cysts, Hx Peritoneal Dialysis, Hx Pelvic Inflammatory Disease Malignancy Medical History: Denies: Hx Breast Cancer, Hx Cervical Cancer, Hx Leukemia, Hx Lung Cancer, Hx Ovarian Cancer GI Medical History: Reports: Hx Gastroesophageal Reflux Disease. Denies: Hx Crohn's Disease, Hx Hiatal Hernia, Hx Irritable Bowel, Hx Liver Failure, Hx Pancreatitis, Hx Ulcer Musculoskeletal Medical History: Reports Hx Arthritis - osteoporosis ,RLS, Denies Hx Fibromyalgia, Denies Hx Multiple Sclerosis, Denies Hx Muscular Dystrophy, Denies Hx Systemic Lupus Erythematosus Psychiatric Medical History: Denies: Hx Bipolar Disorder, Hx Dementia, Hx Depression, Hx Post Traumatic Stress Disorder, Hx Schizophrenia Traumatic Medical History: Denies: Hx Fractures Infectious Medical History: Denies: Hx HIV Past Surgical History: Reports: Hx Cardiac Surgery - defibrilator 2008 replaced April,., Hx Cholecystectomy, Hx Internal Defibrillator, Hx Pacemaker. Denies: Hx Appendectomy, Hx Bowel Surgery, Hx Section, Hx Colostomy, Hx Coronary Artery Bypass Graft, Hx Gastric Bypass Surgery, Hx Herniorrhaphy, Hx Hysterectomy, Hx Mastectomy, Hx Tonsillectomy, Hx Tubal Ligation - Immunizations Immunizations up to date: Yes Hx Diphtheria, Pertussis, Tetanus Vaccination: No Hx Pneumococcal Vaccination: 08/22/12 Vertical Provider Document - CONSTITUTIONAL Agree With Documented VS: Yes Exam Limitations: No Limitations General Appearance: WD/WN, No Apparent Distress - Patient is very calm easy gentle manner - INFECTION CONTROL TRAVEL OUTSIDE OF THE [place] IN LAST 30 DAYS: No - HEENT HEENT: Atraumatic, Normocephalic - NECK Neck: Supple - RESPIRATORY Respiratory: No Respiratory Distress - CARDIOVASCULAR Cardiovascular: Regular Rate - MUSCULOSKELETAL/EXTREMETIES Musculoskeletal/Extremeties: ABBEY CRAVEN, Tender - Patient complains of left knee anterior tenderness to palpation. No obvious deformity no erythema no warmth no obvious swelling good cap refill - NEURO Level of Consciousness: Awake, Alert, Appropriate Motor/Sensory: No Motor Deficit - DERM Integumentary: Warm, Dry Adult Front & Back Diagram: 1 - Patient complains of pain tender to palpation Course - Re-evaluation Re-evalutation: 01/21/19 09:55 Knee x-ray shows DJD, Osteopenic, small effusion, no acute fracture. Patient was instructed on signs and symptoms of septic joint. Daughter at bedside listen carefully. Verbalized understanding to all instructions. Instructed to follow-up with Dr. Lopez tomorrow for referral to orthopedic as indicated. Also instructed to monitor her knee for signs of joint infection. Both verbalized understanding. 01/21/19 09:58 - Vital Signs Vital signs: Temp Pulse Resp BP Pulse Ox 98.3 F 70 18 132/76 H 95 01/21/19 08:24 01/21/19 08:24 01/21/19 08:24 01/21/19 08:24 01/21/19 08:24 - Diagnostic Test Radiology reviewed: Image reviewed, Reports reviewed - EXAM DESCRIPTION: KNEE LEFT 4 VIEW COMPLETED DATE/TIME: 01/21/2019 8:59 am REASON FOR STUDY: knee pain COMPARISON: None. NUMBER OF VIEWS: Four views left knee LIMITATIONS: None. FINDINGS: Mild osteopenia. Moderate degenerative joint space loss medially with spurring and mild varus alignment. Spurring in the other compartments as well. Small joint effusion. OTHER: No other significant finding. IMPRESSION: Small joint effusion. DJD. Osteopenic. Procedures - Immobilization Left Knee Pre-Proc Neuro Vasc Exam: Normal Immobilizer type: Kailash wrap Performed by: PCT Post-Proc Neuro Vasc Exam: Unchanged from pre-exam Alignment checked and good: Yes Discharge - Discharge Clinical Impression: Left anterior knee pain, Effusion, left knee Condition: Stable Disposition: HOME, SELF-CARE Instructions: Acetaminophen, Kailash Wrap ([facility]), Ice & Elevation ([facility]), Knee Effusion ([facility]) Additional Instructions: *You have been evaluated for knee pain *Rest/Ice/Elevate your knee *Maintain the kailash wrap for comfort *Use your walker *Follow up with Dr Cuevas tomorrow for referral to orthopedics as indicated *Take tylenol as indicated for pain *Monitor your knee for signs of infection as we discussed redness swelling warmth *Return to ED for worsening condition, changes, needs, signs of infection in your knee Forms: Elevated Blood Pressure Referrals: RADHA CUEVAS MD [Primary Care Provider] - Follow up as needed
[2019-01-21 09:57] VITALS: BP 117/74
== END 2019-01-21 10:02 | disposition home or self-care (01) ==
LOC: ER 08:03
DX: M17.12 Unilateral primary osteoarthritis, left knee (principal); M85.862 Other specified disorders of bone density and structure, left lower leg; M25.462 Effusion, left knee; M25.562 Pain in left knee; I10 Essential (primary) hypertension; I25.2 Old myocardial infarction; Z95.810 Presence of automatic (implantable) cardiac defibrillator; Z79.01 Long term (current) use of anticoagulants
CPT/HCPCS: 99283; 73564; A9270

== ENCOUNTER → 2019-02-19 | Outpatient (CLI) | payer MEDICARE, MEDICAID ==
--- NOTE | 2019-02-21 15:40 | WOMENS IMAGING REPORT ---
EXAM DESCRIPTION: 3D SCREENING MAMMO BILAT COMPLETED DATE/TIME: 02/19/2019 9:15 am REASON FOR STUDY: Z12.31 ROUTINE 3D BILATERAL SCREENING Z12.31 ENCNTR SCREEN MAMMOGRAM FOR MALIGNAN T NEOPLASM OF MATTIE COMPARISON: Multiple since 2009 EXAM PARAMETERS: Standard craniocaudal and mediolateral oblique views of each breast recorded using digital acquisition and breast tomosynthesis. Read with the assistance of CAD. .[facility] - [employer] Version 9.2 LIMITATIONS: None. FINDINGS: Findings present which are benign by mammographic criteria. No suspicious masses, calcific ations or architectural distortion. Pertinent benign findings: Benign bilateral breast parenchymal calcifications. Benign mammographic findings may include one or more of the following: Smooth masses, popcorn/rim/coa rse calcifications, asymmetries, post-procedure changes, and lesions with long-standing stability. IMPRESSION: BENIGN MAMMOGRAPHIC FINDINGS. BIRADS 2 BREAST DENSITY: a. The breasts are almost entirely fatty. BIRAD: ASSESSMENT: 2 BENIGN FINDING(S) RECOMMENDATION: ROUTINE SCREENING COMMENT: The patient has been notified of the results by letter per [place] requirements. Additional no tification policies are in place for contacting patient with suspicious or incomplete findings. Quality ID #225: The [employer] recommends an annual screening mammogram for women aged 40 years or over. This facility utilizes a reminder system to ensure that all patients receive reminder letters, and/or direct phone calls for appointments. This includes reminders for routine scr eening mammograms, diagnostic mammograms, or other Breast Imaging Interventions when appropriate. Th is patient will be placed in the appropriate reminder system. TECHNICAL DOCUMENTATION: FINDING NUMBER: (1) ASSESSMENT: (1) JOB ID: [id number] [employer]- All Rights Reserved Reading location - IP/workstation name: [email or web address]
== END ==
LOC: WI 08:50
PROVIDERS: ATTEND Internal Medicine Geriatric Medicine
DX: Z12.31 Encounter for screening mammogram for malignant neoplasm of breast (principal)
CPT/HCPCS: 77063; 77067

== ENCOUNTER 2019-04-10 10:14 | Emergency (ER) | payer MEDICARE, MEDICAID ==
--- NOTE | 2019-04-10 10:59 | RADIOLOGY REPORT (SQ) ---
EXAM DESCRIPTION: CHEST SINGLE VIEW COMPLETED DATE/TIME: 04/10/2019 10:49 am REASON FOR STUDY: chest pain COMPARISON: 09/15/2018 NUMBER OF VIEWS: One view. TECHNIQUE: Single frontal radiographic view of the chest acquired. LIMITATIONS: None. FINDINGS: LUNGS AND PLEURA: No opacities, masses or pneumothorax. No pleural effusion. MEDIASTINUM AND HILAR STRUCTURES: No masses. Contour normal. HEART AND VASCULAR STRUCTURES: Heart remains enlarged. No failure. BONES: No acute findings. HARDWARE: Unchanged. Battery pack and leads are in place along with sternotomy wires. OTHER: No other significant finding. IMPRESSION: Cardiomegaly. No acute findings in the chest. TECHNICAL DOCUMENTATION: JOB ID: [id number] [employer]- All Rights Reserved Reading location - IP/workstation name: [email or web address]
[2019-04-10 11:22] LABS: ABSOLUTE EOSINOPHILS # (AUTO) 0.1 10^3/uL (0.0-0.6); ABSOLUTE LYMPHOCYTES (AUTO) 0.9 10^3/uL (0.5-4.7); ABSOLUTE MONOCYTES (AUTO) 0.4 10^3/uL (0.1-1.4); ABSOLUTE NEUT (AUTO) 1.5 10^3/uL (1.7-8.2); EOSINOPHILS % (AUTO) 2.7 % (0-6); HEMATOCRIT 35.9 % (36.0-47.0); HEMOGLOBIN 11.9 g/dL (12.0-15.5); LYMPHOCYTES % (AUTO) 30.7 % (13-45); MEAN CORPUSCULAR HEMOGLOBIN 28.2 pg (27.0-33.4); MEAN CORPUSCULAR HGB CONC 33.1 g/dL (32.0-36.0); MEAN CORPUSCULAR VOLUME 85 fl (80-97); MONOCYTES % (AUTO) 12.5 % (3-13); PLATELET COUNT 133 10^3/uL (150-450); RED BLOOD COUNT 4.23 10^6/uL (3.72-5.28); RED CELL DISTRIBUTION WIDTH 15.2 % (11.5-14.0); SEGMENTED NEUTROPHILS % (AUTO) 53.1 % (42-78); TOTAL CELLS COUNTED % (AUTO) 100 %; WHITE BLOOD COUNT 2.8 10^3/uL (4.0-10.5)
[2019-04-10 11:29] LABS: INTERNATIONAL RATION (INR) 1.52; PROTHROMBIN TIME 18.4 SEC (11.4-15.4)
--- NOTE | 2019-04-10 11:41 | ER Document Report ---
Entered by PIERRE STILES SCRIBE 04/10/19 1050 Acting as scribe for:PATT WHITE MD ED Cardiac - General Chief Complaint: Chest Pain Stated Complaint: CHEST PAIN Time Seen by Provider: 04/10/19 10:34 Primary Care Provider: RADHA CUEVAS MD [Primary Care Provider] - Follow up as needed Mode of Arrival: Ambulatory Information source: Patient Notes: 58-year-old female with prior CVA who presents to the emergency department today with complaints of chest pain for the last x3 days. Patient also complains of "sweating a lot yesterday". Patient states that she had her defibrillator changed in April of 2018. Patient had open heart surgery for valve replacement although she is unsure of when or what valve was replaced. History i s somewhat limited. TRAVEL OUTSIDE OF THE [place] IN LAST 30 DAYS: No - Related Data Allergies/Adverse Reactions: Penicillins Allergy (Verified 09/15/18 15:15) headaches/dizziness levofloxacin [From Levaquin] Adverse Reaction (Verified 09/15/18 16:19) Vomiting Past Medical History - General Information source: Patient - Social History Smoking Status: Never Smoker Cigarette use (# per day): No Chew tobacco use (# tins/day): No Smoking Education Provided: No Frequency of alcohol use: None Drug Abuse: None Lives with: Family Family History: Reviewed & Not Pertinent, CAD, Hypertension Patient has suicidal ideation: No Patient has homicidal ideation: No - Past Medical History Cardiac Medical History: Reports: Hx Congestive Heart Failure, Hx Heart Attack, Hx Hypercholesterolemia, Hx Hypertension Pulmonary Medical History: Reports: Hx Pneumonia Endocrine Medical History: Reports: Hx Hyperthyroidism GI Medical History: Reports: Hx Gastroesophageal Reflux Disease Musculoskeletal Medical History: Reports Hx Arthritis - osteoporosis ,RLS Past Surgical History: Reports: Hx Cardiac Surgery - defibrilator 2008 replaced April,., Hx Cholecystectomy, Hx Internal Defibrillator, Hx Pacemaker - Immunizations Immunizations up to date: Yes Hx Diphtheria, Pertussis, Tetanus Vaccination: No Hx Pneumococcal Vaccination: 08/22/12 Review of Systems - Review of Systems Constitutional: No symptoms reported EENT: No symptoms reported Cardiovascular: See HPI, Chest pain Respiratory: No symptoms reported Gastrointestinal: No symptoms reported Genitourinary: No symptoms reported Female Genitourinary: No symptoms reported Musculoskeletal: No symptoms reported Skin: No symptoms reported Hematologic/Lymphatic: No symptoms reported Neurological/Psychological: No symptoms reported -: Yes All other systems reviewed and negative Physical Exam - Vital signs Vitals: Temp Resp BP Pulse Ox 98.4 F 19 119/73 99 04/10/19 10:27 04/10/19 10:27 04/10/19 10:27 04/10/19 10:27 - Notes Notes: Physical Exam: General: Alert, appears well. HEENT: Normocephalic. Atraumatic. PERRL. Extraocular movements intact. Oropharynx clear. Neck: Supple. Non-tender. Respiratory: No respiratory distress. Clear and equal breath sounds bilaterally. Left anterior chest wall tenderness with palpation, most tender around defibrillator. Cardiovascular: Regular rate and rhythm. Abdominal: Normal Inspection. Non-tender. No distension. Normal Bowel Sounds. Back: Grossly normal Extremities: Moves all four extremities. Upper extremities: See neuro exam Lower extremities: Normal inspection. No edema. Normal ROM. Neurological: Normal cognition. AAOx4. Strange stuttering pattern, see speech therapy evaluation from 02/21/19. RUE tremor which increases with stress. Psychological: Normal affect. Normal Mood. Skin: Warm. Dry. Normal color. Course - Re-evaluation Re-evalutation: 04/10/19 13:11 Patient reports that she does feel better after the Toradol. - Vital Signs Vital signs: Temp Pulse Resp BP Pulse Ox 98.4 F 17 111/67 100 04/10/19 10:27 04/10/19 12:01 04/10/19 12:01 04/10/19 12:01 - Laboratory Result Diagrams: 04/10/19 10:50 04/10/19 10:50 Laboratory results interpreted by me: 04/10/19 04/10/19 10:50 10:50 WBC 2.8 L Hgb 11.9 L Hct 35.9 L RDW 15.2 H Plt Count 133 L Absolute Neutrophils 1.5 L PT 18.4 H - Diagnostic Test Radiology reviewed: Image reviewed, Reports reviewed - This x-ray shows cardiomegaly, no other abnormality. - EKG Interpretation by Nm EKG shows normal: [place], Intervals, ST-T Waves. abnormal: QRS Complexes Rate: Normal - 73 Rhythm: Other - Ventricular paced rhythm [place]/QRS: IVCD Discharge - Discharge Clinical Impression: Anterior chest wall pain Condition: Stable Disposition: HOME, SELF-CARE Additional Instructions: Chest Wall Pain Your chest pain has been diagnosed as coming from the chest wall. This is often caused by straining the muscles or joints in the chest during physical activity, direct trauma, coughing, or vigorous vomiting. Persons with arthritis are especially prone to this type of pain, due to inflammation of the cartilage joints near the breast bone. Occasionally, no cause can be found. Rest from strenuous physical activity. This kind of chest pain is usually made worse by movement of the chest. Depending on the symptoms, we may prescribe medicine for pain, muscle relaxation, and antiinflammatory effects. If the pain is new, and seems to be due to muscle strain, cold packs can help. Otherwise, apply gentle warmth to the painful area for 15 minutes every ho ur or two. You should contact the doctor immediately if things change. Further evaluation is needed if you develop a fever or cough, if the nature of the pain changes, or if you become short of breath. Take Tylenol and ibuprofen for the pain if needed. Avoid activity that uses your arms for any lifting for a few days. Try moist heat applications to the painful area. Follow-up with Dr. Cuevas if not improving. RETURN TO THE EMERGENCY ROOM IF ANY NEW OR WORSENING SYMPTOMS. Referrals: RADHA CUEVAS MD [Primary Care Provider] - Follow up as needed Scribe Attestation: 04/10/19 11:41 I personally performed the services described in the documentation, reviewed and edited the documentation which was dictated to the scribe in my presence, and it accurately records my words and actions. I personally performed the services described in the documentation, reviewed and edited the documentation which was dictated to the scribe in my presence, and it accurately records my words and actions.
[2019-04-10 11:42] LABS: ALBUMIN 4.4 g/dL (3.5-5.0); ALKALINE PHOSPHATASE 95 U/L (38-126); ANION GAP 10 (5-19); ASPARTATE AMINO TRANSFERASE 25 U/L (14-36); BILIRUBIN,DIRECT 0.3 mg/dL (0.0-0.4); BILIRUBIN,TOTAL 1.1 mg/dL (0.2-1.3); BLOOD UREA NITROGEN 14 mg/dL (7-20); CALCIUM 9.6 mg/dL (8.4-10.2); CARBON DIOXIDE 26 mmol/L (22-30); CHLORIDE 106 mmol/L (98-107); CREATINE KINASE 97 U/L (30-135); GLUCOSE 91 mg/dL (75-110); POTASSIUM 4.2 mmol/L (3.6-5.0); TOTAL PROTEIN 8.2 g/dL (6.3-8.2)
[2019-04-10 11:56] LABS: CREATINE KINASE MB < 0.22 ng/mL (<4.55); TROPONIN I < 0.012 ng/mL
[2019-04-10] MEDS ORDERED: KETOROLAC TROMETHAMINE INJ/PF 30 MG/1 ML SDV IV ONE (12:33)
[2019-04-10 13:38] VITALS: BP 117/57
--- NOTE | 2019-04-10 20:02 | EKG REPORT ---
SEVERITY:- ABNORMAL ECG - ATRIAL FIBRILLATION ST DEPRESSION, CONSIDER ISCHEMIA, ANT-LAT LDS V PACED RHYTHM.BASELINE ARTIFACT. : Confirmed by: Kayla Martino MD 10-Apr-2019 20:01:53
== END 2019-04-10 13:56 | disposition home or self-care (01) ==
LOC: ER 10:14
DX: R07.89 Other chest pain (principal); R61 Generalized hyperhidrosis; I11.9 Hypertensive heart disease without heart failure; I25.2 Old myocardial infarction; Z95.810 Presence of automatic (implantable) cardiac defibrillator; Z95.2 Presence of prosthetic heart valve; Z88.0 Allergy status to penicillin
CPT/HCPCS: 93005; 36415; 82553; 82550; 85025; 85610; 80053; 84484; 71045; 93010; J1885; 96374; 99285

== ENCOUNTER → 2019-05-17 | Outpatient (CLI) | payer MEDICARE, MEDICAID ==
--- NOTE | 2019-05-17 14:26 | RADIOLOGY REPORT (SQ) ---
EXAM DESCRIPTION: CHEST PA/LATERAL COMPLETED DATE/TIME: 05/17/2019 12:40 pm REASON FOR STUDY: CHEST PAIN COMPARISON: 04/10/2019 TECHNIQUE: Frontal and lateral radiographic views of the chest acquired. NUMBER OF VIEWS: Two view. LIMITATIONS: None. FINDINGS: LUNGS AND PLEURA: No opacities, masses or pneumothorax. No pleural effusion. MEDIASTINUM AND HILAR STRUCTURES: Stable postoperative contours. Sternal wires appear to be intact. HEART AND VASCULAR STRUCTURES: Cardiomegaly with mild vascular congestion. BONES: No acute findings. HARDWARE: Pacer intact. OTHER: No other significant finding. IMPRESSION: Cardiomegaly and vascular congestion. TECHNICAL DOCUMENTATION: JOB ID: [id number] [employer]- All Rights Reserved Reading location - IP/workstation name: [email or web address]
== END ==
LOC: OD 12:28
PROVIDERS: ATTEND Specialist
DX: I51.7 Cardiomegaly (principal); R07.9 Chest pain, unspecified
CPT/HCPCS: 71046

== ENCOUNTER 2019-09-25 16:42 | Emergency (ER) | payer MEDICARE, MEDICAID ==
[2019-09-25 17:50] LABS: ABSOLUTE EOSINOPHILS # (AUTO) 0.1 10^3/uL (0.0-0.6); ABSOLUTE LYMPHOCYTES (AUTO) 1.1 10^3/uL (0.5-4.7); ABSOLUTE MONOCYTES (AUTO) 0.3 10^3/uL (0.1-1.4); ABSOLUTE NEUT (AUTO) 1.7 10^3/uL (1.7-8.2); BASOPHILS % (AUTO) 1.3 % (0-2); EOSINOPHILS % (AUTO) 1.8 % (0-6); HEMOGLOBIN 9.9 g/dL (12.0-15.5); LYMPHOCYTES % (AUTO) 34.1 % (13-45); MEAN CORPUSCULAR HEMOGLOBIN 28.7 pg (27.0-33.4); MEAN CORPUSCULAR HGB CONC 32.1 g/dL (32.0-36.0); MEAN CORPUSCULAR VOLUME 90 fl (80-97); MONOCYTES % (AUTO) 10.4 % (3-13); PLATELET COUNT 159 10^3/uL (150-450); RED BLOOD COUNT 3.46 10^6/uL (3.72-5.28); RED CELL DISTRIBUTION WIDTH 15.5 % (11.5-14.0); SEGMENTED NEUTROPHILS % (AUTO) 52.4 % (42-78); TOTAL CELLS COUNTED % (AUTO) 100 %; WHITE BLOOD COUNT 3.2 10^3/uL (4.0-10.5)
--- NOTE | 2019-09-25 17:59 | RADIOLOGY REPORT (SQ) ---
EXAM DESCRIPTION: CHEST SINGLE VIEW COMPLETED DATE/TIME: 09/25/2019 4:21 pm REASON FOR STUDY: bed 17 cp COMPARISON: 05/17/2019 EXAM PARAMETERS: NUMBER OF VIEWS: One view. TECHNIQUE: Single frontal radiographic view of the chest acquired. RADIATION DOSE: NA LIMITATIONS: None. FINDINGS: LUNGS AND PLEURA: No opacities, masses or pneumothorax. No pleural effusion. MEDIASTINUM AND HILAR STRUCTURES: No masses. Contour normal. HEART AND VASCULAR STRUCTURES: Heart normal in size. Normal vasculature. BONES: No acute findings. HARDWARE: Left infraclavicular AICD with intact lead wires unchanged. OTHER: No other significant finding. IMPRESSION: NO ACUTE RADIOGRAPHIC FINDING IN THE CHEST. TECHNICAL DOCUMENTATION: JOB ID: [id number] [employer]- All Rights Reserved Reading location - IP/workstation name: [email or web address]
[2019-09-25 18:03] LABS: ALKALINE PHOSPHATASE 98 U/L (38-126); ANION GAP 10 (5-19); ASPARTATE AMINO TRANSFERASE 23 U/L (14-36); BILIRUBIN,TOTAL 0.7 mg/dL (0.2-1.3); BLOOD UREA NITROGEN 21 mg/dL (7-20); CALCIUM 9.2 mg/dL (8.4-10.2); CARBON DIOXIDE 23 mmol/L (22-30); CHLORIDE 106 mmol/L (98-107); CREATINE KINASE 77 U/L (30-135); GLUCOSE 93 mg/dL (75-110); POTASSIUM 4.1 mmol/L (3.6-5.0); TOTAL PROTEIN 7.7 g/dL (6.3-8.2)
[2019-09-25 18:14] LABS: CREATINE KINASE MB 0.29 ng/mL (<4.55); TROPONIN I < 0.012 ng/mL
--- NOTE | 2019-09-25 21:05 | ER Document Report ---
ED General - General Chief Complaint: Chest Pain Stated Complaint: PALPITATIONS Time Seen by Provider: 09/25/19 17:36 Primary Care Provider: RADHA CUEVAS MD [Primary Care Provider] - Follow up as needed TRAVEL OUTSIDE OF THE [place] IN LAST 30 DAYS: No - HPI Notes: Patient is a 5-year-old female with a history of atrial fibrillation, ICD, congestive heart failure, who presents to the emergency department for evaluation of chest pain and palpitations. She states that she gets palpitations frequently. She also complains of a chest pain. She states that this happens frequently as well. 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 At the time of my evaluation she denies any chest pain. She really cannot describe the chest pain for me, but points to her diffuse left chest, the inferior aspect. She states she has intermittent palpitations as well. She states sometimes these are associated, sometimes they are not. She denies any nausea, diaphoresis, near syncope. This pain has nothing to do with exertion, only stress. Her daughter reiterates that this happens frequently when she is stressed. - Related Data Allergies/Adverse Reactions: Penicillins Allergy (Verified 09/15/18 15:15) headaches/dizziness levofloxacin [From Levaquin] Adverse Reaction (Verified 09/15/18 16:19) Vomiting Past Medical History - General Information source: Patient - Social History Smoking Status: Unknown if Ever Smoked Family History: Reviewed & Not Pertinent, CAD, Hypertension Patient has suicidal ideation: No Patient has homicidal ideation: No - Past Medical History Cardiac Medical History: Reports: Hx Congestive Heart Failure, Hx Heart Attack, Hx Hypercholesterolemia, Hx Hypertension Denies: Hx Atrial Fibrillation, Hx Coronary Artery Disease - cath 2011, Hx Peripheral Vascular Disease, Hx Pulmonary Embolism, Hx Heart Murmur Pulmonary Medical History: Reports: Hx Pneumonia Denies: Hx Asthma, Hx Bronchitis, Hx COPD, Hx Respiratory Failure, Hx Sleep Apnea, Hx Tuberculosis Neurological Medical History: Denies: Hx Cerebrovascular Accident, Hx Seizures, Hx Parkinson's Disease Endocrine Medical History: Reports: Hx Hyperthyroidism. Denies: Hx Graves' Disease, Hx Hypothyroidism Renal/ Medical History: Denies: Hx End Stage Renal Disease, Hx Kidney Stones, Hx Ovarian Cysts, Hx Peritoneal Dialysis, Hx Pelvic Inflammatory Disease Malignancy Medical History: Denies: Hx Breast Cancer, Hx Cervical Cancer, Hx Leukemia, Hx Lung Cancer, Hx Ovarian Cancer GI Medical History: Reports: Hx Gastroesophageal Reflux Disease. Denies: Hx C rohn's Disease, Hx Hiatal Hernia, Hx Irritable Bowel, Hx Liver Failure, Hx Pancreatitis, Hx Ulcer Musculoskeletal Medical History: Reports Hx Arthritis - osteoporosis ,RLS, De nies Hx Fibromyalgia, Denies Hx Multiple Sclerosis, Denies Hx Muscular Dystrophy, Denies Hx Systemic Lupus Erythematosus Psychiatric Medical History: Denies: Hx Bipolar Disorder, Hx Dementia, Hx Depression, Hx Post Traumatic Stress Disorder, Hx Schizophrenia Traumatic Medical History: Denies: Hx Fractures Infectious Medical History: Denies: Hx HIV Past Surgical History: Reports: Hx Cardiac Surgery - defibrilator 2008 replaced April,., Hx Cholecystectomy, Hx Internal Defibrillator, Hx Pacemaker. Denies: Hx Appendectomy, Hx Bowel Surgery, Hx Section, Hx Colostomy, Hx Coronary Artery Bypass Graft, Hx Gastric Bypass Surgery, Hx Herniorrhaphy, Hx Hysterectomy, Hx Mastectomy, Hx Tonsillectomy, Hx Tubal Ligation - Immunizations Immunizations up to date: Yes Hx Diphtheria, Pertussis, Tetanus Vaccination: No Hx Pneumococcal Vaccination: 08/22/12 Review of Systems - Review of Systems Constitutional: No symptoms reported EENT: No symptoms reported Cardiovascular: See HPI - It is not Respiratory: No symptoms reported Gastrointestinal: No symptoms reported Genitourinary: No symptoms reported Musculoskeletal: No symptoms reported Skin: No symptoms reported Neurological/Psychological: No symptoms reported Physical Exam - Vital signs Vitals: Resp Pulse Ox 27 H 99 09/25/19 16:58 09/25/19 16:58 - Notes Notes: This is a very pleasant 59-year-old female who appears her stated age in no acute distress. She has some mild stuttering, but is awake and alert, cooperative with examiner. Vital signs reviewed, please refer to chart. Head is normocephalic, atraumatic. Pupils equal round, reactive to light. Neck is supple without meningismus. Heart is regular rate and rhythm. Lungs are clear to auscultation bilaterally. Abdomen is soft, nontender, normoactive bowel sounds throughout. Extremities without cyanosis, clubbing. Posterior calves are nontender. Peripheral pulses are equal. Skin is warm and dry. Course - Re-evaluation Re-evalutation: 09/25/19 21:03 Patient presents emergency department for evaluation. She was placed on a monitor technician and had laboratory investigations obtained. She was given aspirin prior to arrival. Her laboratory investigations revealed negative troponins x2. She is currently chest pain-free. Her palpitations have been intermittent but none steady, and she states again that these are not new. At this point I feel comfortable discharging the patient to home. She is to f ollow-up with primary care and cardiology. She is to return to the emergency department with worsening or new concerning symptoms of any sort. - Vital Signs Vital signs: Temp Pulse Resp BP Pulse Ox 98.4 F 22 H 117/56 L 100 09/25/19 17:01 09/25/19 20:01 09/25/19 20:01 09/25/19 19:01 - Laboratory Result Diagrams: 09/25/19 16:57 09/25/19 16:57 Laboratory results interpreted by me: 09/25/19 09/25/19 16:57 16:57 WBC 3.2 L RBC 3.46 L Hgb 9.9 L Hct 31.0 L RDW 15.5 H BUN 21 H Est GFR (MDRD) Non-Af 51 L - Diagnostic Test Radiology reviewed: Reports reviewed Radiology results interpreted by me: 09/25/19 21:04 Chest X-Ray 09/25/19 16:45 IMPRESSION: NO ACUTE RADIOGRAPHIC FINDING IN THE CHEST. - EKG Interpretation by Me Additional EKG results interpreted by me: 09/25/19 21:04 Atrial fib/flutter, ventricular pacing with a rate of 70 bpm. Discharge - Discharge Clinical Impression: Chest pain Qualifiers: Chest pain type: unspecified Qualified Code(s): R07.9 - Chest pain, unspecified Atrial fibrillation Qualifiers: Atrial fibrillation type: longstanding persistent Qualified Code(s): I48.11 - Longstanding persistent atrial fibrillation Condition: Stable Disposition: HOME, SELF-CARE Instructions: Palpitations (Irregular or Rapid Heartrate) ([facility]), Chest Pain of Unclear Cause ([facility]) Additional Instructions: Your work-up here was unremarkable today. There was no signs of damage to your heart on your blood work. Your chest x-ray was unremarkable as well. Please follow-up with your primary care provider and cardiology this week. Return to the emergency department with worsening or new concerning symptoms of any sort. Referrals: RADHA CUEVAS MD [Primary Care Provider] - Follow up as needed
[2019-09-25 21:24] VITALS: BP 111/64
--- NOTE | 2019-09-25 22:01 | EKG REPORT ---
SEVERITY:- ABNORMAL ECG - AFIB/FLUTTER AND VENTRICULAR-PACED RHYTHM : Confirmed by: Kayla Martino MD 25-Sep-2019 22:00:17
== END 2019-09-25 21:41 | disposition home or self-care (01) ==
LOC: ER 16:42
DX: R07.9 Chest pain, unspecified (principal); I48.11 Longstanding persistent atrial fibrillation; I48.92 Unspecified atrial flutter; R00.2 Palpitations; F80.81 Childhood onset fluency disorder; I10 Essential (primary) hypertension; I25.2 Old myocardial infarction; Z95.810 Presence of automatic (implantable) cardiac defibrillator; Z88.0 Allergy status to penicillin
CPT/HCPCS: 36415; 71045; 80053; 82550; 82553; 84484; 85025; 93005; 93010; 99285

== ENCOUNTER → 2019-10-11 | Outpatient (CLI) | payer MEDICARE, MEDICAID ==
--- NOTE | 2019-10-11 14:36 | RADIOLOGY REPORT (SQ) ---
EXAM DESCRIPTION: U/S NON-OB PELVIS TV W/O DOP COMPLETED DATE/TIME: 10/11/2019 8:29 am REASON FOR STUDY: POSTMENOPAUSAL BLEEDING N95.0 POSTMENOPAUSAL BLEEDING COMPARISON: None. TECHNIQUE: Dynamic and static grayscale images acquired of the pelvis via transvaginal approach and recorded on PACS. Additional selected color Doppler and spectral images recorded. LIMITATIONS: None. FINDINGS: UTERUS: Contour normal. No mass. ENDOMETRIAL STRIPE: Thickened endometrium. CERVIX: No nabothian cysts. RIGHT OVARY AND DOPPLER: Ovary not visualized. LEFT OVARY AND DOPPLER: Ovary not visualized. FREE FLUID: None noted. OTHER: No other significant finding. MEASUREMENTS: UTERUS: 8.0 x 3.7 x 3.2 cm. ENDOMETRIAL STRIPE: 11 mm. RIGHT OVARY: Not visualized. LEFT OVARY: Not visualized. IMPRESSION: Thickened endometrium for postmenopausal female. Differential is hyperplasia versus car cinoma. Gynecologic consultation is recommended. TECHNICAL DOCUMENTATION: JOB ID: [id number] 2010 [employer]- All Rights Reserved Rev Reading location - IP/workstation name: [email or web address]
== END ==
LOC: RAD 07:52
PROVIDERS: ATTEND Internal Medicine Geriatric Medicine
DX: N95.0 Postmenopausal bleeding (principal)
CPT/HCPCS: 76830

== ENCOUNTER 2019-10-28 11:22 | Emergency (ER) | payer MEDICARE, MEDICAID ==
--- NOTE | 2019-10-28 11:39 | ER Document Report ---
ED Medical Screen (RME) - General Chief Complaint: Dizziness Stated Complaint: COUGHING UP BLOOD/DIZZY Time Seen by Provider: 10/28/19 11:31 Primary Care Provider: RADHA CUEVAS MD [Primary Care Provider] - Follow up as needed Mode of Arrival: Ambulatory Information source: Patient Notes: 59-year-old female presented to ED for increased cough congestion dizziness weakness. She states she is having some yellow-green sputum. She states she is also having chills. She has a history of CHF with a defibrillator. She is also had a heart valve repair and she is not sure which valve. She states she has other valves that need to be repaired. She states she has had some chest discomfort with shortness of breath.. I have done a cardiac work-up on her with a EKG Stock may TRAVEL OUTSIDE OF THE [place] IN LAST 30 DAYS: No - Related Data Allergies/Adverse Reactions: Penicillins Allergy (Verified 09/15/18 15:15) headaches/dizziness levofloxacin [From Levaquin] Adverse Reaction (Verified 09/15/18 16:19) Vomiting Past Medical History - Social History Family history: Reviewed & Not Pertinent - Past Medical History Cardiac Medical History: Reports: Hx Congestive Heart Failure, Hx Heart Attack, Hx Hypercholesterolemia, Hx Hypertension Denies: Hx Atrial Fibrillation, Hx Coronary Artery Disease - cath 2011, Hx Peripheral Vascular Disease, Hx Pulmonary Embolism, Hx Heart Murmur Pulmonary Medical History: Reports: Hx Pneumonia Denies: Hx Asthma, Hx Bronchitis, Hx COPD, Hx Respiratory Failure, Hx Sleep Apnea, Hx Tuberculosis Neurological Medical History: Denies: Hx Cerebrovascular Accident, Hx Seizures, Hx Parkinson's Disease Endocrine Medical History: Reports: Hx Hyperthyroidism. Denies: Hx Graves' Disease, Hx Hypothyroidism Renal/ Medical History: Denies: Hx End Stage Renal Disease, Hx Kidney Stones, Hx Ovarian Cysts, Hx Peritoneal Dialysis, Hx Pelvic Inflammatory Disease Malignancy Medical History: Denies: Hx Breast Cancer, Hx Cervical Cancer, Hx Leukemia, Hx Lung Cancer, Hx Ovarian Cancer GI Medical History: Reports: Hx Gastroesophageal Reflux Disease. Denies: Hx Crohn's Disease, Hx Hiatal Hernia, Hx Irritable Bowel, Hx Liver Failure, Hx Pancreatitis, Hx Ulcer Musculoskeltal Medical History: Reports Hx Arthritis - osteoporosis ,RLS, Denies Hx Fibromyalgia, Denies Hx Multiple Sclerosis, Denies Hx Muscular Dystrophy, Denies Hx Systemic Lupus Erythematosus Psychiatric Medical History: Denies: Hx Bipolar Disorder, Hx Dementia, Hx Depression, Hx Post Traumatic Stress Disorder, Hx Schizophrenia Traumatic Medical History: Denies: Hx Fractures Infectious Medical History: Denies: Hx HIV Past Surgical History: Reports: Hx Cardiac Surgery - defibrilator 2008 replaced April,., Hx Cholecystectomy, Hx Internal Defibrillator, Hx Pacemaker. Denies: Hx Appendectomy, Hx Bowel Surgery, Hx Section, Hx Colostomy, Hx Coronary Artery Bypass Graft, Hx Gastric Bypass Surgery, Hx Herniorrhaphy, Hx Hysterectomy, Hx Mastectomy, Hx Tonsillectomy, Hx Tubal Ligation - Immunizations Immunizations up to date: Yes Hx Diphtheria, Pertussis, Tetanus Vaccination: No Physical Exam - Vital signs Vitals: Temp Pulse Resp BP Pulse Ox 98.4 F 70 19 97/80 L 100 10/28/19 11:29 10/28/19 11:29 10/28/19 11:29 10/28/19 11:29 10/28/19 11:29 Course - Vital Signs Vital signs: Temp Pulse Resp BP Pulse Ox 98.4 F 70 19 97/80 L 100 10/28/19 11:29 10/28/19 11:29 10/28/19 11:29 10/28/19 11:29 10/28/19 11:29 Doctor's Discharge - Discharge Referrals: RADHA CUEVAS MD [Primary Care Provider] - Follow up as needed
[2019-10-28 12:17] LABS: ABSOLUTE EOSINOPHILS # (AUTO) 0.1 10^3/uL (0.0-0.6); ABSOLUTE LYMPHOCYTES (AUTO) 0.9 10^3/uL (0.5-4.7); ABSOLUTE MONOCYTES (AUTO) 0.4 10^3/uL (0.1-1.4); ABSOLUTE NEUT (AUTO) 1.7 10^3/uL (1.7-8.2); BASOPHILS % (AUTO) 0.9 % (0-2); HEMATOCRIT 26.7 % (36.0-47.0); HEMOGLOBIN 8.7 g/dL (12.0-15.5); MEAN CORPUSCULAR HEMOGLOBIN 29.8 pg (27.0-33.4); MEAN CORPUSCULAR HGB CONC 32.6 g/dL (32.0-36.0); MEAN CORPUSCULAR VOLUME 92 fl (80-97); MONOCYTES % (AUTO) 12.9 % (3-13); PLATELET COUNT 123 10^3/uL (150-450); RED BLOOD COUNT 2.91 10^6/uL (3.72-5.28); RED CELL DISTRIBUTION WIDTH 16.6 % (11.5-14.0); SEGMENTED NEUTROPHILS % (AUTO) 55.2 % (42-78); TOTAL CELLS COUNTED % (AUTO) 100 %; WHITE BLOOD COUNT 3.2 10^3/uL (4.0-10.5)
[2019-10-28 12:30] LABS: ALBUMIN 3.8 g/dL (3.5-5.0); ANION GAP 7 (5-19); BLOOD UREA NITROGEN 19 mg/dL (7-20); CALCIUM 8.6 mg/dL (8.4-10.2); CARBON DIOXIDE 27 mmol/L (22-30); CHLORIDE 105 mmol/L (98-107); GLUCOSE 93 mg/dL (75-110); POTASSIUM 4.8 mmol/L (3.6-5.0)
[2019-10-28 12:31] LABS: ALKALINE PHOSPHATASE 92 U/L (38-126); ASPARTATE AMINO TRANSFERASE 24 U/L (14-36); BILIRUBIN,DIRECT 0.3 mg/dL (0.0-0.4); BILIRUBIN,TOTAL 0.9 mg/dL (0.2-1.3); TOTAL PROTEIN 7.6 g/dL (6.3-8.2)
[2019-10-28 12:55] LABS: NT PRO BNP 921 pg/mL (<125)
[2019-10-28 12:58] LABS: TROPONIN I < 0.012 ng/mL
--- NOTE | 2019-10-28 13:11 | RADIOLOGY REPORT (SQ) ---
EXAM DESCRIPTION: CHEST 2 VIEWS COMPLETED DATE/TIME: 10/28/2019 1:01 pm REASON FOR STUDY: Cough congestion increase fluid history CHF COMPARISON: 09/23/2019 NUMBER OF VIEWS: One view. TECHNIQUE: Single frontal radiographic view of the chest acquired. LIMITATIONS: None. FINDINGS: LUNGS AND PLEURA: No opacities, masses or pneumothorax. No pleural effusion. MEDIASTINUM AND HILAR STRUCTURES: No masses or contour abnormality. HEART AND VASCULATURE: Cardiac enlargement. Vascular congestion. BONES: No acute findings. HARDWARE: Pacemaker defibrillator. OTHER: No other significant finding. IMPRESSION: CARDIAC ENLARGEMENT. VASCULAR CONGESTION. TECHNICAL DOCUMENTATION: JOB ID: [id number] 2010 [employer]- All Rights Reserved Reading location - IP/workstation name: [email or web address]
--- NOTE | 2019-10-28 13:15 | ER Document Report ---
ED General - General Chief Complaint: Cough Stated Complaint: COUGHING UP BLOOD/DIZZY Time Seen by Provider: 10/28/19 11:31 Primary Care Provider: JOSE ENRIQUE PERZE MD [ACTIVE STAFF] - Follow up tomorrow RADHA CUEVAS MD [Primary Care Provider] - Follow up tomorrow Mode of Arrival: Ambulatory Notes: 59-year-old female with congestive heart failure, coronary artery disease, hypertension, hyperlipidemia presents with concern for persistent cough, chest pressure, shortness of breath, weakness. Patient states that she started coughing 4 days prior to arrival. She describes it as a productive cough with blood-streaked sputum. She denies any fever but admits to chills, weakness, na usea without vomiting. Patient is currently on Xarelto for atrial fibrillation. TRAVEL OUTSIDE OF THE [place] IN LAST 30 DAYS: No - HPI Onset: Last week Onset/Duration: Gradual, Persistent, Worse Quality of pain: Other - Tightness Severity: Mild Associated symptoms: Body/muscle aches, Chest pain, Chills, Productive cough, Shortness of breath, Weakness Exacerbated by: Coughing Relieved by: Denies Similar symptoms previously: Yes Recently seen / treated by doctor: Yes - Related Data Allergies/Adverse Reactions: Penicillins Allergy (Verified 09/15/18 15:15) headaches/dizziness levofloxacin [From Levaquin] Adverse Reaction (Verified 09/15/18 16:19) Vomiting Past Medical History - General Information source: Patient - Social History Smoking Status: Never Smoker Frequency of alcohol use: None Drug Abuse: None Lives with: Family Family History: Reviewed & Not Pertinent, CAD, Hypertension Patient has suicidal ideation: No Patient has homicidal ideation: No - Past Medical History Cardiac Medical History: Reports: Hx Congestive Heart Failure, Hx Heart Attack, Hx Hypercholesterolemia, Hx Hypertension Denies: Hx Atrial Fibrillation, Hx Coronary Artery Disease - cath 2011, Hx Peripheral Vascular Disease, Hx Pulmonary Embolism, Hx Heart Murmur Pulmonary Medical History: Reports: Hx Pneumonia Denies: Hx Asthma, Hx Bronchitis, Hx COPD, Hx Respiratory Failure, Hx Sleep Apnea, Hx Tuberculosis Neurological Medical History: Denies: Hx Cerebrovascular Accident, Hx Seizures, Hx Parkinson's Disease Endocrine Medical History: Reports: Hx Hyperthyroidism. Denies: Hx Graves' Disease, Hx Hypothyroidism Renal/ Medical History: Denies: Hx End Stage Renal Disease, Hx Kidney Stones, Hx Ovarian Cysts, Hx Peritoneal Dialysis, Hx Pelvic Inflammatory Disease Malignancy Medical History: Denies: Hx Breast Cancer, Hx Cervical Cancer, Hx Leukemia, Hx Lung Cancer, Hx Ovarian Cancer GI Medical History: Reports: Hx Gastroesophageal Reflux Disease. Denies: Hx Crohn's Disease, Hx Hiatal Hernia, Hx Irritable Bowel, Hx Liver Failure, Hx Pancreatitis, Hx Ulcer Musculoskeletal Medical History: Reports Hx Arthritis - osteoporosis ,RLS, Denies Hx Fibromyalgia, Denies Hx Multiple Sclerosis, Denies Hx Muscular Dystrophy, Denies Hx Systemic Lupus Erythematosus Psychiatric Medical History: Denies: Hx Bipolar Disorder, Hx Dementia, Hx Depression, Hx Post Traumatic Stress Disorder, Hx Schizophrenia Traumatic Medical History: Denies: Hx Fractures Infectious Medical History: Denies: Hx HIV Past Surgical History: Reports: Hx Cardiac Surgery - defibrilator 2008 replaced April,., Hx Cholecystectomy, Hx Internal Defibrillator, Hx Pacemaker. Denies: Hx Appendectomy, Hx Bowel Surgery, Hx Section, Hx Colostomy, Hx Coronary Artery Bypass Graft, Hx Gastric Bypass Surgery, Hx Herniorrhaphy, Hx Hysterectomy, Hx Mastectomy, Hx Tonsillectomy, Hx Tubal Ligation - Immunizations Immunizations up to date: Yes Hx Diphtheria, Pertussis, Tetanus Vaccination: No Hx Pneumococcal Vaccination: 08/22/12 Review of Systems - Review of Systems Notes: REVIEW OF SYSTEMS: CONSTITUTIONAL : Denies fever, chills, or sweats. Denies recent illness. Denies weight loss, recent hospitalizations. EENT: Denies visual changes, eye pain. Denies sore throat, oral lesions, di fficulty swallowing. CARDIOVASCULAR: + chest pain. Denies palpitations. Denies lower extremity [place]. RESPIRATORY: + cough. Denies shortness of breath, wheezing. GASTROINTESTINAL: Denies abdominal pain or distention. + nausea, denies vomiting, or diarrhea. Denies blood in vomitus, stools, or per rectum. Denies black, tarry stools. Denies constipation. GENITOURINARY: Denies difficulty urinating, painful urination, frequency, blood in urine, or vaginal discharge. MUSCULOSKELETAL: Denies back or neck pain or stiffness. Denies joint pain or swelling. SKIN: Denies rash, lesions or sores. HEMATOLOGIC : Denies easy bruising or bleeding. LYMPHATIC: Denies swollen glands. NEUROLOGICAL: Denies confusion or altered mental status. Denies loss of consciousness. Denies dizziness or lightheadedness. + headache. Denies paralysis. Denies problems difficulty with ambulation, slurred speech. Denies sensory loss, numbness, or tingling. Denies seizures. PSYCHIATRIC: Denies anxiety or stress. Denies depression, suicidal ideation, or homicidal ideation. Denies visual or auditory hallucinations. Physical Exam - Vital signs Vitals: Temp Pulse Resp BP Pulse Ox 98.4 F 70 19 97/80 L 100 10/28/19 11:29 10/28/19 11:29 10/28/19 11:29 10/28/19 11:10/28/19 11:29 - Notes Notes: PHYSICAL EXAMINATION: GENERAL: Well-appearing, well-nourished and in no acute distress. HEAD: Atraumatic, normocephalic. EYES: Pupils equal round and reactive to light, extraocular movements intact, conjunctiva are normal. ENT: Nares patent, oropharynx clear without exudates. Moist mucous membranes. NECK: Normal range of motion, supple without lymphadenopathy LUNGS: Breath sounds clear to auscultation bilaterally and equal. No wheezes rales or rhonchi. HEART: Regular rate, irregular rhythm, 2/4 systolic murmur ABDOMEN: Soft, nontender, nondistended abdomen. No guarding, no rebound. No masses appreciated. Female : deferred Musculoskeletal: Normal range of motion, no pitting or edema. No cyanosis. NEUROLOGICAL: Cranial nerves grossly intact. Normal speech, normal gait. Normal sensory, motor exams PSYCH: Normal mood, normal affect. SKIN: Chest scar clean dry and intact. Course - Re-evaluation Re-evalutation: Laboratory 10/28/19 10/28/19 10/28/19 04:02 11:59 11:59 WBC 3.2 L RBC 2.91 L Hgb 8.7 L Hct 26.7 L MCV 92 MCH 29.8 MCHC 32.6 RDW 16.6 H Plt Count 123 L Lymph % (Auto) 28.0 [place] % (Auto) 12.9 Eos % (Auto) 3.0 Baso % (Auto) 0.9 Absolute Neuts (auto) 1.7 Absolute Lymphs (auto) 0.9 Absolute Monos (auto) 0.4 Absolute Eos (auto) 0.1 Absolute Basos (auto) 0.0 Seg Neutrophils % 55.2 D-Dimer Sodium 139.2 Potassium 4.8 Chloride 105 Carbon Dioxide 27 Anion Gap 7 BUN 19 Creatinine 1.14 Est GFR ( Amer) 59 L Est GFR (MDRD) Non-Af 49 L Glucose 93 Calcium 8.6 Total Bilirubin 0.9 Direct Bilirubin 0.3 Neonat Total Bilirubin Not Reportable Neonat Direct Bilirubin Not Reportable Neonat Indirect Bili Not Reportable AST 24 ALT 13 Alkaline Phosphatase 92 Troponin I NT-Pro-B Natriuret Pep Total Protein 7.6 Albumin 3.8 Lipase 121.7 Urine Color YELLOW Urine Appearance CLEAR Urine pH 6.0 Ur Specific [place] 1.013 Urine Protein NEGATIVE Urine Glucose (UA) NEGATIVE Urine Ketones NEGATIVE Urine Blood NEGATIVE Urine Nitrite (Reflex) NEGATIVE Urine Bilirubin NEGATIVE Urine Urobilinogen 4.0 H Leukocyte Esterase Rfl TRACE H Urine RBC (Auto) 1 Urine Bacteria (Auto) TRACE Urine WBC (Reflex) 2 Squamous Epi Cells Auto 3 Urine Mucus (Auto) RARE Urine Ascorbic Acid 20 H 10/28/19 10/28/19 11:59 11:59 WBC RBC Hgb Hct MCV MCH MCHC RDW Plt Count Lymph % (Auto) [place] % (Auto) Eos % (Auto) Baso % (Auto) Absolute Neuts (auto) Absolute Lymphs (auto) Absolute Monos (auto) Absolute Eos (auto) Absolute Basos (auto) Seg Neutrophils % D-Dimer 1.54 H Sodium Potassium Chloride Carbon Dioxide Anion Gap BUN Creatinine Est GFR ( Amer) Est GFR (MDRD) Non-Af Glucose Calcium Total Bilirubin Direct Bilirubin Neonat Total Bilirubin Neonat Direct Bilirubin Neonat Indirect Bili AST ALT Alkaline Phosphatase Troponin I < 0.012 NT-Pro-B Natriuret Pep 921 H Total Protein Albumin Lipase Urine Color Urine Appearance Urine pH Ur Specific [place] Urine Protein Urine Glucose (UA) Urine Ketones Urine Blood Urine Nitrite (Reflex) Urine Bilirubin Urine Urobilinogen Leukocyte Esterase Rfl Urine RBC (Auto) Urine Bacteria (Auto) Urine WBC (Reflex) Squamous Epi Cells Auto Urine Mucus (Auto) Urine Ascorbic Acid Chest X-Ray 10/28/19 11:35 IMPRESSION: CARDIAC ENLARGEMENT. VASCULAR CONGESTION. Chest/Abdomen CTA 10/28/19 14:25 IMPRESSION: 1. Moderate cardiomegaly with reflux of contrast into the hepatic veins, which is suggestive of right heart failure. Clinical correlation is recommended. 2. No pulmonary embolism. Temp Pulse Resp BP Pulse Ox 98.6 F 70 18 113/56 L 97 10/28/19 17:00 10/28/19 17:00 10/28/19 17:01 10/28/19 17:00 10/28/19 17:01 10/28/19 19:18 59-year-old female with congestive heart failure, coronary artery disease, hypertension, hyperlipidemia presents with concern for persistent cough, chest pressure, shortness of breath, weakness. Patient states that she started cou ghing 4 days prior to arrival. She describes it as a productive cough with blood-streaked sputum. She denies any fever but admits to chills, weakness, nausea without vomiting. Patient is currently on Xarelto for atrial fibrillation. Vital signs reviewed and within normal limits. Patient does not appear toxic or dehydrated. She is in no acute distress. Patient has clear breath sounds bilaterally, pitting edema. Chest x-ray shows cardiac enlargement. Because of the patient's persistent shortness of breath, chest pain CTA was obtained which showed no evidence of pulmonary embolism but did show moderate cardiomegaly. I did speak to the patient regarding admission who was initially agreeable and I did speak to Dr. Cuevas who did accept the patient. While patient was waiting to get a bed assignment she has decided that she needs to leave to care for her 12-year-old son. Daughter is at the bedside and states that she will take her to her primary care physician and liquefaction supervisor tomorrow. Patient left AGAINST MEDICAL ADVICE. After performing a Medical Screening Examination, I spoke with the patient at length in regards to leaving the hospital against medical advice. I do not believe the patient should leave but the patient is alert oriented x4, understands the risks and benefits of staying and leaving including disability and . Pt understands that he can return at any time for further care and is more than welcome to do so. Pt verbalizes this understanding. - Vital Signs Vital signs: Temp Pulse Resp BP Pulse Ox 98.6 F 70 18 113/56 L 97 10/28/19 17:00 10/28/19 17:00 10/28/19 17:01 10/28/19 17:00 10/28/19 17:01 - Laboratory Result Diagrams: 10/28/19 11:59 10/28/19 11:59 Laboratory results interpreted by me: 10/28/19 10/28/19 10/28/19 04:02 11:59 11:59 WBC 3.2 L RBC 2.91 L Hgb 8.7 L Hct 26.7 L RDW 16.6 H Plt Count 123 L D-Dimer Est GFR ( Amer) 59 L Est GFR (MDRD) Non-Af 49 L NT-Pro-B Natriuret Pep Urine Urobilinogen 4.0 H Leukocyte Esterase Rfl TRACE H Urine Ascorbic Acid 20 H 10/28/19 10/28/19 11:59 11:59 WBC RBC Hgb Hct RDW Plt Count D-Dimer 1.54 H Est GFR ( Amer) Est GFR (MDRD) Non-Af NT-Pro-B Natriuret Pep 921 H Urine Urobilinogen Leukocyte Esterase Rfl Urine Ascorbic Acid - Diagnostic Test Radiology reviewed: Image reviewed, Reports reviewed Discharge - Discharge Clinical Impression: Congestive heart failure with cardiomyopathy, Cough Chest pain Qualifiers: Chest pain type: unspecified Qualified Code(s): R07.9 - Chest pain, unspecified Condition: Fair Disposition: AGAINST MEDICAL ADVICE Instructions: Chest Pain of Unclear Cause ([facility]), Dyspnea, Nonspecific ([facility]) Referrals: RADHA CUEVAS MD [Primary Care Provider] - Follow up tomorrow JOSE ENRIQUE PEREZ MD [ACTIVE STAFF] - Follow up tomorrow
[2019-10-28] MEDS ORDERED: FUROSEMIDE INJ/PF 20 MG/2 ML SDV IV ONE (14:24)
[2019-10-28 14:29] LABS: APPEARANCE,URINE CLEAR; BILIRUBIN,URINE NEGATIVE (NEGATIVE); COLOR,URINE YELLOW; GLUCOSE, URINE NEGATIVE (NEGATIVE); KETONES,URINE NEGATIVE (NEGATIVE); PROTEIN,URINE NEGATIVE (NEGATIVE); URINE SPECIFIC GRAVITY 1.013
--- NOTE | 2019-10-28 16:01 | RADIOLOGY REPORT (SQ) ---
EXAM DESCRIPTION: CTA CHEST COMPLETED DATE/TIME: 10/28/2019 2:40 pm REASON FOR STUDY: Shortness of breath, elevated d-dimer COMPARISON: Chest radiograph same date. TECHNIQUE: CT scan of the chest performed using helical scanning technique with dynamic intravenous contrast injection. Images reviewed with lung, soft tissue and bone windows. Reconstructed coronal and sagittal MPR images reviewed. Additional 3 dimensional post-processing performed to develop Maximal Intensity Projection images (CA P). All images stored on PACS. All CT scanners at this facility use dose modulation, iterative reconstruction, and/or weight based d osing when appropriate to reduce radiation dose to as low as reasonably achievable (ALARA). [facility]: Dose Right [facility]: CareDose [facility]: Dose Right [facility]: Teradose 4D [facility]: Breathe[employer] Vac Services CONTRAST TYPE AND DOSE: contrast/concentration: Isovue 350.00 mg/ml; Total Contrast Delivered: 72.0 ml; Total Saline Delivered: 80.0 ml Contrast bolus optimized for the pulmonary arteries. Not diagnostic for the aorta. RENAL FUNCTION: GFR > 60. RADIATION DOSE: CT Rad equipment meets quality standard of care and radiation dose reduction techniq ues were employed. CTDIvol: 22.3 - 33.6 mGy. DLP: 1202 mGy-cm. . LIMITATIONS: None. FINDINGS: LUNGS AND PLEURA: No masses, infiltrates, or pneumothorax. No pleural effusions or pleura l calcifications. AORTA AND GREAT VESSELS: No aneurysm. Contrast bolus not optimized for the aorta. HEART: There is moderate cardiomegaly. No pericardial effusion. Reflux of contrast into the hepatic veins is noted. No significant coronary artery calcifications. PULMONARY ARTERIES: No emboli visualized in the main pulmonary arteries or the segmental branches. HILAR AND MEDIASTINAL STRUCTURES: No identified masses or abnormal nodes. HARDWARE: Left pacemaker with intact lead wires. UPPER ABDOMEN: No significant findings. Limited exam. THYROID AND OTHER SOFT TISSUES: No masses. No adenopathy. BONES: No acute or significant finding. 3D MIPS: Confirm above findings. OTHER: No other significant finding. IMPRESSION: 1. Moderate cardiomegaly with reflux of contrast into the hepatic veins, which is suggestive of right heart failure. Clinical correlation is recommended. 2. No pulmonary embolism. COMMENT: Quality ID # [id number]: Final reports with documentation of one or more dose reduction techniques (e.g., Automated exposure control, adjustment of the mA and/or kV according to patient size, use of iterative reconstruction technique) TECHNICAL DOCUMENTATION: JOB ID: [id number] 2010 [employer]- All Rights Reserved Reading location - IP/workstation name: [email or web address]
[2019-10-28] MEDS ORDERED: MORPHINE SULFATE 10 MG/ML INJ IV ONE (16:09)
[2019-10-28] MEDS ORDERED: ASPIRIN 81 MG TABLET, CHEWABLE PO ONE (16:09)
[2019-10-28] MEDS ORDERED: ONDANSETRON HCL INJ/PF 4 MG/2 ML SDV IV ONE (16:09)
[2019-10-28] MEDS ORDERED: FUROSEMIDE 20 MG TABLET PO ONE (16:12)
--- NOTE | 2019-10-28 16:16 | EKG REPORT ---
SEVERITY:- ABNORMAL ECG - VENTRICULAR-PACED RHYTHM : Confirmed by: Alexandro Qureshi MD 28-Oct-2019 16:15:59
[2019-10-28 17:40] VITALS: BP 113/56
== END 2019-10-28 17:28 | disposition left against medical advice (07) ==
LOC: ER 11:22 → EH 16:27 → UNDOADMIN 16:27
DX: R04.2 Hemoptysis (principal); I11.0 Hypertensive heart disease with heart failure; I50.9 Heart failure, unspecified; I42.9 Cardiomyopathy, unspecified; I25.2 Old myocardial infarction; R07.89 Other chest pain; R06.02 Shortness of breath; R68.83 Chills (without fever); R11.0 Nausea; R51 Headache; R53.1 Weakness; M79.10 Myalgia, unspecified site; I25.10 Atherosclerotic heart disease of native coronary artery without angina pectoris; I48.91 Unspecified atrial fibrillation; Z79.01 Long term (current) use of anticoagulants; Z95.810 Presence of automatic (implantable) cardiac defibrillator; Z88.0 Allergy status to penicillin; Z53.29 Procedure and treatment not carried out because of patient's decision for other reasons
CPT/HCPCS: 93005; 99284; 96374; 36415; 87086; 83690; 85025; 80053; 81001; 84484; 85379; 83880; 71046; 71275; 93010; J1940

== ENCOUNTER 2019-10-31 11:41 | Observation (INO) | payer MEDICARE, MEDICAID ==
--- NOTE | 2019-10-31 12:23 | ER Document Report ---
ED Medical Screen (RME) - General Chief Complaint: Abnormal Lab Results Stated Complaint: ABNORMAL LABS Time Seen by Provider: 10/31/19 12:13 Primary Care Provider: RADHA CUEVAS MD [Primary Care Provider] - Follow up as needed Mode of Arrival: Ambulatory Information source: Patient Notes: 59-year-old female returns to the hospital for reports that she needs a blood transfusion. She reports she went to Dr. Franco's office today for recheck and Dr Sanchez contacted Dr. Cuevas, her primary care provider, because her labs were low. They reviewed her labs from her visit the other day and told her to come back to the hospital because she needed a blood transfusion. Patient reports history of CHF. Patient reports she did have some blood in her stool l ast week but none recently. She reports she was supposed to be admitted this past Tuesday but she had to leave because she did not have anybody to take care of her son. Patient is alert and oriented reports she still has fluid around her heart. Respiratory rate even unlabored. I have greeted and performed a rapid initial assessment of this patient. A comprehensive ED assessment and evaluation of the patient, analysis of test results and completion of the medical decision making process will be conducted by additional ED providers. TRAVEL OUTSIDE OF THE [place] IN LAST 30 DAYS: No - Related Data Allergies/Adverse Reactions: Penicillins Allergy (Verified 10/31/19 12:15) headaches/dizziness levofloxacin [From Levaquin] Adverse Reaction (Verified 10/31/19 12:15) Vomiting Past Medical History - Social History Family history: Reviewed & Not Pertinent - Past Medical History Cardiac Medical History: Reports: Hx Congestive Heart Failure, Hx Heart Attack, Hx Hypercholesterolemia, Hx Hypertension Denies: Hx Atrial Fibrillation, Hx Coronary Artery Disease - cath 2011, Hx Peripheral Vascular Disease, Hx Pulmonary Embolism, Hx Heart Murmur Pulmonary Medical History: Reports: Hx Pneumonia Denies: Hx Asthma, Hx Bronchitis, Hx COPD, Hx Respiratory Failure, Hx Sleep Apnea, Hx Tuberculosis Neurological Medical History: Denies: Hx Cerebrovascular Accident, Hx Seizures, Hx Parkinson's Disease Endocrine Medical History: Reports: Hx Hyperthyroidism. Denies: Hx Graves' Disease, Hx Hypothyroidism Renal/ Medical History: Denies: Hx End Stage Renal Disease, Hx Kidney Stones, Hx Ovarian Cysts, Hx Peritoneal Dialysis, Hx Pelvic Inflammatory Disease Malignancy Medical History: Denies: Hx Breast Cancer, Hx Cervical Cancer, Hx Leukemia, Hx Lung Cancer, Hx Ovarian Cancer GI Medical History: Reports: Hx Gastroesophageal Reflux Disease. Denies: Hx Crohn's Disease, Hx Hiatal Hernia, Hx Irritable Bowel, Hx Liver Failure, Hx Pancreatitis, Hx Ulcer Musculoskeltal Medical History: Reports Hx Arthritis - osteoporosis ,RLS, Denies Hx Fibromyalgia, Denies Hx Multiple Sclerosis, Denies Hx Muscular Dystrophy, Denies Hx Systemic Lupus Erythematosus Psychiatric Medical History: Denies: Hx Bipolar Disorder, Hx Dementia, Hx Depression, Hx Post Traumatic Stress Disorder, Hx Schizophrenia Traumatic Medical History: Denies: Hx Fractures Infectious Medical History: Denies: Hx HIV Past Surgical History: Reports: Hx Cardiac Surgery - defibrilator 2008 replaced April,., Hx Cholecystectomy, Hx Internal Defibrillator, Hx Pacemaker. Denies: Hx Appendectomy, Hx Bowel Surgery, Hx Section, Hx Colostomy, Hx Coronary Artery Bypass Graft, Hx Gastric Bypass Surgery, Hx Herniorrhaphy, Hx Hysterectomy, Hx Mastectomy, Hx Tonsillectomy, Hx Tubal Ligation - Immunizations Immunizations up to date: Yes Hx Diphtheria, Pertussis, Tetanus Vaccination: No Doctor's Discharge - Discharge Referrals: RADHA CUEVAS MD [Primary Care Provider] - Follow up as needed
[2019-10-31 12:57] LABS: ABSOLUTE BASOPHILS # (AUTO) 0.1 10^3/uL (0.0-0.2); ABSOLUTE EOSINOPHILS # (AUTO) 0.1 10^3/uL (0.0-0.6); ABSOLUTE LYMPHOCYTES (AUTO) 0.9 10^3/uL (0.5-4.7); ABSOLUTE MONOCYTES (AUTO) 0.3 10^3/uL (0.1-1.4); ABSOLUTE NEUT (AUTO) 1.5 10^3/uL (1.7-8.2); BASOPHILS % (AUTO) 2.1 % (0-2); EOSINOPHILS % (AUTO) 3.4 % (0-6); HEMATOCRIT 25.4 % (36.0-47.0); HEMOGLOBIN 8.1 g/dL (12.0-15.5); LYMPHOCYTES % (AUTO) 32.7 % (13-45); MEAN CORPUSCULAR HGB CONC 31.9 g/dL (32.0-36.0); MEAN CORPUSCULAR VOLUME 91 fl (80-97); MONOCYTES % (AUTO) 10.9 % (3-13); PLATELET COUNT 137 10^3/uL (150-450); RED BLOOD COUNT 2.79 10^6/uL (3.72-5.28); RED CELL DISTRIBUTION WIDTH 15.8 % (11.5-14.0); SEGMENTED NEUTROPHILS % (AUTO) 50.9 % (42-78); TOTAL CELLS COUNTED % (AUTO) 100 %; WHITE BLOOD COUNT 2.9 10^3/uL (4.0-10.5)
[2019-10-31 12:59] LABS: APPEARANCE,URINE CLEAR; BILIRUBIN,URINE NEGATIVE (NEGATIVE); COLOR,URINE YELLOW; GLUCOSE, URINE NEGATIVE (NEGATIVE); KETONES,URINE NEGATIVE (NEGATIVE); LEUKOCYTE ESTERASE,URINE TRACE (NEGATIVE); NITRITE,URINE NEGATIVE (NEGATIVE); PROTEIN,URINE NEGATIVE (NEGATIVE); URINE SPECIFIC GRAVITY 1.019
--- NOTE | 2019-10-31 13:05 | RADIOLOGY REPORT (SQ) ---
EXAM DESCRIPTION: CHEST 2 VIEWS COMPLETED DATE/TIME: 10/31/2019 12:54 pm REASON FOR STUDY: hx chf COMPARISON: 10/28/2019 EXAM PARAMETERS: NUMBER OF VIEWS: two views TECHNIQUE: Digital Frontal and Lateral radiographic views of the chest acquired. RADIATION DOSE: NA LIMITATIONS: none FINDINGS: LUNGS AND PLEURA: No opacities, masses or pneumothorax. No pleural effusion. MEDIASTINUM AND HILAR STRUCTURES: No masses or contour abnormalities. HEART AND VASCULAR STRUCTURES: Heart remains enlarged. No failure. BONES: No acute findings. HARDWARE: Hardware is unchanged. Sternotomy wires are in place along with battery pack and leads. OTHER: No other significant finding. IMPRESSION: Cardiomegaly. No acute findings in the chest. TECHNICAL DOCUMENTATION: JOB ID: [id number] 2010 [employer]- All Rights Reserved Reading location - IP/workstation name: [email or web address]
[2019-10-31 13:06] LABS: ADD MANUAL MICROSCOPIC YES; BACTERIA,URINE TRACE /HPF; RBC,URINE 0-1 /HPF
[2019-10-31 13:15] LABS: ALBUMIN 3.7 g/dL (3.5-5.0); ALKALINE PHOSPHATASE 84 U/L (38-126); ANION GAP 6 (5-19); ASPARTATE AMINO TRANSFERASE 24 U/L (14-36); BILIRUBIN,DIRECT 0.1 mg/dL (0.0-0.4); BILIRUBIN,TOTAL 0.7 mg/dL (0.2-1.3); BLOOD UREA NITROGEN 22 mg/dL (7-20); CALCIUM 8.8 mg/dL (8.4-10.2); CARBON DIOXIDE 26 mmol/L (22-30); CHLORIDE 108 mmol/L (98-107); GLUCOSE 92 mg/dL (75-110); POTASSIUM 4.8 mmol/L (3.6-5.0); TOTAL PROTEIN 7.1 g/dL (6.3-8.2)
[2019-10-31 13:45] LABS: INTERNATIONAL RATION (INR) 1.85; PROTHROMBIN TIME 21.6 SEC (11.4-15.4)
[2019-10-31 13:46] LABS: PARTIAL THROMBOPLASTIN TIME 37.2 SEC (23.5-35.8)
--- NOTE | 2019-10-31 16:06 | ER Document Report ---
ED General - General Chief Complaint: Abnormal Lab Results Stated Complaint: ABNORMAL LABS Time Seen by Provider: 10/31/19 12:13 Primary Care Provider: RADHA CUEVAS MD [Primary Care Provider] - Follow up as needed Mode of Arrival: Ambulatory TRAVEL OUTSIDE OF THE [place] IN LAST 30 DAYS: No - HPI Notes: Pt is a 59yo female with a h/o A-fib (on xarelto), congestive heart failure, coronary artery disease, hypertension, hyperlipidemia who presents c/o 2 weeks worth of fatigue, shortness of breath, and generalized weakness. She states she was seen and admitted on the for similar complaints. 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 Patient presented to her family doctor yesterday for follow-up, and was found to have low hemoglobin. She states she was sent home with fiber and told to follow-up on Tuesday for recheck. Of note, patient states that she had one episo de of spontaneous vaginal bleeding 3 weeks ago which filled up 2 pads. She was seen by her OB, and underwent endometrial biopsy which reportedly came back without concern. Patient had a follow-up with her OB earlier today, and was told to present to the ED for further evaluation and possible transfusion due to low hemoglobin. Currently, patient continues to endorse mild shortness of breath, weakness, intermittent chest tightness, and fatigue. These are all the same symptoms over the past week or so. Patient notes that her stool is black, but that she has been taking an iron supplement. She has noticed some epigastric soreness. She also reports possible history of intermittent hematuria, as well as some upper respiratory symptoms including mild productive cough with blood streaked sputum (ongoing), congestion, and headache. She has been taking a multivitamin and Coricidin with mild relief. Denies any , fever, neck pain, chest pain, palpitations, syncope, wheeze, dyspnea, nausea/vomiting/diarrhea, urinary retention, dysuria, hematuria, loss of control of bowel or bladder, numbness/tingling, saddle anesthesia, muscle paralysis/weakness, or rash. - Related Data Allergies/Adverse Reactions: Penicillins Allergy (Verified 10/31/19 12:15) headaches/dizziness levofloxacin [From Levaquin] Adverse Reaction (Verified 03/11/20 12:15) Vomiting Past Medical History - General Information source: Patient - Social History Smoking Status: Never Smoker Family History: Reviewed & Not Pertinent, CAD, Hypertension Patient has suicidal ideation: No Patient has homicidal ideation: No - Past Medical History Cardiac Medical History: Reports: Hx Congestive Heart Failure, Hx Heart Attack, Hx Hypercholesterolemia, Hx Hypertension Denies: Hx Atrial Fibrillation, Hx Coronary Artery Disease - cath 2011, Hx Peripheral Vascular Disease, Hx Pulmonary Embolism, Hx Heart Murmur Pulmonary Medical History: Reports: Hx Pneumonia Denies: Hx Asthma, Hx Bronchitis, Hx COPD, Hx Respiratory Failure, Hx Sleep Apnea, Hx Tuberculosis Neurological Medical History: Denies: Hx Cerebrovascular Accident, Hx Seizures, Hx Parkinson's Disease Endocrine Medical History: Reports: Hx Hyperthyroidism. Denies: Hx Graves' Disease, Hx Hypothyroidism Renal/ Medical History: Denies: Hx End Stage Renal Disease, Hx Kidney Stones, Hx Ovarian Cysts, Hx Peritoneal Dialysis, Hx Pelvic Inflammatory Disease Malignancy Medical History: Denies: Hx Breast Cancer, Hx Cervical Cancer, Hx Leukemia, Hx Lung Cancer, Hx Ovarian Cancer GI Medical History: Reports: Hx Gastroesophageal Reflux Disease. Denies: Hx Crohn's Disease, Hx Hiatal Hernia, Hx Irritable Bowel, Hx Liver Failure, Hx Pancreatitis, Hx Ulcer Musculoskeletal Medical History: Reports Hx Arthritis - osteoporosis ,RLS, Denies Hx Fibromyalgia, Denies Hx Multiple Sclerosis, Denies Hx Muscular Dystrophy, Denies Hx Systemic Lupus Erythematosus Psychiatric Medical History: Denies: Hx Bipolar Disorder, Hx Dementia, Hx Depression, Hx Post Traumatic Stress Disorder, Hx Schizophrenia Traumatic Medical History: Denies: Hx Fractures Infectious Medical History: Denies: Hx HIV Past Surgical History: Reports: Hx Cardiac Surgery - defibrilator 2008 replaced April,., Hx Cholecystectomy, Hx Internal Defibrillator, Hx Pacemaker. Denies: Hx Appendectomy, Hx Bowel Surgery, Hx Section, Hx Colostomy, Hx Coronary Artery Bypass Graft, Hx Gastric Bypass Surgery, Hx Herniorrhaphy, Hx Hysterectomy, Hx Mastectomy, Hx Tonsillectomy, Hx Tubal Ligation - Immunizations Immunizations up to date: Yes Hx Diphtheria, Pertussis, Tetanus Vaccination: No Hx Pneumococcal Vaccination: 08/22/12 Review of Systems - Review of Systems -: Yes All other systems reviewed and negative Physical Exam - Vital signs Vitals: Temp Pulse Resp BP Pulse Ox 98.7 F 70 20 134/62 H 99 10/31/19 12:10 10/31/19 12:10 10/31/19 12:10 10/31/19 12:10 10/31/19 12:10 - Notes Notes: PHYSICAL EXAMINATION: GENERAL: Well-appearing, well-nourished and in no acute distress. A&Ox4. Answers questions appropriately. Very pleasant. HEAD: Atraumatic, normocephalic. EYES: Pupils equal round and reactive to light, extraocular movements intact, sclera anicteric, conjunctiva are normal. ENT: Nares patent and without discharge. oropharynx clear without exudates. No tonsilar hypertrophy or erythema. Moist mucous membranes. NECK: Normal range of motion, supple without lymphadenopathy LUNGS: Breath sounds clear to auscultation bilaterally and equal. No wheezes rales or rhonchi. HEART: Regular rate and rhythm without murmurs, rubs, gallops. ABDOMEN: Soft, nondistended abdomen. No guarding, no rebound. Normal bowel sounds present. No CVA tenderness bilaterally. + mild epigastric tenderness. No RUQ tenderness. Rectal (performed by female PA-S, Cam): black stool, + guiac. Musculoskeletal: FROM to passive/active. Strength 5+/5. Extremities: 2+ pitting b/l LE's. Capillary refill less than 3 seconds. NEUROLOGICAL: Cranial nerves grossly intact. Normal speech, normal gait. PSYCH: Normal mood, normal affect. SKIN: Warm, Dry, normal turgor, no rashes or lesions noted. Course - Re-evaluation Re-evalutation: 10/31/19 16:[address] Cuevas and left. 10/31/19 17:24 Patient is an afebrile, well-hydrated 59-year-old female who presents with henry spected upper GI bleed with downtrending hemoglobin. Vitals are currently except without segment tachycardia, tachypnea, hypoxia. PE is otherwise unremarkable. Patient is nontoxic-appearing and is tolerating p.o. without difficulty. See labs. I did review with Dr. Cuevas who recommends 2 units of blood and admit under op status to telemetry floor. Dr. Martino has also been in to evaluate the patient. Patient is in agreement with this plan. - Vital Signs Vital signs: Temp Pulse Resp BP Pulse Ox 98.7 F 70 20 134/62 H 99 10/31/19 12:10 10/31/19 12:10 10/31/19 12:10 10/31/19 12:10 10/31/19 12:10 - Laboratory Result Diagrams: 10/31/19 12:25 10/31/19 12:25 Laboratory results interpreted by me: 10/31/19 10/31/19 10/31/19 12:25 12:25 12:25 WBC 2.9 L RBC 2.79 L Hgb 8.1 L Hct 25.4 L MCHC 31.9 L RDW 15.8 H Plt Count 137 L Baso % (Auto) 2.1 H Absolute Neuts (auto) 1.5 L PT APTT Chloride 108 H BUN 22 H Est GFR (MDRD) Non-Af 52 L NT-Pro-B Natriuret Pep 1270 H Urine Blood Urine Urobilinogen Ur Leukocyte Esterase Urine Ascorbic Acid 10/31/19 10/31/19 12:25 13:25 WBC RBC Hgb Hct MCHC RDW Plt Count Baso % (Auto) Absolute Neuts (auto) PT 21.6 H APTT 37.2 H Chloride BUN Est GFR (MDRD) Non-Af NT-Pro-B Natriuret Pep Urine Blood MODERATE H Urine Urobilinogen 4.0 H Ur Leukocyte Esterase TRACE H Urine Ascorbic Acid 40 H Discharge - Discharge Clinical Impression: Upper GI bleed Condition: Stable Disposition: ADMITTED OBSERVATION Admitting Provider: Tevin Unit Admitted: Telemetry Referrals: RADHA CUEVAS MD [Primary Care Provider] - Follow up as needed
[2019-10-31] MEDS ORDERED: NORMAL SALINE 250 ML IV PRN (17:23)
--- NOTE | 2019-10-31 17:28 | EKG REPORT ---
SEVERITY:- ABNORMAL ECG - VENTRICULAR-PACED COMPLEXES NONSPECIFIC IVCD WITH LAD LVH WITH SECONDARY REPOLARIZATION ABNORMALITY : Confirmed by: Bree Zheng 31-Oct-2019 17:27:44
[2019-10-31] MEDS ORDERED: PANTOPRAZOLE SODIUM 40 MG VIAL IV ONE (20:00)
[2019-11-01 06:24] LABS: ABSOLUTE EOSINOPHILS # (AUTO) 0.1 10^3/uL (0.0-0.6); ABSOLUTE LYMPHOCYTES (AUTO) 0.9 10^3/uL (0.5-4.7); ABSOLUTE MONOCYTES (AUTO) 0.3 10^3/uL (0.1-1.4); ABSOLUTE NEUT (AUTO) 1.4 10^3/uL (1.7-8.2); BASOPHILS % (AUTO) 0.7 % (0-2); EOSINOPHILS % (AUTO) 3.2 % (0-6); HEMATOCRIT 28.7 % (36.0-47.0); HEMOGLOBIN 9.4 g/dL (12.0-15.5); LYMPHOCYTES % (AUTO) 33.4 % (13-45); MEAN CORPUSCULAR HEMOGLOBIN 29.3 pg (27.0-33.4); MEAN CORPUSCULAR HGB CONC 32.8 g/dL (32.0-36.0); MEAN CORPUSCULAR VOLUME 89 fl (80-97); MONOCYTES % (AUTO) 10.9 % (3-13); PLATELET COUNT 109 10^3/uL (150-450); RED BLOOD COUNT 3.21 10^6/uL (3.72-5.28); RED CELL DISTRIBUTION WIDTH 14.8 % (11.5-14.0); SEGMENTED NEUTROPHILS % (AUTO) 51.8 % (42-78); TOTAL CELLS COUNTED % (AUTO) 100 %; WHITE BLOOD COUNT 2.8 10^3/uL (4.0-10.5)
[2019-11-01 06:50] LABS: ALBUMIN 3.3 g/dL (3.5-5.0); ALKALINE PHOSPHATASE 79 U/L (38-126); ANION GAP 8 (5-19); ASPARTATE AMINO TRANSFERASE 21 U/L (14-36); BILIRUBIN,DIRECT 0.3 mg/dL (0.0-0.4); BILIRUBIN,TOTAL 2.1 mg/dL (0.2-1.3); BLOOD UREA NITROGEN 21 mg/dL (7-20); CALCIUM 8.6 mg/dL (8.4-10.2); CARBON DIOXIDE 25 mmol/L (22-30); CHLORIDE 106 mmol/L (98-107); GLUCOSE 85 mg/dL (75-110); POTASSIUM 4.3 mmol/L (3.6-5.0)
[2019-11-01 06:55] LABS: TOTAL PROTEIN 6.7 g/dL (6.3-8.2)
[2019-11-01] MEDS: PANTOPRAZOLE SODIUM 40 MG VIAL IV SCH ×2 (08:34→21:22)
[2019-11-01] MEDS ORDERED: (PENDING PHARMACY ID) (Clonazepam [Klonopin] 0.5 MG) PO PRN (09:46)
[2019-11-01] MEDS ORDERED: ACETAMINOPHEN 325 MG TABLET PO PRN (09:46)
[2019-11-01] MEDS ORDERED: CLONAZEPAM 1 MG TABLET PO PRN (09:56)
[2019-11-01] MEDS ORDERED: (PENDING PHARMACY ID) (Esomeprazole Mag Trihydrate [Nexium] 40 MG) PO SCH (10:00)
[2019-11-01] MEDS: LOSARTAN POTASSIUM 25 MG TABLET PO SCH ×2 (10:20→21:22)
[2019-11-01] MEDS: FUROSEMIDE 40 MG TABLET PO SCH ×2 (10:20→17:37)
[2019-11-01] MEDS: METOPROLOL TARTRATE 25 MG TABLET PO SCH ×2 (10:23→21:21)
[2019-11-01] MEDS: POTASSIUM CHLORIDE 10 MEQ TABLET.ER PO SCH (10:23)
[2019-11-01] MEDS: FERROUS SULFATE 325 MG TABLET PO SCH ×2 (10:23→17:37)
[2019-11-01] MEDS: MULTIVITAMIN TABLET PO SCH (10:23)
[2019-11-01] MEDS ORDERED: METOPROLOL TARTRATE 50 MG TABLET PO SCH (10:30)
[2019-11-01] MEDS ORDERED: PANTOPRAZOLE SODIUM 40 MG TABLET.DR PO SCH (10:30)
--- NOTE | 2019-11-01 14:39 | PDOC H&P ---
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 Franco where he was found to be diaphoretic with feeling of unwell, chest tightness, shortness of breath, and generalized weakness. She denied any fever or chills. She reported occasional minimally productive cough, chest congestion, and headache. Her initial ED evaluation was significant hemoglobin of 8.1 gm/dl. She is currently undergoing evaluation for post menopausal vaginal bleeding. She reported issue of rectal bleeding but no recurrent event. Her stool is tarry but patient reported current therapy with oral ferrous sulfate and ascorbic acid. She reported slight epigastric region discomfort and currently on xarelto anticoagulation therapy for chronic Atrial fibrillation management. She was advised hospitalization for further evaluation and management. She reported completion of EGD and colonoscopy by Dr. Mireles and at [facility]. Her morbidities are as listed below. Past Medical History Cardiac Medical History: Reports: Congestive Heart Failure, Myocardial Infarction, Hyperlipidema, Hypertension Denies: Atrial Fibrillation, Coronary Artery Disease - cath 2011, Peripheral Vascular Disease, Pulmonary Embolism, Heart Murmur Pulmonary Medical History: Reports: Pneumonia Denies: Asthma, Bronchitis, Chronic Obstructive Pulmonary Disease (COPD), Respiratory Failure, Sleep Apnea, Tuberculosis Neurological Medical History: Denies: Seizures Endocrine Medical History: Reports: Hyperthyroidism Denies: Hypothyroidism Renal/ Medical History: Denies: End Stage Renal Disease Malignancy Medical History: Denies: Breast Cancer, Cervical Cancer, Leukemia, Lung Cancer, Ovarian Cancer GI Medical History: Reports: Gastroesophageal Reflux Disease Denies: Crohn's Disease, Hiatal Hernia Musculoskeltal Medical History: Reports: Arthritis - osteoporosis ,RLS Denies: Fibromyalgia Psychiatric Medical History: Denies: Bipolar Disorder, Dementia, Depression, Post Traumatic Stress Disorder Hematology: Denies: Anemia, Hemophilia, Sickle Cell Disease Infectious Medical History: Denies: HIV Past Surgical History Past Surgical History: Reports: Cholecystectomy, Internal Defibrillator, Pacemaker Denies: Amputation, Appendectomy, Section, Colostomy, Coronary Artery Bypass Graft, Gastric Bypass Surgery, Herniorrhaphy, Hysterectomy, Mastectomy, Tonsillectomy, Tubal Ligation Social History Smoking Status: Never Smoker Frequency of Alcohol Use: None Hx Recreational Drug Use: No Drugs: None Hx Prescription Drug Abuse: No Family History Family History: Reviewed & Not Pertinent, CAD, Hypertension Parental Family History Reviewed: Yes Children Family History Reviewed: Yes Sibling(s) Family History Reviewed.: Yes Medication/Allergy Home Medications: Potassium Chloride [Klor-Con 10 Meq Tablet ER] 20 meq PO DAILY 12/24/11 Rivaroxaban [Xarelto 10 mg Tablet] 20 mg PO QHS 01/22/16 Esomeprazole Mag Trihydrate [Nexium] 40 mg PO DAILY #30 capsule. 01/23/16 Ferrous Sulfate [Ferrousul] 325 mg PO BID 04/30/18 Acetaminophen [Pain Relief] 650 mg PO Q6HP PRN 10/31/19 Aspirin [Adult Aspirin Regimen] 81 mg PO DAILY 10/31/19 Clonazepam [Klonopin] 0.5 mg PO BIDP PRN 10/31/19 Furosemide [Lasix 40 mg Tablet] 40 mg PO BID 10/31/19 Guaifenesin/Dextromethorphan [Coricidin Hbp Chest Sahil-Cough] 1 tab PO TID 10/31/19 Losartan Potassium [Cozaar 25 mg Tablet] 25 mg PO BID 10/31/19 Metoprolol Tartrate [Lopressor 50 mg Tablet] 25 mg PO Q12 10/31/19 Multivit-Min/Iron/Folic/Lutein [Centrum Silver Women Tablet] 1 tab PO DAILY 10/31/19 Allergies/Adverse Reactions: Penicillins Allergy (Verified 10/31/19 12:15) headaches/dizziness levofloxacin [From Levaquin] Adverse Reaction (Verified 10/31/19 12:15) Vomiting Review of Systems Constitutional: PRESENT: weakness. ABSENT: chills, fever(s), headache(s), weight gain, weight loss Eyes: ABSENT: visual disturbances Ears: ABSENT: hearing changes Nose, Mouth, and Throat: ABSENT: headache(s), vertigo Cardiovascular: PRESENT: chest pain - tightness discomfort. ABSENT: dyspnea on exertion, edema, orthropnea, palpitations Respiratory: PRESENT: cough - with minimal sputum production. ABSENT: hemoptysis Gastrointestinal: PRESENT: melena - on oral ferrous sulfate therapy. ABSENT: abdominal pain, constipation, diarrhea, hematemesis, hematochezia, nausea, vomiting Genitourinary: ABSENT: dysuria, hematuria Musculoskeletal: ABSENT: joint swelling Integumentary: ABSENT: rash, wounds Neurological: ABSENT: abnormal gait, abnormal speech, confusion, dizziness, foca l weakness, syncope Psychiatric: ABSENT: anxiety, depression, homidical ideation, suicidal ideation Endocrine: ABSENT: cold intolerance, heat intolerance, menstrual abnormalities, polydipsia, polyuria Hematologic/Lymphatic: ABSENT: easy bleeding, easy bruising, lymphadenopathy Physical Exam Vital Signs: Temp Pulse Resp BP Pulse Ox 98.7 F 70 20 134/62 H 99 10/31/19 12:10 10/31/19 12:10 10/31/19 12:10 10/31/19 12:10 10/31/19 12:10 Intake & Output 10/30/19 10/31/19 11/01/19 06:59 06:59 06:59 Weight 118.1 kg General appearance: PRESENT: no acute distress, morbidly obese Head exam: PRESENT: atraumatic, normocephalic Eye exam: PRESENT: conjunctiva pink, EOMI, PERRLA. ABSENT: scleral icterus Ear exam: PRESENT: normal external ear exam Mouth exam: PRESENT: moist, tongue midline Neck exam: PRESENT: full ROM. ABSENT: carotid bruit, JVD, lymphadenopathy, thyromegaly Respiratory exam: PRESENT: clear to auscultation analia Cardiovascular exam: PRESENT: RRR, +S1, +S2, systolic murmur. ABSENT: diastolic murmur, rubs Murmur grade: 3 Vascular exam: ABSENT: pallor GI/Abdominal exam: PRESENT: normal bowel sounds, soft. ABSENT: distended, guarding, mass, organolmegaly, rebound, tenderness Rectal exam: PRESENT: deferred Extremities exam: ABSENT: pedal edema Neurological exam: PRESENT: alert, awake, oriented to person, oriented to place, oriented to time, oriented to situation, CN II-XII grossly intact. ABSENT: motor sensory deficit Psychiatric exam: PRESENT: appropriate affect, normal mood. ABSENT: homicidal ideation, suicidal ideation Skin exam: PRESENT: dry, warm Results Laboratory Results: 10/31/19 12:25 10/31/19 12:25 10/31/19 10/31/19 10/31/19 12:25 12:25 12:25 WBC 2.9 L RBC 2.79 L Hgb 8.1 L Hct 25.4 L MCV 91 MCH 29.0 MCHC 31.9 L RDW 15.8 H Plt Count 137 L Seg Neutrophils % 50.9 Sodium 140.0 Potassium 4.8 Chloride 108 H Carbon Dioxide 26 Anion Gap 6 BUN 22 H Creatinine 1.08 Est GFR ( Amer) > 60 Glucose 92 Calcium 8.8 Total Bilirubin 0.7 AST 24 Alkaline Phosphatase 84 Total Protein 7.1 Albumin 3.7 Urine Color YELLOW Urine Appearance CLEAR Urine pH 5.0 Ur Specific [place] 1.019 Urine Protein NEGATIVE Urine Glucose (UA) NEGATIVE Urine Ketones NEGATIVE Urine Blood MODERATE H Urine Nitrite NEGATIVE Ur Leukocyte Esterase TRACE H Ur Squamous Epith Cells MANY Blood Type Antibody Screen 10/31/19 12:25 WBC RBC Hgb Hct MCV MCH MCHC RDW Plt Count Seg Neutrophils % Sodium Potassium Chloride Carbon Dioxide Anion Gap BUN Creatinine Est GFR ( Amer) Glucose Calcium Total Bilirubin AST Alkaline Phosphatase Total Protein Albumin Urine Color Urine Appearance Urine pH Ur Specific Bee Urine Protein Urine Glucose (UA) Urine Ketones Urine Blood Urine Nitrite Ur Leukocyte Esterase Ur Squamous Epith Cells Blood Type O POSITIVE Antibody Screen NEGATIVE 10/31/19 12:25 NT-Pro-B Natriuret Pep 1270 H Impressions: Chest X-Ray 10/31/19 12:18 IMPRESSION: Cardiomegaly. No acute findings in the chest. Assessment & Plan - Diagnosis (1) Symptomatic anemia Is this a current diagnosis for this admission?: Yes Plan: See admitting attending physician orders for details about care plan. (2) GI bleeding Qualifiers: GI bleed type/associated pathology: unspecified gastrointestinal hemorrhage type Qualified Code(s): K92.2 - Gastrointestinal hemorrhage, unspecified Is this a current diagnosis for this admission?: Yes Plan: See admitting attending physician orders for details about care plan. (3) Postmenopausal vaginal bleeding Is this a current diagnosis for this admission?: Yes Plan: See admitting attending physician orders for details about care plan. (4) Chronic atrial fibrillation Is this a current diagnosis for this admission?: Yes Plan: See admitting attending physician orders for details about care plan. (5) Congestive heart failure with cardiomyopathy Is this a current diagnosis for this admission?: Yes Plan: See admitting attending physician orders for details about care plan. (6) Hypertension Qualifiers: Hypertension type: essential hypertension Qualified Code(s): I10 - Essential (primary) hypertension Is this a current diagnosis for this admission?: Yes Plan: See admitting attending physician orders for details about care plan. - Time Time Spent: 50 to 70 Minutes Medications reviewed and adjusted accordingly: Yes Anticipated discharge: Home Within: Other - Inpatient Certification Based on my medical assessment, after consideration of the patient's comorbidities, presenting symptoms, or acuity I expect that the services needed warrant INPATIENT care.: Yes I certify that my determination is in accordance with my understanding of Medicare's requirements for reasonable and necessary INPATIENT services [42 CFR 412.3e].: Yes Medical Necessity: Significant Comorbidiites Make Outpatient Treatment Too Risky, Need Close Monitoring Due to Risk of Patient Decompensation, Need For Continuous Telemetry Monitoring, Risk of Complication if Not Cared For in Hospital, Risk of Diagnosis Which Will Require Inpatient Eval/Care/Monitoring Post Hospital Care: D/C Cyber Systems Operations Specialist Documentation - Plan Summary Plan Summary: See admitting attending physician orders for details about care plan.
--- NOTE | 2019-11-01 14:50 | PDOC PROGRESS REPORT ---
Subjective Progress Note for:: 11/01/19 Subjective:: Patient is feeling better today. No chest pain or difficulty with breathing. No nausea, vomiting, or abdominal pain. No fever or chills. She received two units PRBC so far since admission. Reason For Visit: SYMPTOMATIC ANEMIA DUE TO ONGOING GASTROINTESTINAL AND VAGINAL BLEEDING Physical Exam Vital Signs: Temp Pulse Resp BP Pulse Ox 97.8 F 70 16 110/50 L 99 11/01/19 07:11 11/01/19 07:11 11/01/19 07:11 11/01/19 07:11 11/01/19 07:11 Intake & Output 10/31/19 11/01/19 11/02/19 06:59 06:59 06:59 Intake Total 963 Balance 963 Weight 115 kg General appearance: PRESENT: no acute distress, morbidly obese Head exam: PRESENT: atraumatic, normocephalic Eye exam: PRESENT: conjunctiva pink. ABSENT: scleral icterus Ear exam: PRESENT: normal external ear exam Mouth exam: PRESENT: moist Neck exam: PRESENT: full ROM Cardiovascular exam: PRESENT: RRR, +S1, +S2, systolic murmur. ABSENT: diastolic murmur, rubs Murmur grade: 3 Vascular exam: ABSENT: pallor GI/Abdominal exam: PRESENT: normal bowel sounds, soft. ABSENT: distended, guarding, mass, organolmegaly, rebound, tenderness Extremities exam: ABSENT: pedal edema Neurological exam: PRESENT: alert, awake, oriented to person, oriented to place, oriented to time, oriented to situation, CN II-XII grossly intact. ABSENT: motor sensory deficit Psychiatric exam: PRESENT: appropriate affect, normal mood. ABSENT: homicidal ideation, suicidal ideation Skin exam: PRESENT: dry, warm Results Laboratory Results: 11/01/19 05:48 11/01/19 05:48 10/31/19 10/31/19 10/31/19 12:25 12:25 12:25 WBC 2.9 L RBC 2.79 L Hgb 8.1 L Hct 25.4 L MCV 91 MCH 29.0 MCHC 31.9 L RDW 15.8 H Plt Count 137 L Seg Neutrophils % 50.9 Sodium 140.0 Potassium 4.8 Chloride 108 H Carbon Dioxide 26 Anion Gap 6 BUN 22 H Creatinine 1.08 Est GFR ( Amer) > 60 Glucose 92 Calcium 8.8 Total Bilirubin 0.7 AST 24 Alkaline Phosphatase 84 Total Protein 7.1 Albumin 3.7 Urine Color YELLOW Urine Appearance CLEAR Urine pH 5.0 Ur Specific [place] 1.019 Urine Protein NEGATIVE Urine Glucose (UA) NEGATIVE Urine Ketones NEGATIVE Urine Blood MODERATE H Urine Nitrite NEGATIVE Ur Leukocyte Esterase TRACE H Ur Squamous Epith Cells MANY Blood Type Antibody Screen 10/31/19 11/01/19 11/01/19 12:25 05:48 05:48 WBC 2.8 L RBC 3.21 L Hgb 9.4 L Hct 28.7 L MCV 89 MCH 29.3 MCHC 32.8 RDW 14.8 H Plt Count 109 L Seg Neutrophils % 51.8 Sodium 139.4 Potassium 4.3 Chloride 106 Carbon Dioxide 25 Anion Gap 8 BUN 21 H Creatinine 1.02 Est GFR ( Amer) > 60 Glucose 85 Calcium 8.6 Total Bilirubin 2.1 H AST 21 Alkaline Phosphatase 79 Total Protein 6.7 Albumin 3.3 L Urine Color Urine Appearance Urine pH Ur Specific [place] Urine Protein Urine Glucose (UA) Urine Ketones Urine Blood Urine Nitrite Ur Leukocyte Esterase Ur Squamous Epith Cells Blood Type O POSITIVE Antibody Screen NEGATIVE 10/31/19 12:25 NT-Pro-B Natriuret Pep 1270 H Impressions: Chest X-Ray 10/31/19 12:18 IMPRESSION: Cardiomegaly. No acute findings in the chest. Assessment & Plan - Diagnosis (1) Symptomatic anemia Is this a current diagnosis for this admission?: Yes Plan: See attending physician orders for details about care plan. (2) GI bleeding Qualifiers: GI bleed type/associated pathology: unspecified gastrointestinal hemorrhage type Qualified Code(s): K92.2 - Gastrointestinal hemorrhage, unspecified Is this a current diagnosis for this admission?: Yes Plan: See attending physician orders for details about care plan. (3) Postmenopausal vaginal bleeding Is this a current diagnosis for this admission?: Yes Plan: See attending physician orders for details about care plan. (4) Chronic atrial fibrillation Is this a current diagnosis for this admission?: Yes Plan: See attending physician orders for details about care plan. (5) Congestive heart failure with cardiomyopathy Is this a current diagnosis for this admission?: Yes Plan: See attending physician orders for details about care plan. (6) Hypertension Qualifiers: Hypertension type: essential hypertension Qualified Code(s): I10 - Essential (primary) hypertension Is this a current diagnosis for this admission?: Yes Plan: See attending physician orders for details about care plan. (7) Morbid obesity with BMI of 40.0-44.9, adult Is this a current diagnosis for this admission?: Yes Plan: See attending physician orders for details about care plan. - Time Time Spent with patient: 25-34 minutes Level of Care: IMCU Medications reviewed and adjusted accordingly: Yes Anticipated discharge: Home Within: Other - Inpatient Certification Based on my medical assessment, after consideration of the patient's comorbidities, presenting symptoms, or acuity I expect that the services needed warrant INPATIENT care.: Yes I certify that my determination is in accordance with my understanding of Medicare's requirements for reasonable and necessary INPATIENT services [42 CFR 412.3e].: Yes Medical Necessity: Significant Comorbidiites Make Outpatient Treatment Too Risky, Need Close Monitoring Due to Risk of Patient Decompensation, Need For IV Fluids, Need For Continuous Telemetry Monitoring, Risk of Complication if Not Cared For in Hospital, Risk of Diagnosis Which Will Require Inpatient Eval/Care/Monitoring Post Hospital Care: D/C Manager Assembly Documentation - Plan Summary Plan Summary: See attending physician orders for details about care plan. Obtain EGD and colonoscopy reports from Dr. Mireles's office and [facility]. Obtain anemia workup from pretransfusion blood specimen. Obtain GI consultation with Dr. Mireles.
[2019-11-01 15:08] LABS: ABSOLUTE RETICS # 0.114 10^6/uL (0.028-0.122); RETICULOCYTE COUNT (AUTO) 3.61 % (0.66-2.85)
[2019-11-01 15:12] LABS: IRON(TIBC) 117.4 ug/dL (37-170)
[2019-11-02] MEDS: POTASSIUM CHLORIDE 10 MEQ TABLET.ER PO SCH (09:32)
[2019-11-02] MEDS: FERROUS SULFATE 325 MG TABLET PO SCH (09:32)
[2019-11-02] MEDS: FUROSEMIDE 40 MG TABLET PO SCH (09:32)
[2019-11-02] MEDS: MULTIVITAMIN TABLET PO SCH (09:33)
[2019-11-02] MEDS: METOPROLOL TARTRATE 25 MG TABLET PO SCH (09:34)
[2019-11-02] MEDS: LOSARTAN POTASSIUM 25 MG TABLET PO SCH (09:34)
[2019-11-02] MEDS: PANTOPRAZOLE SODIUM 40 MG VIAL IV SCH (09:34)
[2019-11-02] MEDS ORDERED: PANTOPRAZOLE SODIUM 40 MG TABLET.DR PO SCH (10:00)
--- NOTE | 2019-11-02 12:44 | PDOC DISCHARGE SUMMARY ---
Impression - Admit/DC Date/PCP Admission Date/Primary Care Provider: 10/31/19 17:33 RADHA CUEVAS Discharge Date: 11/02/19 - Discharge Diagnosis (1) Symptomatic anemia Is this a current diagnosis for this admission?: Yes (2) GI bleeding Is this a current diagnosis for this admission?: Yes (3) Postmenopausal vaginal bleeding Is this a current diagnosis for this admission?: Yes (4) Chronic atrial fibrillation Is this a current diagnosis for this admission?: Yes (5) Congestive heart failure with cardiomyopathy Is this a current diagnosis for this admission?: Yes (6) Hypertension Is this a current diagnosis for this admission?: Yes (7) Morbid obesity with BMI of 40.0-44.9, adult Is this a current diagnosis for this admission?: Yes - Assessment Summary: Patient was admitted for symptomatic anemia. She was transfused 2 units PRBC with improvement of her hemoglobin to above 9gm/dl. She denied an recurrent va ginal or GI bleed since admission. Her vitals stay stable and she was been off Xarelto. I discussed her case with Dr. Lerma, general store manager. She will be discharged home today and follow up with Dr. Lerma in his office to arrange for outpatient EGD and colonoscopy evaluation as necessary. She will follow up with Dr. Lerma and myself as instructed upon discharge home today. - Additional Information Resuscitation Status: Full Code Discharge Diet: Regular, Cardiac Discharge Activity: Activity As Tolerated Referrals: RADHA CUEVAS MD [Primary Care Provider] - 11/13/19 10:00 am RACH LERMA MD [ACTIVE STAFF] - Prescriptions: Codeine Phosphate/Guaifenesin [Guaifenesin Ac Cough Syrup] 10 ml PO Q4H PRN #473 liquid PRN Reason: Home Medications: Potassium Chloride [Klor-Con 10 Meq Tablet ER] 20 meq PO DAILY 12/24/11 Rivaroxaban [Xarelto 10 mg Tablet] 20 mg PO QHS 01/22/16 Esomeprazole Mag Trihydrate [Nexium] 40 mg PO DAILY #30 capsule. 01/23/16 Ferrous Sulfate [Ferrousul] 325 mg PO BID 04/30/18 Acetaminophen [Pain Relief] 650 mg PO Q6HP PRN 10/31/19 Aspirin [Adult Aspirin Regimen] 81 mg PO DAILY 10/31/19 Clonazepam [Klonopin] 0.5 mg PO BIDP PRN 10/31/19 Furosemide [Lasix 40 mg Tablet] 40 mg PO BID 10/31/19 Guaifenesin/Dextromethorphan [Coricidin Hbp Chest Sahil-Cough] 1 tab PO TID 10/31/19 Losartan Potassium [Cozaar 25 mg Tablet] 25 mg PO BID 10/31/19 Metoprolol Tartrate [Lopressor 50 mg Tablet] 25 mg PO Q12 10/31/19 Multivit-Min/Iron/Folic/Lutein [Centrum Silver Women Tablet] 1 tab PO DAILY 10/31/19 Codeine Phosphate/Guaifenesin [Guaifenesin Ac Cough Syrup] 10 ml PO Q4H PRN #473 liquid 11/02/19 History of Present Illiness History of Present Illness: MADISYN ANDRE is a 59 year old female known to my practice who was directed for further evaluation at the ED following 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 Franco where he was found to be diaphoretic with feeling of unwell, chest tightness, shortness of breath, and generalized weakness. She denied any fever or chills. She reported occasional minimally productive cough, chest congestion, and headache. Her initial ED evaluation was significant hemoglobin of 8.1 gm/dl. She is currently undergoing evaluation for post menopausal vaginal bleeding. She reported issue of rectal bleeding but no recurrent event. Her stool is tarry but patient reported current therapy with oral ferrous sulfate and ascorbic acid. She reported slight epigastric region discomfort and currently on Xarelto anticoagulation therapy for chronic Atrial fibrillation management. She was advised hospitalization for further evaluation and management. She reported completion of EGD and colonoscopy by Dr. Lerma and at [facility]. Her morbidities are as listed below. Hospital Course Hospital Course: Patient was admitted for symptomatic anemia. She was transfused 2 units PRBC with improvement of her hemoglobin to above 9gm/dl. She denied an recurrent vaginal or GI bleed since admission. Her vitals stay stable and she was been off Xarelto. I discussed her case with Dr. Lerma, general store manager. She will be discharged home today and follow up with Dr. Lerma in his office to arrange for outpatient EGD and colonoscopy evaluation as necessary. She will follow up with Dr. Eweje and myself as instructed upon discharge home today. Physical Exam Vital Signs: Temp Pulse Resp BP Pulse Ox 98.1 F 104 H 12 121/86 H 99 11/02/19 08:34 11/02/19 08:34 11/02/19 08:34 11/02/19 08:34 11/02/19 08:34 Intake & Output 11/01/19 11/02/19 11/03/19 06:59 06:59 06:59 Intake Total 963 720 Balance 963 720 Weight 115 kg 119.3 kg General appearance: PRESENT: no acute distress, morbidly obese Head exam: PRESENT: atraumatic, normocephalic Eye exam: PRESENT: conjunctiva pink. ABSENT: pallor, scleral icterus Ear exam: PRESENT: normal external ear exam Mouth exam: PRESENT: moist Neck exam: PRESENT: full ROM Cardiovascular exam: PRESENT: RRR, +S1, +S2, systolic murmur. ABSENT: diastolic murmur, rubs Murmur grade: 3 GI/Abdominal exam: PRESENT: normal bowel sounds, soft. ABSENT: distended, guarding, mass, organomegaly, rebound, tenderness Extremities exam: ABSENT: pedal edema Neurological exam: PRESENT: alert, awake, oriented to person, oriented to place, oriented to time, oriented to situation, CN II-XII grossly intact. ABSENT: motor sensory deficit Psychiatric exam: PRESENT: appropriate affect, normal mood. ABSENT: homicidal ideation, suicidal ideation Skin exam: PRESENT: dry, warm Results Laboratory Results: WBC 2.8 10^3/uL (4.0-10.5) L 11/01/19 05:48 RBC 3.21 10^6/uL (3.72-5.28) L 11/01/19 05:48 Hgb 9.4 g/dL (12.0-15.5) L 11/01/19 05:48 Hct 28.7 % (36.0-47.0) L 11/01/19 05:48 MCV 89 fl (80-97) 11/01/19 05:48 MCH 29.3 pg (27.0-33.4) 11/01/19 05:48 MCHC 32.8 g/dL (32.0-36.0) 11/01/19 05:48 RDW 14.8 % (11.5-14.0) H 11/01/19 05:48 Plt Count 109 10^3/uL (150-450) L 11/01/19 05:48 Lymph % (Auto) 33.4 % (13-45) 11/01/19 05:48 [place] % (Auto) 10.9 % (3-13) 11/01/19 05:48 Eos % (Auto) 3.2 % (0-6) 11/01/19 05:48 Baso % (Auto) 0.7 % (0-2) 11/01/19 05:48 Reticulocyte # 0.114 10^6/uL (0.028-0.122) 11/01/19 05:48 Absolute Neuts (auto) 1.4 10^3/uL (1.7-8.2) L 11/01/19 05:48 Absolute Lymphs (auto) 0.9 10^3/uL (0.5-4.7) 11/01/19 05:48 Absolute Monos (auto) 0.3 10^3/uL (0.1-1.4) 11/01/19 05:48 Absolute Eos (auto) 0.1 10^3/uL (0.0-0.6) 11/01/19 05:48 Absolute Basos (auto) 0.0 10^3/uL (0.0-0.2) 11/01/19 05:48 Seg Neutrophils % 51.8 % (42-78) 11/01/19 05:48 Retic Count (auto) 3.61 % (0.66-2.85) H 11/01/19 05:48 PT 21.6 SEC (11.4-15.4) H 10/31/19 13:25 INR 1.85 10/31/19 13:25 APTT 37.2 SEC (23.5-35.8) H 10/31/19 13:25 Sodium 139.4 mmol/L (137-145) 11/01/19 05:48 Potassium 4.3 mmol/L (3.6-5.0) 11/01/19 05:48 Chloride 106 mmol/L (98-107) 11/01/19 05:48 Carbon Dioxide 25 mmol/L (22-30) 11/01/19 05:48 Anion Gap 8 (5-19) 11/01/19 05:48 BUN 21 mg/dL (7-20) H 11/01/19 05:48 Creatinine 1.02 mg/dL (0.52-1.25) 11/01/19 05:48 Est GFR ( Amer) > 60 (>60) 11/01/19 05:48 Est GFR (MDRD) Non-Af 55 (>60) L 11/01/19 05:48 Glucose 85 mg/dL (75-110) 11/01/19 05:48 Calcium 8.6 mg/dL (8.4-10.2) 11/01/19 05:48 Iron 117.4 ug/dL (37-170) 11/01/19 05:48 TIBC 430 ug/dL (250-450) 11/01/19 05:48 % Saturation 27 % 11/01/19 05:48 Ferritin 18.20 ng/mL (11.1-264.0) 11/01/19 05:48 Total Bilirubin 2.1 mg/dL (0.2-1.3) H 11/01/19 05:48 Direct Bilirubin 0.3 mg/dL (0.0-0.4) 11/01/19 05:48 Neonat Total Bilirubin Not Reportable 11/01/19 05:48 Neonat Direct Bilirubin Not Reportable 11/01/19 05:48 Neonat Indirect Bili Not Reportable 11/01/19 05:48 AST 21 U/L (14-36) 11/01/19 05:48 ALT 11 U/L (<35) 11/01/19 05:48 Alkaline Phosphatase 79 U/L (38-126) 11/01/19 05:48 NT-Pro-B Natriuret Pep 1270 pg/mL (<125) H 10/31/19 12:25 Total Protein 6.7 g/dL (6.3-8.2) 11/01/19 05:48 Albumin 3.3 g/dL (3.5-5.0) L 11/01/19 05:48 Vitamin B12 654.0 pg/mL (239-931) 11/01/19 05:48 Folate 12.10 ng/mL (>2.76) 11/01/19 05:48 Urine Color YELLOW 10/31/19 12:25 Urine Appearance CLEAR 10/31/19 12:25 Urine pH 5.0 (5.0-9.0) 10/31/19 12:25 Ur Specific [place] 1.019 10/31/19 12:25 Urine Protein NEGATIVE mg/dL (NEGATIVE) 10/31/19 12:25 Urine Glucose (UA) NEGATIVE mg/dL (NEGATIVE) 10/31/19 12:25 Urine Ketones NEGATIVE mg/dL (NEGATIVE) 10/31/19 12:25 Urine Blood MODERATE (NEGATIVE) H 10/31/19 12:25 Urine Nitrite NEGATIVE (NEGATIVE) 10/31/19 12:25 Urine Bilirubin NEGATIVE (NEGATIVE) 10/31/19 12:25 Urine Urobilinogen 4.0 mg/dL (<2.0) H 10/31/19 12:25 Ur Leukocyte Esterase TRACE (NEGATIVE) H 10/31/19 12:25 Urine RBC 0-1 /HPF 10/31/19 12:25 Urine WBC 1-5 /HPF 10/31/19 12:25 Ur Squamous Epith Cells MANY /HPF 10/31/19 12:25 Urine Bacteria TRACE /HPF 10/31/19 12:25 Urine Mucus 1+ 10/31/19 12:25 Urine Ascorbic Acid 40 (NEGATIVE) H 10/31/19 12:25 Blood Type O POSITIVE 10/31/19 12:25 Blood Type Confirm O POSITIVE 10/31/19 12:25 Antibody Screen NEGATIVE 10/31/19 12:25 Crossmatch See Detail 10/31/19 12:25 10/31/19 12:25 NT-Pro-B Natriuret Pep 1270 H Impressions: Chest X-Ray 10/31/19 12:18 IMPRESSION: Cardiomegaly. No acute findings in the chest. Plan Health Concerns: Continued bleeding while on Xarelto and need for recurrent blood transfusion. Plan of Treatment: Follow up with Dr. Lerma for endoscopic evaluation. Goals: Reduce readmission risk level through close follow up with consideration of outpatient transfusion in the future. Time Spent: Greater than 30 Minutes - Discase with Dr Lerma, patient and her daughter at bedside. Stroke Is this a Stroke Patient?: No Acute Heart Failure - Is this a Heart Failure Patient?: No
[2019-11-02 13:40] VITALS: BP 122/62
== END 2019-11-02 14:34 | disposition home or self-care (01) ==
LOC: ER 11:41 → EH 17:33 → 3S 23:31
PROVIDERS: ADMIT Internal Medicine Geriatric Medicine; ATTEND Internal Medicine Geriatric Medicine
DX: D50.0 Iron deficiency anemia secondary to blood loss (chronic) (principal); K92.1 Melena; N95.0 Postmenopausal bleeding; I48.20 Chronic atrial fibrillation, unspecified; I25.10 Atherosclerotic heart disease of native coronary artery without angina pectoris; I11.0 Hypertensive heart disease with heart failure; I50.9 Heart failure, unspecified; I42.9 Cardiomyopathy, unspecified; Z79.01 Long term (current) use of anticoagulants; E66.01 Morbid (severe) obesity due to excess calories; R05 Cough; R09.89 Other specified symptoms and signs involving the circulatory and respiratory systems; R51 Headache; G25.81 Restless legs syndrome; I25.2 Old myocardial infarction; K21.9 Gastro-esophageal reflux disease without esophagitis; M81.0 Age-related osteoporosis without current pathological fracture; Z68.41 Body mass index [BMI] 40.0-44.9, adult; Z79.899 Other long term (current) drug therapy; Z90.49 Acquired absence of other specified parts of digestive tract; Z95.810 Presence of automatic (implantable) cardiac defibrillator; Z82.49 Family history of ischemic heart disease and other diseases of the circulatory system; Z79.82 Long term (current) use of aspirin
CPT/HCPCS: 93005; 99284; 96374; 86900; 86901; 36415 ×2; 36430; 86850; 82607; 82728; 82746; 83540; 83550; 85025 ×2; 85610; 85730; 85045; 80053 ×2; 81001; 86920; 83880; 71046; 93010; G0378 ×4; P9016 ×2; A9270 ×13; C9113 ×2; J3490

== ENCOUNTER 2020-02-01 12:59 | Outpatient (CLI) | payer MEDICARE, MEDICAID ==
[~2020-02-01 12:59] MED LIST: DEXAMETHASONE SOD PHOSPHATE 10 MG in NORMAL SALINE 50 ML IV PRN; DIPHENHYDRAMINE HCL 50 MG in NORMAL SALINE 50 ML IV PRN; FAMOTIDINE/PF 20 MG in NORMAL SALINE 50 ML IV PRN; NORMAL SALINE 250 ML IV PRN
[2020-02-01 13:57] VITALS: BP 124/70
[2020-02-01] MEDS: FERUMOXYTOL (NON-ESRD) 510 MG/NS 100 ML IV PRN ×4 (14:05→14:06)
== END 2020-02-01 15:32 | disposition home or self-care (01) ==
LOC: II 12:59 → 5TH 13:11 → II 15:32
PROVIDERS: ATTEND Internal Medicine
DX: D50.9 Iron deficiency anemia, unspecified (principal); K90.9 Intestinal malabsorption, unspecified
CPT/HCPCS: 96365; 96367; Q0138; J7050; S0028; J1100; J1200

== ENCOUNTER 2020-02-08 12:45 | Outpatient (CLI) | payer MEDICARE, MEDICAID ==
[~2020-02-08 12:45] MED LIST changes: +DEXAMETHASONE 10 MG in NS 50 ML IV PRN; -DEXAMETHASONE SOD PHOSPHATE 10 MG in NORMAL SALINE 50 ML IV PRN; +DIPHENHYDRAMINE 50 MG in NS 50 ML IV PRN; -DIPHENHYDRAMINE HCL 50 MG in NORMAL SALINE 50 ML IV PRN; +FAMOTIDINE 20 MG in NS 50 ML IV PRN; -FAMOTIDINE/PF 20 MG in NORMAL SALINE 50 ML IV PRN; +FERUMOXYTOL (NON-ESRD) 510 MG/NS 100 ML IV PRN; +NORMAL SALINE 250 ML @ KVO IV PRN; -NORMAL SALINE 250 ML IV PRN
[2020-02-08 13:49] VITALS: BP 152/96
== END 2020-02-08 14:47 | disposition home or self-care (01) ==
LOC: II 12:45 → 5TH 12:56 → II 14:47
PROVIDERS: ATTEND Internal Medicine
DX: D50.9 Iron deficiency anemia, unspecified (principal); K90.9 Intestinal malabsorption, unspecified
CPT/HCPCS: 96365; 96367; Q0138; J7050; S0028; J1100; J1200

== ENCOUNTER 2020-03-07 15:56 | Emergency (ER) | payer MEDICARE, MEDICAID ==
--- NOTE | 2020-03-07 17:31 | EKG REPORT ---
SEVERITY:- ABNORMAL ECG - V PACED RHYTHM BASELINE ARTEFACT LIMITS FURTHER ANALYSIS : Confirmed by: Jaspal Garner MD 07-Mar-2020 17:31:03
[2020-03-07 17:45] LABS: ABSOLUTE LYMPHOCYTES (AUTO) 0.9 10^3/uL (0.5-4.7); ABSOLUTE MONOCYTES (AUTO) 0.2 10^3/uL (0.1-1.4); ABSOLUTE NEUT (AUTO) 1.8 10^3/uL (1.7-8.2); EOSINOPHILS % (AUTO) 1.3 % (0-6); RED BLOOD COUNT 3.15 10^6/uL (3.72-5.28); TOTAL CELLS COUNTED % (AUTO) 100 %
[2020-03-07 17:55] LABS: BASOPHILS % (AUTO) 1.4 % (0-2); HEMATOCRIT 28.8 % (36.0-47.0); HEMOGLOBIN 9.4 g/dL (12.0-15.5); MEAN CORPUSCULAR HEMOGLOBIN 29.8 pg (27.0-33.4); MEAN CORPUSCULAR HGB CONC 32.6 g/dL (32.0-36.0); MEAN CORPUSCULAR VOLUME 91 fl (80-97); MONOCYTES % (AUTO) 8.1 % (3-13); PLATELET COUNT 142 10^3/uL (150-450); RED CELL DISTRIBUTION WIDTH 16.2 % (11.5-14.0); SEGMENTED NEUTROPHILS % (AUTO) 59.2 % (42-78); WHITE BLOOD COUNT 3.1 10^3/uL (4.0-10.5)
--- NOTE | 2020-03-07 18:02 | ER Document Report ---
ED General - General TRAVEL OUTSIDE OF THE [place] IN LAST 30 DAYS: No - Related Data Home Medications: Xarelto. Furosemide. Losartan. Metoprolol. Iron. Nexium. Aspirin <GNIALUZ Sandra - Last Filed: 03/07/20 19:18> <QUAN MARTINO JN - Last Filed: 03/07/20 20:41> - General Chief Complaint: Other Stated Complaint: HEART PROBLEMS Time Seen by Provider: 03/07/20 17:13 Primary Care Provider: RADHA CUEVAS MD [Primary Care Provider] - Follow up as needed Notes: This 59-year-old woman presents to the emergency department with a history of firing of her ICD. Patient states that she has had symptoms fatigue and shortness of breath. She also notes that the she is presently chest pain-free. Patient presented to the emergency department by EMS with the history of 2 shocks from her defibrillator. Patient states she was sitting on a couch with family and she received a defibrillation and when EMS arrived she apparently had a second episode. She describes intermittent shortness of breath and chest discomfort as well as fatigue. She has had iron infusion on 2 separate occasions over the past week.. (LUZ JURADO) - Related Data Allergies/Adverse Reactions: Penicillins Allergy (Verified 10/31/19 12:15) headaches/dizziness levofloxacin [From Levaquin] Adverse Reaction (Verified 10/31/19 12:15) Vomiting Past Medical History - Social History Smoking Status: Unknown if Ever Smoked Family History: Reviewed & Not Pertinent, CAD, Hypertension - Past Medical History Cardiac Medical History: Reports: Hx Congestive Heart Failure, Hx Heart Attack, Hx Hypercholesterolemia, Hx Hypertension Denies: Hx Atrial Fibrillation, Hx Coronary Artery Disease - cath 2011, Hx Peripheral Vascular Disease, Hx Pulmonary Embolism, Hx Heart Murmur Pulmonary Medical History: Reports: Hx Pneumonia Denies: Hx Asthma, Hx Bronchitis, Hx COPD, Hx Respiratory Failure, Hx Sleep Apnea, Hx Tuberculosis Neurological Medical History: Denies: Hx Cerebrovascular Accident, Hx Seizures, Hx Parkinson's Disease Endocrine Medical History: Reports: Hx Hyperthyroidism. Denies: Hx Graves' Disease, Hx Hypothyroidism Renal/ Medical History: Denies: Hx End Stage Renal Disease, Hx Kidney Stones, Hx Ovarian Cysts, Hx Peritoneal Dialysis, Hx Pelvic Inflammatory Disease Malignancy Medical History: Denies: Hx Breast Cancer, Hx Cervical Cancer, Hx Leukemia, Hx Lung Cancer, Hx Ovarian Cancer GI Medical History: Reports: Hx Gastroesophageal Reflux Disease. Denies: Hx Crohn's Disease, Hx Hiatal Hernia, Hx Irritable Bowel, Hx Liver Failure, Hx Pancreatitis, Hx Ulcer Musculoskeletal Medical History: Reports Hx Arthritis - osteoporosis ,RLS, Denie s Hx Fibromyalgia, Denies Hx Multiple Sclerosis, Denies Hx Muscular Dystrophy, Denies Hx Systemic Lupus Erythematosus Psychiatric Medical History: Denies: Hx Bipolar Disorder, Hx Dementia, Hx Depression, Hx Post Traumatic Stress Disorder, Hx Schizophrenia Traumatic Medical History: Denies: Hx Fractures Infectious Medical History: Denies: Hx HIV Past Surgical History: Reports: Hx Cardiac Surgery - defibrilator 2008 replaced April,., Hx Cholecystectomy, Hx Internal Defibrillator, Hx Pacemaker. Denies: Hx Appendectomy, Hx Bowel Surgery, Hx Section, Hx Colostomy, Hx Coronary Artery Bypass Graft, Hx Gastric Bypass Surgery, Hx Herniorrhaphy, Hx Hysterectomy, Hx Mastectomy, Hx Tonsillectomy, Hx Tubal Ligation - Immunizations Immunizations up to date: Yes Hx Diphtheria, Pertussis, Tetanus Vaccination: No Hx Pneumococcal Vaccination: 08/22/12 <LUZ JURADO - Last Filed: 03/07/20 19:18> Review of Systems <LUZ JURADO - Last Filed: 03/07/20 19:18> - Review of Systems Notes: Constitutional: + Fatigue HENT: Negative for sore throat. Eyes: Negative for visual changes. Cardiovascular: See HPI Respiratory: + Shortness of breath. Gastrointestinal: Negative for abdominal pain, vomiting or diarrhea. Genitourinary: Negative for dysuria. Musculoskeletal: Negative for back pain. Skin: Negative for rash. Neurological: Negative for headaches, weakness or numbness. 10 point ROS negative except as marked above and in HPI. (LUZ JURADO) Physical Exam <LUZ JURADO - Last Filed: 03/07/20 19:18> - Vital signs Vitals: Resp BP Pulse Ox 16 122/87 H 100 03/07/20 16:07 03/07/20 16:07 03/07/20 16:07 - Notes Notes: PHYSICAL EXAMINATION: Physical Exam: General: Obese 59-year-old woman in no acute distress HEENT: NC/AT, pupils equal round and reactive to light, MM moist,nares clear, oropharynx clear, airway patent Neck: supple, no adenopathy, no masses. Good range of motion Lungs: Good air movement, no wheezes rales or rhonchi CVS: Regular rate and rhythm no murmur gallop or rub Abdomen: Soft, active, nontender, no masses, no hepatosplenomegaly Ext: No edema, clubbing or cyanosis. Neuro: Uncontrollable shaking and twitching of the right upper extremity, alert and responsive no acute focal findings. Skin: Intact no open lesions, no rash PSYCH: Normal mood, normal affect. (LUZ JURADO) Course - Laboratory Result Diagrams: 03/07/20 17:28 03/07/20 17:28 - Diagnostic Test Radiology reviewed: Image reviewed, Reports reviewed <LUZ JURADO - Last Filed: 03/07/20 19:18> - Laboratory Result Diagrams: 03/07/20 17:28 03/07/20 17:28 <QUAN MARTINO IV - Last Filed: 03/07/20 20:41> - Re-evaluation Re-evalutation: 03/07/20 18:53 And a analysis of the [place] A ICD was performed. The oil bay technician sent over the report and also noted that there were no discharge of the ICD noted on the interpretation. The EKG shows a paced rhythm with no further interpretation to be made, chest x- ray is clear cardiomegaly with no pulmonary edema. We are awaiting the baseline labs. Unless patient has some significant abnormality is my intention to discharge her to the home. 03/07/20 19:07 Lab tests were essentially normal, patient is anemic but has been receiving iron infusion. We will repeat a troponin at 19:28, if it is unchanged we will discharge. I have discussed the findings with the patient and her daughter and they are in agreement. (LUZ JURADO) 03/07/20 20:39 Patient was checked out to this MD by Dr. Jurado. He stated that if the patient's second troponin was also positive the patient can be safely discharged time. The second troponin is less than 0.012. This MD will proceed with discharge patient home as per Dr. Jurado's instructions. (QUAN MARTINO IV) - Vital Signs Vital signs: Temp Pulse Resp BP Pulse Ox 20 109/57 L 100 03/07/20 20:00 03/07/20 17:01 03/07/20 20:00 - Laboratory Laboratory results interpreted by me: 03/07/20 03/07/20 17:28 17:28 WBC 3.1 L RBC 3.15 L Hgb 9.4 L Hct 28.8 L RDW 16.2 H Plt Count 142 L Est GFR ( Amer) 58 L Est GFR (MDRD) Non-Af 48 L I have reviewed laboratory data and used this information for the treatment decisions regarding the patient. (LUZ JURADO) - Diagnostic Test Radiology results interpreted by me: 03/07/20 18:50 Chest x-ray: Cardiomegaly, no pulmonary edema. (LUZ JURADO) - EKG Interpretation by Me Additional EKG results interpreted by me: 03/07/20 18:53 EKG reveals a rate of 71, paced rhythm, no further interpretation of the EKG changes are made, abnormal electrocardiogram. (LUZ JURADO) Discharge <LUZ JURADO - Last Filed: 03/07/20 19:18> <QUAN MARTINO IV - Last Filed: 03/07/20 20:41> - Discharge Clinical Impression: Morbid obesity with BMI of 40.0-44.9, adult, Chronic iron deficiency anemia Chest pain Qualifiers: Chest pain type: unspecified Qualified Code(s): R07.9 - Chest pain, unspecified Cardiomyopathy Qualifiers: Cardiomyopathy type: unspecified Qualified Code(s): I42.9 - Cardiomyopathy, un specified Condition: Good Disposition: HOME, SELF-CARE Additional Instructions: Return to the Emergency Department without delay if any worse. HOME CARE INSTRUCTIONS & INFORMATION: Thank you for choosing us for your the [facility] needs. We hope you're satisfied with the care you received. After you leave, you must properly care for your problem and, at the same time, observe its progress. Any condition can change. Some illnesses can change rapidly over hours or days. If your condition worsens, return to the Emergency Department or see your physician promptly. ABOUT YOUR X-RAYS AND EKG'S: If you had an EKG or X-rays taken, they have been read by the Emergency Physician. The X-rays and EKG's will also be read by a Radiologist or Block Sawyer within 24 hours. If discrepancies are noted, you will be notified by telephone. Please be certain the ED has a correct telephone number & address where you can be reached. Also, realize that some fractures or abnormalities do not show up on initial X-rays. If your symptoms continue, see your physician. ABOUT YOUR LABORATORY TEST: If you had laboratory tests, the results have been reviewed by the Emergency Physician. Some test results (for example cultures) may not be available for several days. You will be contacted if any test result shows you need additional treatment. Please be certain the ED has a correct telephone number and address where you can be reached. ABOUT YOUR MEDICATIONS: You will receive instructions on how to take your medicine on the prescription label you receive. Additional information may be provided by the Pharmacy. If you have questions afterwards, call the ED for clarification or further instructions. Some prescribed medications may cause drowsiness. Do not perform tasks such as driving a car or operating machinery without consulting your Pharmacist. If you feel you need a refill of pain medication, your condition will need re-evaluation. Please do not call for a refill of any medication. ABOUT YOUR SIGNATURE: Signature of this document acknowledges to followin. Understanding that you received emergency treatment and that you may be released before al medical problems are known or treated. Please be certain the ED has a correct phone number & address where you can be reached. 2. Acknowledgement that you will arrange for follow-up care as recommended. 3. Authorization for the Emergency Physician to provide information to your follow-up Physician in order to maximize your care. AT ANY TIME, IF YOUR SYMPTOMS CHANGE SIGNIFICANTLY OR WORSEN OR YOU DEVELOP NEW SYMPTOMS, RETURN TO THE EMERGENCY DEPARTMENT IMMEDIATELY FOR RE-EVALUATION. OUR GOAL IS TO PROVIDE EXCELLENT MEDICAL CARE! WE HOPE THAT WE HAVE MET YOUR EXPECTATIONS DURING YOUR EMERGENCY DEPARTMENT VISIT AND THAT YOU FEEL YOU HAVE RECEIVED EXCELLENT CARE! Referrals: RADHA CUEVAS MD [Primary Care Provider] - 03/10/20
[2020-03-07 18:18] LABS: ALBUMIN 4.2 g/dL (3.5-5.0); ALKALINE PHOSPHATASE 99 U/L (38-126); ANION GAP 8 (5-19); ASPARTATE AMINO TRANSFERASE 30 U/L (14-36); BLOOD UREA NITROGEN 18 mg/dL (7-20); CALCIUM 9.6 mg/dL (8.4-10.2); CARBON DIOXIDE 24 mmol/L (22-30); CHLORIDE 107 mmol/L (98-107); CREATINE KINASE 87 U/L (30-135); CREATINE KINASE MB < 0.22 ng/mL (<4.55); GLUCOSE 94 mg/dL (75-110); POTASSIUM 4.6 mmol/L (3.6-5.0); TOTAL PROTEIN 8.1 g/dL (6.3-8.2); TROPONIN I < 0.012 ng/mL
--- NOTE | 2020-03-07 18:35 | RADIOLOGY REPORT (SQ) ---
EXAM DESCRIPTION: CHEST SINGLE VIEW IMAGES COMPLETED DATE/TIME: 03/07/2020 6:22 pm REASON FOR STUDY: Chest pain COMPARISON: 10/31/2019 EXAM PARAMETERS: NUMBER OF VIEWS: One view. TECHNIQUE: Single frontal radiographic view of the chest acquired. RADIATION DOSE: NA LIMITATIONS: None. FINDINGS: LUNGS AND PLEURA: No opacities, masses or pneumothorax. No pleural effusion. MEDIASTINUM AND HILAR STRUCTURES: No masses. Contour normal. HEART AND VASCULAR STRUCTURES: Cardiomegaly. No maverick pulmonary edema. BONES: No acute findings. HARDWARE: Sternotomy wires. Pacemaker/ defibrillator. OTHER: No other significant finding. IMPRESSION: Cardiomegaly without pulmonary edema. TECHNICAL DOCUMENTATION: JOB ID: [id number] 2010 [employer]- All Rights Reserved Reading location - IP/workstation name: [email or web address]
[2020-03-07 20:36] VITALS: BP 109/57
== END 2020-03-07 21:16 | disposition home or self-care (01) ==
LOC: ER 15:56
DX: R53.83 Other fatigue (principal); R06.02 Shortness of breath; D50.8 Other iron deficiency anemias; I42.9 Cardiomyopathy, unspecified; R07.9 Chest pain, unspecified; E66.01 Morbid (severe) obesity due to excess calories; I11.0 Hypertensive heart disease with heart failure; I50.9 Heart failure, unspecified; E78.00 Pure hypercholesterolemia, unspecified; Z88.0 Allergy status to penicillin; Z95.810 Presence of automatic (implantable) cardiac defibrillator; Z90.49 Acquired absence of other specified parts of digestive tract; Z68.41 Body mass index [BMI] 40.0-44.9, adult; I25.2 Old myocardial infarction
CPT/HCPCS: 36415; 71045; 80053; 82550; 82553; 84484; 85025; 93005; 93010; 99284

== ENCOUNTER 2020-03-26 10:51 | Outpatient (CLI) | payer MEDICARE, MEDICAID ==
[~2020-03-26 10:51] MED LIST changes: -NORMAL SALINE 250 ML @ KVO IV PRN
[2020-03-26 11:23] VITALS: BP 123/62
[2020-03-27] MEDS ORDERED: NORMAL SALINE 250 ML @ KVO IV PRN (05:00)
== END 2020-03-26 13:25 | disposition home or self-care (01) ==
LOC: II 10:51 → 5TH 10:57 → II 13:25
PROVIDERS: ATTEND Internal Medicine
DX: D50.9 Iron deficiency anemia, unspecified (principal); K90.9 Intestinal malabsorption, unspecified
CPT/HCPCS: 96365; 96367; Q0138; J7050; S0028; J1100; J1200

== ENCOUNTER 2020-07-08 09:48 | Outpatient (CLI) | payer MEDICARE, MEDICAID ==
[~2020-07-08 09:48] MED LIST changes: +NORMAL SALINE 250 ML @ KVO IV PRN
[2020-07-08 10:01] VITALS: BP 119/56
== END 2020-07-08 12:11 | disposition home or self-care (01) ==
LOC: II 09:48 → 5TH 09:52 → II 12:11
PROVIDERS: ATTEND Internal Medicine
DX: D50.9 Iron deficiency anemia, unspecified (principal); K90.9 Intestinal malabsorption, unspecified
CPT/HCPCS: 96365; 96367; Q0138; J7050; S0028; J1100; J1200

== ENCOUNTER 2020-07-14 18:41 | Emergency (ER) | payer MEDICARE, MEDICAID ==
[2020-07-14 20:26] LABS: ABSOLUTE EOSINOPHILS # (AUTO) 0.1 10^3/uL (0.0-0.6); ABSOLUTE LYMPHOCYTES (AUTO) 0.9 10^3/uL (0.5-4.7); ABSOLUTE MONOCYTES (AUTO) 0.3 10^3/uL (0.1-1.4); ABSOLUTE NEUT (AUTO) 1.4 10^3/uL (1.7-8.2); EOSINOPHILS % (AUTO) 2.5 % (0-6); HEMATOCRIT 32.6 % (36.0-47.0); HEMOGLOBIN 10.6 g/dL (12.0-15.5); LYMPHOCYTES % (AUTO) 32.9 % (13-45); MEAN CORPUSCULAR HEMOGLOBIN 28.6 pg (27.0-33.4); MEAN CORPUSCULAR HGB CONC 32.4 g/dL (32.0-36.0); MEAN CORPUSCULAR VOLUME 88 fl (80-97); PLATELET COUNT 124 10^3/uL (150-450); RED CELL DISTRIBUTION WIDTH 15.3 % (11.5-14.0); SEGMENTED NEUTROPHILS % (AUTO) 53.6 % (42-78); TOTAL CELLS COUNTED % (AUTO) 100 %; WHITE BLOOD COUNT 2.7 10^3/uL (4.0-10.5)
--- NOTE | 2020-07-14 20:28 | ER Document Report ---
ED General - General Chief Complaint: Chest Pain Stated Complaint: CHEST PAIN Time Seen by Provider: 07/14/20 20:04 Primary Care Provider: RADHA CUEVAS MD [Primary Care Provider] - Follow up as needed TRAVEL OUTSIDE OF THE [place] IN LAST 30 DAYS: No - HPI Notes: Patient is a 5-year-old female presents to emergency department for evaluation of chest pain. She describes it as a shocking pain. It is located in her left chest and occasionally radiates into her left shoulder and upper arm. She describes it is happening frequently, but really cannot give me any numbers. It has been happening since Tuesday. She says it seems to happen more when she is laying down or at rest. She does describe some associated shortness of breath. She denies any nausea, diaphoresis, near syncope. She has had a minimal dry cough, but she states that that was improved with just a glass of water. She has been taking her medications as prescribed. She states that it feels like "little shocks" and perhaps it is "gearing up to do something." She did have her defibrillator fire back in 2018. - Related Data Allergies/Adverse Reactions: Penicillins Allergy (Verified 10/31/19 12:15) headaches/dizziness levofloxacin [From Levaquin] Adverse Reaction (Verified 10/31/19 12:15) Vomiting Home Medications: Xarelto, potassium, losartan, metoprolol, Nexium, aspirin, Feosol Past Medical History - General Information source: Patient - Social History Smoking Status: Never Smoker Chew tobacco use (# tins/day): No Frequency of alcohol use: None Drug Abuse: None Family History: Reviewed & Not Pertinent, CAD, Hypertension Patient has homicidal ideation: No - Past Medical History Cardiac Medical History: Reports: Hx Atrial Fibrillation, Hx Congestive Heart Failure, Hx Heart Attack, Hx Hypercholesterolemia, Hx Hypertension Denies: Hx Coronary Artery Disease - cath 2011, Hx Peripheral Vascular Disease, Hx Pulmonary Embolism, Hx Heart Murmur Pulmonary Medical History: Reports: Hx Pneumonia Denies: Hx Asthma, Hx Bronchitis, Hx COPD, Hx Respiratory Failure, Hx Sleep Apnea, Hx Tuberculosis Neurological Medical History: Denies: Hx Cerebrovascular Accident, Hx Seizures, Hx Parkinson's Disease Endocrine Medical History: Reports: Hx Hyperthyroidism. Denies: Hx Graves' Disease, Hx Hypothyroidism Renal/ Medical History: Denies: Hx End Stage Renal Disease, Hx Kidney Stones, Hx Ovarian Cysts, Hx Peritoneal Dialysis, Hx Pelvic Inflammatory Disease Malignancy Medical History: Denies: Hx Breast Cancer, Hx Cervical Cancer, Hx Leukemia, Hx Lung Cancer, Hx Ovarian Cancer GI Medical History: Reports: Hx Gastroesophageal Reflux Disease. Denies: Hx Crohn's Disease, Hx Hiatal Hernia, Hx Irritable Bowel, Hx Liver Failure, Hx Pancreatitis, Hx Ulcer Musculoskeletal Medical History: Reports Hx Arthritis - osteoporosis ,RLS, Denies Hx Fibromyalgia, Denies Hx Multiple Sclerosis, Denies Hx Muscular Dystrophy, Denies Hx Systemic Lupus Erythematosus Psychiatric Medical History: Denies: Hx Bipolar Disorder, Hx Dementia, Hx Depression, Hx Post Traumatic Stress Disorder, Hx Schizophrenia Traumatic Medical History: Denies: Hx Fractures Infectious Medical History: Denies: Hx HIV Past Surgical History: Reports: Hx Cardiac Surgery - defibrilator 2008 replaced April,., Hx Cholecystectomy, Hx Internal Defibrillator, Hx Pacemaker. Denies: Hx Appendectomy, Hx Bowel Surgery, Hx Section, Hx Colostomy, Hx Coronary Artery Bypass Graft, Hx Gastric Bypass Surgery, Hx Herniorrhaphy, Hx Hysterectomy, Hx Mastectomy, Hx Tonsillectomy, Hx Tubal Ligation - Immunizations Immunizations up to date: Yes Hx Diphtheria, Pertussis, Tetanus Vaccination: No Hx Pneumococcal Vaccination: 08/22/12 Review of Systems - Review of Systems Constitutional: No symptoms reported EENT: No symptoms reported Cardiovascular: See HPI Respiratory: See HPI Gastrointestinal: No symptoms reported Genitourinary: No symptoms reported Musculoskeletal: No symptoms reported Skin: No symptoms reported Neurological/Psychological: No symptoms reported Physical Exam - Vital signs Vitals: Resp 27 H 07/14/20 19:07 - Notes Notes: Vital signs reviewed, please refer to chart. Head is normocephalic, atraumatic. Pupils equal round, reactive to light. Neck is supple without meningismus. Heart is regular rate and rhythm. Lungs are clear to auscultation bilaterally. Well-healed pacemaker site scar noted in the left upper chest without signs of dehiscence or surrounding erythema. She does have some tenderness to palpation of the chest wall and in the anterior bicep muscles. Abdomen is soft, nontender, normoactive bowel sounds throughout. Extremities without cyanosis, clubbing. 1+ pitting pretibial edema noted. Posterior calves are nontender. Peripheral pulses are equal. Skin is warm and dry. Patient is awake, alert, neurological exam is nonfocal. Course - Re-evaluation Re-evalutation: 07/14/20 20:27 Patient presents emergency department for evaluation of chest pain. It certainly does not seem to be anginal in quality. Currently obtaining interrogation of her pacer/defibrillator. Lab work is pending. She is currently comfortable in the bed, vital signs largely unremarkable. We will continue to monitor. 07/14/20 22:15 Patient remained stable throughout the course of her stay in the emergency department. The [facility] rep came to the department and interrogated the pacemaker. She has had no fires, she has significant amount of battery life left. He believes that she is sensing the atrial firing. The patient feels reassured. Her laboratory investigations showed some chronic changes but no acute changes in her cardiac enzymes. She is to follow-up closely with Dr. Martino, return to the ED with worsening or new concerning symptoms of any sort. - Vital Signs Vital signs: Temp Pulse Resp BP Pulse Ox 98.0 F 76 21 H 102/48 L 100 07/14/20 21:00 07/14/20 21:00 07/14/20 22:01 07/14/20 22:01 07/14/20 22:01 - Laboratory Result Diagrams: 07/14/20 19:45 07/14/20 19:45 Laboratory results interpreted by me: 07/14/20 07/14/20 19:45 19:45 WBC 2.7 L RBC 3.70 L Hgb 10.6 L Hct 32.6 L RDW 15.3 H Plt Count 124 L Absolute Neuts (auto) 1.4 L Est GFR (MDRD) Non-Af 52 L - Diagnostic Test Radiology reviewed: Reports reviewed Radiology results interpreted by me: 07/14/20 22:17 Chest X-Ray 07/14/20 20:28 IMPRESSION: Stable cardiomegaly. No acute process. - EKG Interpretation by Me Additional EKG results interpreted by me: 07/14/20 20:28 Ventricular pacing with underlying atrial fibrillation. Rate of 70. Left axis deviation. Nonspecific ST changes. No significant change compared to prior study. Discharge - Discharge Clinical Impression: Chest pain Qualifiers: Chest pain type: unspecified Qualified Code(s): R07.9 - Chest pain, unspecified Condition: Stable Disposition: HOME, SELF-CARE Instructions: Chest Pain of Unclear Cause ([facility]) Additional Instructions: Your laboratory investigations did not reveal any significant abnormalities here today. The interrogation of your pacemaker/defibrillator showed no abnormalities. Please continue your regular medications as prescribed. Follow- up closely with your satellite tv technician installer next week. If you develop worsening or new concerning symptoms of any sort, please return immediately to the emergency department for evaluation. Referrals: RADHA CUEVAS MD [Primary Care Provider] - Follow up as needed
[2020-07-14 20:41] LABS: ALBUMIN 4.4 g/dL (3.5-5.0); ALKALINE PHOSPHATASE 85 U/L (38-126); ANION GAP 10 (5-19); ASPARTATE AMINO TRANSFERASE 28 U/L (14-36); BILIRUBIN,DIRECT 0.1 mg/dL (0.0-0.4); BILIRUBIN,TOTAL 0.9 mg/dL (0.2-1.3); BLOOD UREA NITROGEN 16 mg/dL (7-20); CALCIUM 9.7 mg/dL (8.4-10.2); CARBON DIOXIDE 24 mmol/L (22-30); CHLORIDE 106 mmol/L (98-107); CREATINE KINASE 71 U/L (30-135); GLUCOSE 97 mg/dL (75-110); POTASSIUM 4.7 mmol/L (3.6-5.0); TOTAL PROTEIN 8.1 g/dL (6.3-8.2)
[2020-07-14 20:59] LABS: CREATINE KINASE MB 0.24 ng/mL (<4.55); TROPONIN I < 0.012 ng/mL
--- NOTE | 2020-07-14 21:07 | RADIOLOGY REPORT (SQ) ---
EXAM DESCRIPTION: CHEST SINGLE VIEW CLINICAL HISTORY: 59 years Female, shock-like chest pain COMPARISON: Portable view of the chest March 07, 2020 FINDINGS: Lungs: Lungs are clear. No focal consolidation. The appearance the lung parenchyma is stable. No pneumothorax. No pleural effusion. Mediastinum: Heart size is enlarged and there is postoperative change of sternotomy. ICD device is in place. The appearance is stable. Bones: Osseous structures are unchanged IMPRESSION: Stable cardiomegaly. No acute process.
[2020-07-14 22:33] VITALS: BP 102/48
--- NOTE | 2020-07-15 07:37 | EKG REPORT ---
SEVERITY:- ABNORMAL ECG - AFIB/FLUT AND V-PACED COMPLEXES NONDIAGNOSTIC : Confirmed by: Alexandro Qureshi MD 15-Jul-2020 07:36:57
== END 2020-07-14 22:35 | disposition home or self-care (01) ==
LOC: ER 18:41
DX: R07.9 Chest pain, unspecified (principal); I11.0 Hypertensive heart disease with heart failure; I50.9 Heart failure, unspecified; R06.02 Shortness of breath; R05 Cough; I48.91 Unspecified atrial fibrillation; I25.2 Old myocardial infarction; Z79.01 Long term (current) use of anticoagulants; Z79.82 Long term (current) use of aspirin; Z79.899 Other long term (current) drug therapy; Z88.0 Allergy status to penicillin; Z88.1 Allergy status to other antibiotic agents; Z87.01 Personal history of pneumonia (recurrent); Z95.810 Presence of automatic (implantable) cardiac defibrillator
CPT/HCPCS: 36415; 71045; 80053; 82550; 82553; 84484; 85025; 93005; 93010; 99285

== ENCOUNTER 2020-07-15 08:14 | Outpatient (CLI) | payer MEDICARE, MEDICAID ==
[~2020-07-15 08:14] MED LIST changes: -FERUMOXYTOL (NON-ESRD) 510 MG/NS 100 ML IV PRN; +FERUMOXYTOL 510 MG in NORMAL SALINE 100 ML IV PRN
[2020-07-15 10:11] VITALS: BP 110/55
== END 2020-07-15 11:00 | disposition home or self-care (01) ==
LOC: II 08:14 → 5TH 08:14 → II 11:00
PROVIDERS: ATTEND Internal Medicine
DX: D50.9 Iron deficiency anemia, unspecified (principal); K90.9 Intestinal malabsorption, unspecified
CPT/HCPCS: 96365; 96367; Q0138; J7050; S0028; J1100; J1200

== ENCOUNTER → 2020-07-21 | Outpatient (CLI) | payer MEDICARE, MEDICAID ==
[2020-07-21 13:55] LABS: ABSOLUTE EOSINOPHILS # (AUTO) 0.1 10^3/uL (0.0-0.6); ABSOLUTE LYMPHOCYTES (AUTO) 0.9 10^3/uL (0.5-4.7); ABSOLUTE MONOCYTES (AUTO) 0.3 10^3/uL (0.1-1.4); ABSOLUTE NEUT (AUTO) 1.6 10^3/uL (1.7-8.2); BASOPHILS % (AUTO) 0.7 % (0-2); EOSINOPHILS % (AUTO) 2.7 % (0-6); HEMATOCRIT 29.3 % (36.0-47.0); HEMOGLOBIN 9.4 g/dL (12.0-15.5); LYMPHOCYTES % (AUTO) 31.2 % (13-45); MEAN CORPUSCULAR HEMOGLOBIN 28.6 pg (27.0-33.4); MEAN CORPUSCULAR HGB CONC 32.1 g/dL (32.0-36.0); MEAN CORPUSCULAR VOLUME 89 fl (80-97); MONOCYTES % (AUTO) 8.9 % (3-13); PLATELET COUNT 105 10^3/uL (150-450); RED CELL DISTRIBUTION WIDTH 16.7 % (11.5-14.0); SEGMENTED NEUTROPHILS % (AUTO) 56.5 % (42-78); TOTAL CELLS COUNTED % (AUTO) 100 %; WHITE BLOOD COUNT 2.9 10^3/uL (4.0-10.5)
== END ==
LOC: OD 12:42
PROVIDERS: ATTEND Specialist
DX: I11.0 Hypertensive heart disease with heart failure (principal); I50.22 Chronic systolic (congestive) heart failure; E78.49 Other hyperlipidemia; I42.8 Other cardiomyopathies; I47.2 Ventricular tachycardia; I36.1 Nonrheumatic tricuspid (valve) insufficiency; I49.01 Ventricular fibrillation; M94.0 Chondrocostal junction syndrome [Tietze]; E66.01 Morbid (severe) obesity due to excess calories; I69.322 Dysarthria following cerebral infarction; R94.30 Abnormal result of cardiovascular function study, unspecified; Z79.899 Other long term (current) drug therapy; Z95.810 Presence of automatic (implantable) cardiac defibrillator
CPT/HCPCS: 36415; 85025

== ENCOUNTER 2020-08-23 20:46 | Emergency (ER) | payer MEDICARE, MEDICAID ==
[2020-08-23] MEDS ORDERED: OXYMETAZOLINE HCL 0.05% NASAL SPRAY 15 ML BOTTLE NASL ONE (22:37)
--- NOTE | 2020-08-23 22:40 | ER Document Report ---
ED Medical Screen (RME) - General Chief Complaint: Nose Bleed Stated Complaint: NOSE BLEED/WEAKNESS/DIZZINESS Time Seen by Provider: 08/23/20 21:04 Primary Care Provider: JOSE ENRIQUE PEREZ MD [Primary Care Provider] - Follow up as needed Notes: Patient presents complaining of nosebleed that started this evening. Patient states that she is had some nausea and dizziness. Patient without any vomiting. Patient does have blood from the right nostril. I have greeted and performed a rapid initial assessment of this patient. A comprehensive ED assessment and evaluation of the patient, analysis of test results and completion of the medical decision making process will be conducted by additional ED providers. TRAVEL OUTSIDE OF THE [place] IN LAST 30 DAYS: No - Related Data Allergies/Adverse Reactions: Penicillins Allergy (Verified 10/31/19 12:15) headaches/dizziness levofloxacin [From Levaquin] Adverse Reaction (Verified 10/31/19 12:15) Vomiting Home Medications: kcl,low dose asa, iron, losartan, nexium, lasix,mwtoprolol, xaralto Past Medical History - Social History Family history: Reviewed & Not Pertinent - Past Medical History Cardiac Medical History: Reports: Hx Atrial Fibrillation, Hx Congestive Heart Failure, Hx Heart Attack, Hx Hypercholesterolemia, Hx Hypertension Denies: Hx Coronary Artery Disease - cath 2011, Hx Peripheral Vascular Disease, Hx Pulmonary Embolism, Hx Heart Murmur Pulmonary Medical History: Reports: Hx Pneumonia Denies: Hx Asthma, Hx Bronchitis, Hx COPD, Hx Respiratory Failure, Hx Sleep Apnea, Hx Tuberculosis Neurological Medical History: Denies: Hx Cerebrovascular Accident, Hx Seizures, Hx Parkinson's Disease Endocrine Medical History: Reports: Hx Hyperthyroidism. Denies: Hx Graves' Disease, Hx Hypothyroidism Renal/ Medical History: Denies: Hx End Stage Renal Disease, Hx Kidney Stones, Hx Ovarian Cysts, Hx Peritoneal Dialysis, Hx Pelvic Inflammatory Disease Malignancy Medical History: Denies: Hx Breast Cancer, Hx Cervical Cancer, Hx Leukemia, Hx Lung Cancer, Hx Ovarian Cancer GI Medical History: Reports: Hx Gastroesophageal Reflux Disease. Denies: Hx Crohn's Disease, Hx Hiatal Hernia, Hx Irritable Bowel, Hx Liver Failure, Hx Pancreatitis, Hx Ulcer Musculoskeltal Medical History: Reports Hx Arthritis - osteoporosis ,RLS, Denies Hx Fibromyalgia, Denies Hx Multiple Sclerosis, Denies Hx Muscular Dystrophy, Denies Hx Systemic Lupus Erythematosus Psychiatric Medical History: Denies: Hx Bipolar Disorder, Hx Dementia, Hx Depression, Hx Post Traumatic Stress Disorder, Hx Schizophrenia Traumatic Medical History: Denies: Hx Fractures Infectious Medical History: Denies: Hx HIV Past Surgical History: Reports: Hx Cardiac Surgery - defibrilator 2008 replaced April,., Hx Cholecystectomy, Hx Internal Defibrillator, Hx Pacemaker. Denies: Hx Appendectomy, Hx Bowel Surgery, Hx Section, Hx Colostomy, Hx Coronary Artery Bypass Graft, Hx Gastric Bypass Surgery, Hx Herniorrhaphy, Hx Hysterectomy, Hx Mastectomy, Hx Tonsillectomy, Hx Tubal Ligation - Immunizations Immunizations up to date: Yes Hx Diphtheria, Pertussis, Tetanus Vaccination: No Physical Exam - Vital signs Vitals: Temp Pulse Resp BP Pulse Ox 98.4 F 70 19 119/34 L 96 08/23/20 20:52 08/23/20 20:52 08/23/20 20:52 08/23/20 20:52 08/23/20 20:52 - General Notes: Active bleeding to the right nostril, only a few drops every couple seconds. Patient does have blood to the posterior pharynx. Patient educated on proper way to pinch the nostril to help with the bleeding. Course - Vital Signs Vital signs: Temp Pulse Resp BP Pulse Ox 98.4 F 70 19 119/34 L 96 08/23/20 20:52 08/23/20 20:52 08/23/20 20:52 08/23/20 20:52 08/23/20 20:52 Doctor's Discharge - Discharge Referrals: JOSE ENRIQUE PEREZ MD [Primary Care Provider] - Follow up as needed
[2020-08-24] MEDS ORDERED: OXYMETAZOLINE HCL 0.05% NASAL SPRAY 15 ML BOTTLE NASL ONE (01:15)
[2020-08-24 02:07] LABS: ABSOLUTE EOSINOPHILS # (AUTO) 0.1 10^3/uL (0.0-0.6); ABSOLUTE LYMPHOCYTES (AUTO) 0.9 10^3/uL (0.5-4.7); ABSOLUTE MONOCYTES (AUTO) 0.3 10^3/uL (0.1-1.4); ABSOLUTE NEUT (AUTO) 1.9 10^3/uL (1.7-8.2); BASOPHILS % (AUTO) 0.6 % (0-2); EOSINOPHILS % (AUTO) 2.3 % (0-6); HEMATOCRIT 32.2 % (36.0-47.0); HEMOGLOBIN 10.7 g/dL (12.0-15.5); LYMPHOCYTES % (AUTO) 29.2 % (13-45); MEAN CORPUSCULAR HEMOGLOBIN 28.9 pg (27.0-33.4); MEAN CORPUSCULAR HGB CONC 33.2 g/dL (32.0-36.0); MEAN CORPUSCULAR VOLUME 87 fl (80-97); MONOCYTES % (AUTO) 8.6 % (3-13); PLATELET COUNT 131 10^3/uL (150-450); RED CELL DISTRIBUTION WIDTH 15.5 % (11.5-14.0); SEGMENTED NEUTROPHILS % (AUTO) 59.3 % (42-78); TOTAL CELLS COUNTED % (AUTO) 100 %; WHITE BLOOD COUNT 3.2 10^3/uL (4.0-10.5)
[2020-08-24 02:12] LABS: INTERNATIONAL RATION (INR) 2.74; PARTIAL THROMBOPLASTIN TIME 46.8 SEC (23.5-35.8); PROTHROMBIN TIME 28.9 SEC (11.4-15.4)
[2020-08-24 02:40] LABS: ALBUMIN 4.2 g/dL (3.5-5.0); ALKALINE PHOSPHATASE 104 U/L (38-126); ANION GAP 9 (5-19); ASPARTATE AMINO TRANSFERASE 24 U/L (14-36); BILIRUBIN,DIRECT 0.3 mg/dL (0.0-0.4); BILIRUBIN,TOTAL 0.8 mg/dL (0.2-1.3); BLOOD UREA NITROGEN 21 mg/dL (7-20); CALCIUM 9.3 mg/dL (8.4-10.2); CARBON DIOXIDE 25 mmol/L (22-30); CHLORIDE 107 mmol/L (98-107); GLUCOSE 104 mg/dL (75-110); POTASSIUM 4.5 mmol/L (3.6-5.0)
--- NOTE | 2020-08-24 03:40 | ER Document Report ---
ED General - General Chief Complaint: Nose Bleed Stated Complaint: NOSE BLEED/WEAKNESS/DIZZINESS Time Seen by Provider: 08/23/20 21:04 Primary Care Provider: JOSE ENRIQUE PEREZ MD [ACTIVE STAFF] - Follow up as needed TRAVEL OUTSIDE OF THE [place] IN LAST 30 DAYS: No - HPI Context: Chief Complaint: [Nosebleed] [59-year-old female with history of A. fib, on Xarelto, presents complaining of nosebleed. Patient has been very congested lately and has been blowing her nose a lot. Patient's bleeding currently has stopped but she felt "kind of weak and dizzy" and wanted to get her hemoglobin checked. ] History obtained from [patient] Symptoms began:[About 2 hours prior to arrival] Onset: [Sudden] Timing: [Sudden] Quality: ["Bloody"] Intensity: [Patient denies pain] Location: [Nose] Radiation: [Denies] [The pain does not migrate to a new location.] Aggravating factors: Patient has a lot of nasal congestion and is on Xarelto Relieving factors: [none] [Denies] SOB [Denies] nausea [Denies] vomiting [Denies] sweats [Denies] fever [Denies] cough [Denies] calf or leg swelling or pain - Related Data Allergies/Adverse Reactions: Penicillins Allergy (Verified 10/31/19 12:15) headaches/dizziness levofloxacin [From Levaquin] Adverse Reaction (Verified 10/31/19 12:15) Vomiting Home Medications: kcl,low dose asa, iron, losartan, nexium, lasix,mwtoprolol, xaralto Past Medical History - General Information source: Patient - Social History Smoking Status: Never Smoker Family History: Reviewed & Not Pertinent, CAD, Hypertension - Past Medical History Cardiac Medical History: Reports: Hx Atrial Fibrillation, Hx Congestive Heart Failure, Hx Heart Attack, Hx Hypercholesterolemia, Hx Hypertension Denies: Hx Coronary Artery Disease - cath 2011, Hx Peripheral Vascular Disease, Hx Pulmonary Embolism, Hx Heart Murmur Pulmonary Medical History: Reports: Hx Pneumonia Denies: Hx Asthma, Hx Bronchitis, Hx COPD, Hx Respiratory Failure, Hx Sleep Apnea, Hx Tuberculosis Neurological Medical History: Denies: Hx Cerebrovascular Accident, Hx Seizures, Hx Parkinson's Disease Endocrine Medical History: Reports: Hx Hyperthyroidism. Denies: Hx Graves' Dise ase, Hx Hypothyroidism Renal/ Medical History: Denies: Hx End Stage Renal Disease, Hx Kidney Stones, Hx Ovarian Cysts, Hx Peritoneal Dialysis, Hx Pelvic Inflammatory Disease Malignancy Medical History: Denies: Hx Breast Cancer, Hx Cervical Cancer, Hx Leukemia, Hx Lung Cancer, Hx Ovarian Cancer GI Medical History: Reports: Hx Gastroesophageal Reflux Disease. Denies: Hx Crohn's Disease, Hx Hiatal Hernia, Hx Irritable Bowel, Hx Liver Failure, Hx Pancreatitis, Hx Ulcer Musculoskeletal Medical History: Reports Hx Arthritis - osteoporosis ,RLS, Denies Hx Fibromyalgia, Denies Hx Multiple Sclerosis, Denies Hx Muscular Dystrophy, Denies Hx Systemic Lupus Erythematosus Psychiatric Medical History: Denies: Hx Bipolar Disorder, Hx Dementia, Hx Depression, Hx Post Traumatic Stress Disorder, Hx Schizophrenia Traumatic Medical History: Denies: Hx Fractures Infectious Medical History: Denies: Hx HIV Past Surgical History: Reports: Hx Cardiac Surgery - defibrilator 2008 replaced April,., Hx Cholecystectomy, Hx Internal Defibrillator, Hx Pacemaker. Denies: Hx Appendectomy, Hx Bowel Surgery, Hx Section, Hx Colostomy, Hx Coronary Artery Bypass Graft, Hx Gastric Bypass Surgery, Hx Herniorrhaphy, Hx Hysterectomy, Hx Mastectomy, Hx Tonsillectomy, Hx Tubal Ligation - Immunizations Immunizations up to date: Yes Hx Diphtheria, Pertussis, Tetanus Vaccination: No Hx Pneumococcal Vaccination: 08/22/12 Review of Systems - Review of Systems Notes: Review of systems as below unless otherwise stated in HPI. CONSTITUTIONAL [No] fever, [No] chills. Positive generalized weakness EYES [No] eye pain. ENT [No] URI symptoms, [No] sore throat, [No] ear pain. Positive epistaxis CARDIOVASCULAR [No] chest pain, [No] palpitations, [No] edema. RESPIRATORY [No] Cough, [No] SOB, [No] wheezing. GASTROINTESTINAL [No] abdominal pain, [No] nausea, [No] Diarrhea, [No] Vomiting, [No] constipation, [No] melena, [No] rectal bleeding. GENITOURINARY [No] dysuria, [No] urinary frequency, [No] hematuria, [No] urinary urgency, [No] vaginal discharge, [No] vaginal bleeding. MUSCULOSKELETAL [No] Back pain. SKIN [No] Rash. NEUROLOGIC [No] Headache, [No] recent seizures, [No] paralysis,[No] parathesias. ENDOCRINE [No] polyuria. HEMO/LYMPATIC [No] easy brusing PSYCHIATRIC [No] depression. Physical Exam - Vital signs Vitals: Temp Pulse Resp BP Pulse Ox 98.4 F 70 19 119/34 L 96 08/23/20 20:52 08/23/20 20:52 08/23/20 20:52 08/23/20 20:52 08/23/20 20:52 - Notes Notes: CONSTITUTIONAL [Vital signs reviewed, Patient appears comfortable, Alert and oriented X 3, Normal stature.] HEAD [Atraumatic, Normocephalic.] EYES [Eyes are normal to inspection, No discharge from eyes, Extraocular muscles intact, Sclera are normal, Conjunctiva are normal.] ENT [External ears normal to inspection, Nose examination reveals a area of friable tissue in the right medial anterior portion of the nasal mucosa. No active bleeding was noted. Mouth normal to inspection. No blood noted on inspection of the posterior oropharynx] NECK [Normal ROM, No jugular venous distention, No meningeal signs, ] RESPIRATORY CHEST [Chest is nontender, Breath sounds normal, No respiratory distress.] CARDIOVASCULAR [RRR, No murmurs, Normal S1 S2, No rub, No gallop.] ABDOMEN [Abdomen is nontender, No pulsatile masses, No other masses, Bowel sounds normal, No distension, No peritoneal signs, No hernias.] BACK [There is no CVA Tenderness, There is no tenderness to palpation, Normal inspection.] UPPER EXTREMITY [Inspection normal, No cyanosis, No clubbing, No edema, LOWER EXTREMITY [Inspection normal, No cyanosis, No clubbing, No edema, No calf tenderness, NEURO [No focal motor deficits, No focal sensory deficits, Speech normal.] SKIN [Skin is warm, Skin is dry, Skin is normal color.] PSYCHIATRIC [Normal affect. ] Course - Re-evaluation Re-evalutation: 08/24/20 06:48 Results of ED MSE discussed with patient. All questions were answered prior to discharge. Emergency signs and symptoms, reasons to return to the emergency de partment discussed with patient. - Vital Signs Vital signs: Temp Pulse Resp BP Pulse Ox 98.4 F 70 16 102/69 98 08/24/20 03:42 08/23/20 20:52 08/24/20 03:42 08/24/20 03:42 08/24/20 03:42 - Laboratory Results Result Diagrams: 08/24/20 01:45 08/24/20 01:45 Laboratory Results Interpreted: 08/24/20 08/24/20 08/24/20 01:45 01:45 01:45 WBC 3.2 L RBC 3.70 L Hgb 10.7 L Hct 32.2 L RDW 15.5 H Plt Count 131 L PT 28.9 H APTT 46.8 H BUN 21 H Est GFR (MDRD) Non-Af 54 L Critical Laboratory Results Reviewed: No Critical Results Attending or Supervising Physician who Reviewed Labs: QUAN MARTINO IV - Radiology Results Critical Radiology Results Reviewed: No Critical Results Attending or Supervising Physician who Reviewed Radiology: QUAN MARTINO IV Procedures - Nosebleed Procedure Right Time completed: 03:15 Location: Anterior Supplies used: Other - Silver nitrate Notes: Area of friable tissue was cauterized. Patient tolerated procedure well. Discharge - Discharge Clinical Impression: Acute anterior epistaxis Condition: Stable Disposition: HOME, SELF-CARE Additional Instructions: Return to the Emergency Department without delay if any worse. HOME CARE INSTRUCTIONS & INFORMATION: Thank you for choosing us for your medical needs. We hope you're satisfied with the care you received. After you leave, you must properly care for your problem and, at the same time, observe i ts progress. Any condition can change. Some illnesses can change rapidly over hours or days. If your condition worsens, return to the Emergency Department or see your physician promptly. ABOUT YOUR X-RAYS AND EKG'S: If you had an EKG or X-rays taken, they have been read by the Emergency Physician. The X-rays and EKG's will also be read by a Radiologist or Bag Machine Tender within 24 hours. If discrepancies are noted, you will be notified by telephone. Please be certain the ED has a correct telephone number & address where you can be reached. Also, realize that some fractures or abnormalities do not show up on initial X-rays. If your symptoms continue, see your physician. ABOUT YOUR LABORATORY TEST: If you had laboratory tests, the results have been reviewed by the Emergency Physician. Some test results (for example cultures) may not be available for several days. You will be contacted if any test result shows you need additional treatment. Please be certain the ED has a correct telephone number and address where you can be reached. ABOUT YOUR MEDICATIONS: You will receive instructions on how to take your medicine on the prescription label you receive. Additional information may be provided by the Pharmacy. If you have questions afterwards, call the ED for clarification or further instructions. Some prescribed medications may cause drowsiness. Do not perform tasks such as driving a car or operating machinery without consulting your Pharmacist. If you feel you need a refill of pain medication, your condition will need re-evaluation. Please do not call for a refill of any medication. ABOUT YOUR SIGNATURE: Signature of this document acknowledges to followin. Understanding that you received emergency treatment and that you may be released before al medical problems are known or treated. Please be certain the ED has a correct phone number & address where you can be reached. 2. Acknowledgement that you will arrange for follow-up care as recommended. 3. Authorization for the Emergency Physician to provide information to your follow-up Physician in order to maximize your care. AT ANY TIME, IF YOUR SYMPTOMS CHANGE SIGNIFICANTLY OR WORSEN OR YOU DEVELOP NEW SYMPTOMS, RETURN TO THE EMERGENCY DEPARTMENT IMMEDIATELY FOR RE-EVALUATION. OUR GOAL IS TO PROVIDE EXCELLENT MEDICAL CARE! WE HOPE THAT WE HAVE MET YOUR EXPECTATIONS DURING YOUR EMERGENCY DEPARTMENT VISIT AND THAT YOU FEEL YOU HAVE RECEIVED EXCELLENT CARE! Nosebleed Instructions There is a significant chance of re-bleeding following a nosebleed. Proper care makes this less likely. Do not touch the nose for 24 hours. Do not blow the nose forcefully for one week. After 24 hours, gently apply Vaseline ointment to both nostrils with the tip of a finger, three times a day, for one week. It's normal to have a bloody mucous discharge for a few days. If active bleeding recurs, blow all the blood from the nose, then sit quietly and pinch the nose as firmly as possible for 10 minutes. If this does not stop the bleeding, return for further care. If packing was left in the nose and it starts to come out of the nostril, either tuck it back in or cut it off. Don't pull it out. Return for recheck and removal of the packing when instructed. Persons with frequent nosebleeds should avoid aspirin (unless prescribed for another reason). Humidity in the bedroom, and petroleum jelly applied to the nostrils at night may help. Referrals: JOSE ENRIQUE PEREZ MD [ACTIVE STAFF] - Follow up as needed
[2020-08-24 03:58] VITALS: BP 102/69
== END 2020-08-24 03:58 | disposition home or self-care (01) ==
LOC: ER 20:46
DX: R04.0 Epistaxis (principal); R53.1 Weakness; R42 Dizziness and giddiness; R09.81 Nasal congestion; I48.91 Unspecified atrial fibrillation; I11.0 Hypertensive heart disease with heart failure; I50.9 Heart failure, unspecified; E78.00 Pure hypercholesterolemia, unspecified; Z88.0 Allergy status to penicillin; Z95.810 Presence of automatic (implantable) cardiac defibrillator; Z79.01 Long term (current) use of anticoagulants
CPT/HCPCS: 99284; 36415; 85025; 85610; 85730; 80053; 30901; A9270; J3490